=== PATIENT | male | born 1945 | race Caucasian/White ===

== ENCOUNTER 2019-09-13 06:05 | Outpatient (RCR) | payer MEDICARE, OTHER, SELFPAY | END 2019-09-21 00:01 | LOC: ONCMED 06:05 | PROVIDERS: Family Provider Nurse Practitioner Family; Referring Provider Thoracic Surgery (Cardiothoracic Vascular Surgery); Visit Provider Internal Medicine Medical Oncology | DX: D50.9 Iron deficiency anemia, unspecified (principal); R05 Cough; R06.02 Shortness of breath; I25.10 Atherosclerotic heart disease of native coronary artery without angina pectoris | CPT/HCPCS: 71275; 80053; 82728; 83540; 83550; 85025; 85610; 86850; 86900; 86901; 86920 ×2; J1642 ×2; J1940; J7050; P9040 ×2; Q9967 ==

== ENCOUNTER 2019-10-14 10:41 | Outpatient (CLI) | payer MEDICARE, OTHER, SELFPAY ==
[2019-10-14 11:34] LABS: Basophils % 0.6 %; Eosinophils # 0.1 10^3/uL (0.0-0.8); Eosinophils % 1.7 %; Hematocrit 40.6 % (42.0-52.0); Hemoglobin 12.4 g/dL (11.7-16.6); Lymphocytes # 0.8 10^3/uL (0.8-4.8); Lymphocytes % 12.1 %; Mean Corpuscular HGB Conc 30.5 g/dL (30.0-36.0); Mean Corpuscular Hemoglobin 25.3 pg (28.0-34.0); Mean Corpuscular Volume 82.7 fL (80-94); Mean Platelet Volume 10.7 fL (7.4-10.4); Monocytes # 0.6 10^3/uL (0.2-0.9); Monocytes % 8.5 %; Neutrophils % 76.8 %; Nucleated Red Blood Cells % 0 %; Platelet Count 271 10^3/cmm (130-400); Red Blood Count 4.91 10^6/uL (4.1-5.3); Red Cell Distribution Width 17.1 % (12.1-15.1); White Blood Count 6.5 10^3/uL (4.0-10.0)
[2019-10-14 11:53] LABS: INR 2.44 (0.8-1.2)
[2019-10-14 11:58] LABS: Alanine Aminotransferase 21 U/L (0-41); Albumin Level 4.1 g/dL (3.5-5.2); Alkaline Phosphatase 128 IU/L (40-130); Aspartate Amino Transferase 20 U/L (0-40); Blood Urea Nitrogen 19 mg/dL (8-23); Calcium 9.5 mg/dL (8.5-10.5); Carbon Dioxide 25 mmol/L (22-29); Chloride 102 mmol/L (98-107); Globulin 2.6 g/dL (1.3-4.6); Glucose 96 mg/dL (74-106); Iron 48 ug/dL (59-158); Percent Saturation 18.4 % (20-50); Sodium 137 mmol/L (136-145); Total Iron Binding Capacity 260 mg/dL; Total Protein 6.7 g/dL (6.6-8.7); Unsaturated Iron Binding 212 ug/dL (112-347)
--- NOTE | 2019-10-16 14:36 | ONC FU_ITS ---
Dr. Lee Patient Follow-Up Note Patient: Tru Quarles Unit #: [id number]: 1945 Dicatated By: Juan Lee M.D.Date of Visit:Oct 14, 2019 Onc Med Follow-up/Prog Note Chief Complaint: Metastatic squamous cell cancer. 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 He presented with several months of chest discomfort and dyspnea, without hemoptysis. He also had progressive dysphagia. Chest x-ray on 10/18/2013 showed bilateral pulmonary nodules. CT of the chest, abdomen, and pelvis on 11/12/2013 revealed numerous pulmonary nodules bilaterally, with a large 4.9 cm mass in the right thoracic inlet, located in the expected location of the thyroid gland, causing deviation of the trachea to the left. There was mediastinal and hilar adenopathy, a 1.3 cm liver lesion, and a mild thickening of the distal esophagus. An FNA of thyroid mass on 11/26/2013 was nondiagnostic. On 12/20/2013 his flexible bronchoscopy showed a left lower lobe extrinsic bronchial compression with thick secretions. Mediastinoscopy recovered left level III and anterior level I lymph nodes. Biopsy revealed metastatic squamous cell carcinoma, positive for CK5, desmoglein and p-63, and negative for TTF-1 and napsin A. P16 was negative. He was first seen by Dr. Parra on 12/29/2013. His PET/CT on 12/31/2013 was inadequate; liver lesions could not be evaluated further due to extravasation of the contrast in the left arm. MRI of the brain was negative for metastatic disease. His endoscopy showed no tumor in the head and neck or esophagus. The patient completed 3500 cGy of palliative radiation treatment to the neck. He was able to receive only 2 weekly doses of carboplatin with AUC of 2, complicated significant radiation induced esophagitis. Systemic chemotherapy with carboplatin AUC of 5 and Abraxane was initiated on 01/31/2014. It was complicated with significant hematological toxicities with ANC dionna at 300, hemoglobin 8.4 g/dL; and acute shingles in the right neck, shoulder region. Restaging PET/CT after 6 cycles of treatment on 06/18/2014 showed a very good partial response to the treatment, with residual FDG negative pulmonary nodules down to only 1 cm. He had no lesions in the liver. Maintenance therapy with Tarceva 150 mg daily began on 07/11/2014. Restaging CT of the chest on 09/29/2014 showed ongoing positive response to the treatment. After 9 cycles of Tarceva a restaging CT of the chest, abdomen, and pelvis on 03/29/15 showed significant progression of disease in the liver. Second line nivolumab began on 04/04/2015, complicated with thyroiditis and decreasing requirement of synthroid. Restaging CT after 7 cycles of nivolumab on 06/27/2015 showed significant progression of disease in the liver as well as lung and mediastinum. His treatment was switched back to carboplatin and Abraxane, as he had a good clinical response with that regimen. Cycle 1 was delivered on 06/29/2015. His treatment was complicated with asthenia and neutropenia, requiring dose reduction. Cycle 3 also required Neulasta prophylaxis. Restaging CT of the abdomen and pelvis on 09/19/2015, after 4 cycles of carboplatin and Abraxane, showed almost total resolution of the liver metastases and decrease in subcarinal adenopathy. 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 As he had a very good response to the treatment, carboplatin was stopped, and he continued treatment with Abraxane alone. Due to hematological toxicities he was able to tolerate only 2 out of [address] His [address] of the chest, abdomen, and pelvis on 12/26/2015 showed unchanged small bilateral pulmonary nodules, but further decrease in the liver mass. Abraxane was continued, and another staging CT of the chest, abdomen, and pelvis on 03/11/2016 showed stable disease, without progression. He continued on Abraxane day 1 & 8 schedule every 3 weeks. He began cycle 14 chemotherapy with single agent Abraxane on 05/02/2016. At that point the treatment was changed to a day 1/day 15 schedule with Neulasta prophylaxis. His day 15 Abraxane was held because of worsening neuropathy and continued gradual performance status decline. He tried increasing his gabapentin to a TID schedule to help the neuropathy symptoms, but it made him crazy , and he went back to twice a day schedule. Restaging CT scan of the chest, abdomen, and pelvis was performed on 05/16/16. Multiple small scattered pulmonary nodules were again noted. There was a nonspecific 19 mm lesion within the liver, directly adjacent to the intrahepatic IVC, not significantly changed from the prior exam. There was a nonspecific 7 mm left adrenal nodule noted. Overall, there was no apparent disease progression. On his follow-up visit in June 2016 he was showing decline in performance status, and with the CT scans showing stable disease, I did opt to put his chemotherapy on hold and just monitor him with observation/expectant management. Repeat CT scans of the chest, abdomen, and pelvis on09/02/2016 showed stable treated and scarred previous pulmonary metastatic nodules. There was no evidence of disease progression. There was stable right superior paratracheal or right lobe thyroid region soft tissue thickening and there was no evidence of a neoplastic process in the abdomen or pelvis. CT scans of the chest, abdomen, and pelvis on 11/29/16 showed no evidence of recurrent or disease progression in the chest. There was stable appearance of multiple bilateral pulmonary nodular foci. There was continued mid- lower third esophageal circumferential wall thickening. There was no evidence of disease progression in the abdomen/pelvis. The hepatic lobe subcapsular lesion was unchanged. There was evidence of right femoral popliteal bypass graft occlusion, but unchanged from previous studies. His restaging CT scans on 06/16/2017 showed no evidence for recurrent or metastatic disease. The liver showed a stable hypodense lesion adjacent to the IVC measuring 1.[address] scans on 09/01/2017 showed no evidence for recurrent metastatic disease throughout the chest, abdomen, and pelvis. Multilobar pulmonary nodules and interstitial thickening appeared stable compared to previous studies. A nodule in the right lobe of the liver appeared stable, possibly representing hemangioma. Diffuse esophageal thickening also appeared unchanged. CT scans of the chest on 12/08/2017 and on 02/24/2018 showed no evidence of recurrent or progressive disease. CT scans of the chest, abdomen, and pelvis on 06/01/2018 showed stable appearance of the chest with bilateral upper and lower lobe nodular scarring, right apical subpleural scarring, and right superior paratracheal soft tissue thickening. There was stable distal third esophageal wall thickening. There was no evidence of a neoplastic process of the abdomen or pelvis. A circumscribed 1.8 cm oval-shaped low-density nodule in the caudate lobe of the liver appeared stable. It was thought to perhaps have peripheral nodular enhancement suggestive of benign cavernous hemangioma. He continued observation/expectant management. His other medical illnesses include hypertension, coronary artery disease, peripheral arterial disease, and COPD. He underwent coronary artery bypass in November 2011 and he underwent femoropopliteal bypass in March 2012. He had a subsequent redo right femoropopliteal bypass, following which he has remained chronically anticoagulated with warfarin. He apparently also has had a mitral valve replacement. He had previously smoked a pack and half of cigarettes daily for 40 years. He quit smoking more than 8 years ago. INTERIM HISTORY: In early August 2018 his had called and reported a significant change in his condition with increased weakness/fatigue and new confusion. MRI of the brain on 09/09/2018 showed evidence of recent right basal ganglia infarct. There was no evidence of metastatic disease. Restaging PET/CT on 09/12/2018 showed tiny subpleural nodules measuring less than 4 mm. There was no evidence of active malignancy. He continued on observation/symptomatic management. Restaging CT scans on 04/16/2019 showed stable bilateral upper and lower lobe subpleural nodular densities and parenchymal scarring, right apical subpleural scarring, and right superior paratracheal soft tissue thickening. There was severe chronic emphysema. Overall, there was no evidence of disease progression in the chest and no evidence of a neoplastic process of the abdomen or pelvis. A left adrenal nodule appeared stable and there was no liver lesion identified. Repeat head MRI on 04/27/2019 showed no evidence of metastatic disease to the brain. There was evidence of remote left cerebellar and right basal ganglia infarcts and there are mild to moderate chronic microvascular ischemic changes noted. As of his follow-up visit on 07/14/2019 there is been no evidence of recurrence/progression of the lung cancer. At that point he was mildly anemic, and his serum iron studies were consistent with iron deficiency. He was started on an oral iron supplement. He was subsequently found to have a positive stool IFOB. With that finding he was referred to Dr. Dozier. On 08/30/2019 he underwent EGD and colonoscopy. There were no abnormal findings on the EGD. The colonoscopy showed a 2.5 cm sessile polyp in the cecum and a 7 mm sessile polyp at the hepatic flexure in the ascending colon. The ascending colon lesion was completely removed, but the cecal lesion was large enough that it had to be removed in piecemeal. Pathology on the hepatic flexure lesion showed tubular adenoma with low-grade dysplasia. The cecal lesion also showed tubular adenoma but with focal high-grade dysplasia arising in a background of low-grade dysplasia. There was no invasive malignancy identified. There was a focus of high-grade dysplasia extending to an edge of the resection. During subsequent followup there was a further drop in the hemoglobin. As of 09/13/2019 it was down to 7.9 g, and at that point he was given a transfusion of 2 units PRBC. He is seen for a follow-up visit. His energy is still not real good, and his activity is limited. ECOG is 2. He has good appetite. He has not had fever. He occasionally has sweating at night. His main complaint now is that he is short of breath with the least bit of exertion. He has not been having chest pain. He has seen Dr. Banerjee, and he is scheduled to have a stress test tomorrow. He currently has no GI or complaints. He has no significant joint or bone pain. He does not complain of headache. He still sometimes feels foggy headed or lightheaded. He also complains that his short-term memory is getting worse. Medications: Albuterol 1 Aerosol, solution Inhalation q 4 hours PRN, Ativan 1 (0.5 mg) Tablet Oral PRN, Atorvastatin Calcium 1 Tablet (of 40 mg) Oral at bedtime, aug betamet 1 (0.05 %) Cream daily PRN, Clindamycin HCl 1 APL (of 1 %) Gel (jelly) Oral PRN, Clopidogrel Bisulfate 1 (75 mg) Tablet Oral daily, Coumadin (5 mg) Tablet Oral Take as Directed, Coumadin (4 mg) Tablet Oral Take as Directed, Flonase Allergy Relief 1 [place](s) (of 50 mcg/act) Suspension Nasal daily PRN, Hydrocodone-Acetaminophen 1 - 2 Tablet (of 5-325 mg) Oral q 4 hours, Hydrocortisone 1 (2.5 %) Cream Topical PRN, Iron 1 Tablet (of 325 (65 fe) mg) Oral midday, Ketoconazole 1 APL (of 2 %) Cream Topical PRN, Klor-Con 10 1 (10 meq) Tablet, controlled release Oral daily, levoFLOXacin 1 Tablet (of 500 mg) Oral PRN, Levothroid 1 Tablet (of 100 mcg) Oral daily, Lidocaine-Prilocaine 1 APL (of 2.5-2.5 %) Cream Topical PRN, Magnesium 1 Tablet (of 250 mg) Oral daily, Melatonin 1 Capsule Oral at bedtime, Metoprolol Tartrate 0.5 Tablet (of 25 mg) Oral daily, Montelukast Sodium 1 Tablet (of 10 mg) Oral daily, Morphine Sulfate 1 - 2 Tablet (of 15 mg) Oral q 2 to 4 hours PRN, Morphine Sulfate Solution Oral PRN, Prochlorperazine Maleate 1 Tablet (of 10 mg) Oral q 4 hours PRN Allergies: ChloraPrep One Step Review of Systems: Constitutional - His energy is not very good. He has limited activity. His appetite is been okay. He has not had fever. He occasionally has sweating at night. ECOG score is 2, ENMT - He has a drippy nose. No mouth sores. No sore throat or difficulty swallowing, Hematologic/Lymphatic - He has just occasional bruising, Respiratory - He has shortness of breath with the least bit of exertion. He has a little bit of cough. No pleuritic pain or hemoptysis, Cardiovascular - No angina pain. No palpitations, Gastrointestinal - No nausea or vomiting. No heartburn or acid reflux. No diarrhea or constipation. No blood in the stool or black stools, Genitourinary (M) - No dysuria or hematuria. No urinary frequency. No urgency or incontinence, Musculoskeletal - No joint or bone pain, Integumentary - No skin complications, Neurologic - No headache. He sometimes feels foggy-headed. He complains of poor short term memory. He has neuropathy in his hands and feet, Psychiatric - No anxiety or depression. He is sleeping OK with melatonin. Vital Signs: Performed on Oct 14, 2019 12:22 Height - 68.00 in Weight - 160.6 lbs (LOW) BSA - 1.86 sq.m BMI - 24.42 Temperature - 97.1 F (LOW) Pulse - 91 /min Respiration - 16 /min BP - 117/62 mm(hg) O2 Sat - 98 % Pain - 0 Physical Examination: Constitutional - He appears somewhat weak generally, Eyes - Sclerae nonicteric. Conjunctivae clear, ENMT - No lesions noted in the oral cavity, Hematologic/Lymphatic - No cervical, clavicular, or axillary adenopathy, Respiratory - Lungs are clear with diminished air movement bilaterally, Cardiovascular - Heart rhythm is regular. There is a II/ systolic murmur. There is no gallop or rub noted, Abdomen - Soft. Liver and spleen are not enlarged. There is no abdominal mass or ascites noted and there is no inguinal adenopathy, Extremities - No edema, Neurologic - There are no focal neurologic deficits noted. Lab/Imaging: Test performed on Oct 14, 2019 11:00 Sodium 137 mmol/L Potassium 4.0 mmol/L Chloride 102 mmol/L CO2 25 mmol/L Anion Gap 14.0 BUN 19 mg/dL Creatinine 1.1 mg/dL Cr Clearance (Est) 60.8600 mL/min Glucose 96 mg/dL Calcium 9.5 mg/dL Protein, Total 6.7 g/dL Albumin 4.1 g/dL Globulin 2.6 g/dL Bilirubin, Total 1.0 mg/dL ALT (SGPT) 21 U/L AST (SGOT) 20 U/L Alkaline Phosphatase 128 IU/L PT 27.40 SECONDS WBC 6.5 10 3/uL INR 2.44 RBC 4.91 10 6/uL HGB 12.4 g/dL HCT 40.6 % MCV 82.7 fL MCH 25.3 pg MCHC 30.5 g/dL RDW 17.1 % Platelet Count 271 10 3/cmm MPV 10.7 fL Neutrophils 5.0 10 3/uL Lymphocytes 0.8 10 3/uL Monocytes 0.6 10 3/uL Eosinophils 0.1 10 3/uL Basophils 0.0 10 3/uL Neutrophil % 76.8 % Lymphocyte % 12.1 % Monocyte % 8.5 % Eosinophil % 1.7 % Basophils % 0.6 % Impression: 1. Patient has metastatic squamous cell carcinoma of unknown primary, but with clinical evidence of lung cancer. He had a large right-sided mass confluent with the thyroid gland, mediastinal adenopathy, bilateral lung nodules, and a liver lesion at initial presentation in September 2013. 2. He completed 35 noemi of radiation to the large mass at the level of the thoracic inlet. He was able to receive 2 weeks of carboplatin AUC of 2 with radiation. 3. Systemic chemotherapy with carboplatin AUC of 5 and Abraxane given from January 2014 to May 2014. Restaging imaging with PET/CT after 6 cycles of chemotherapy with a very good partial response. 4. Maintenance therapy Tarceva at 150 mg daily began on 07/11/14 based on SATURN trial. After 9 months of maintenance therapy he had progression of disease in liver. 5. Second line treatment with Nivolumab 3 mg/kg every 2 weeks began on 04/04/15. Unfortunately repeat CT of the chest abdomen/pelvis on 06/27/2015 after 3 months of treatment showed significant progression of disease in the liver lung and mediastinum. 6. He restarted systemic chemotherapy with carboplatin/Abraxane on 06/29/15. Restaging CT of the chest abdomen and pelvis on 09/19/2015 showed almost complete resolution of the liver metastases and decrease in subcarinal lymphadenopathy. Despite dose reductions, his treatment was complicated by progressive cytopenias, and at that point he continued treatment with Abraxane alone. 7. As of his followup visit in June 2016 he had completed 14 cycles of chemotherapy. Restaging CT scans had shown no obvious disease progression. He was having increasing fatigue and neuropathy symptoms, and at that point I had stopped his chemotherapy and began following him with observation/expectant management. His other medical illnesses include: 8. Hypertension. 9. Coronary artery disease. 10. Peripheral arterial disease. 11. COPD. 12. Hypothyroidism. He had significant improvement in his performance status after stopping chemotherapy. During subsequent follow-up he had remained stable clinically. In August 2018 he experienced a decline in his clinical status with increased weakness/fatigue and confusion. Brain MRI on 09/09/2018 showed no evidence of metastatic disease. There was, however, evidence of a recent right basal ganglia infarct despite the fact that he had been on anticoagulation with warfarin and Plavix. Restaging PET/CT on 09/12/2018 showed tiny subpleural pulmonary nodules measuring less than 4 mm. There was no evidence of active malignancy. At that point he continued on observation/symptomatic management. He has since then continued to complain of having a lightheaded/foggy feeling, and there has been further decline in his performance status. As of March [address] scans showed no evidence of disease progression in the chest and no evidence of a neoplastic process of the abdomen or pelvis. His repeat brain MRI in April 2019 showed evidence of remote left cerebellar and right basal ganglia infarcts, but no evidence of metastatic involvement. During followup his [employer] symptoms persisted. As of his visit on 07/14/2019 he had also become mildly anemic. His serum iron studies were consistent with iron deficiency, and he was subsequently confirmed to have a positive stool IFOB. He was referred to Dr. Dozier. His colonoscopy on 08/30/2019 showed sessile polyps in the cecum and in the ascending colon at the hepatic flexure. The hepatic flexure lesion was a tubular polyp with low-grade dysplasia, and it was completely removed. The cecal lesion was also a tubular adenoma but with focal high-grade dysplasia. It was large enough that it had to be removed piecemeal, and there was noted to be high-grade dysplasia at the edge of the specimen. Since then he has continued to have significant fatigue. He complains that he is short of breath with the least bit of activity. He has not been having chest pain. A specific cause has not been determined, but he currently is undergoing cardiac evaluation with Dr. Banerjee. His hemoglobin at this point is just borderline low, but is transferrin saturation and ferritin are still consistent with iron deficiency. Plan: He remains on observation/expectant management for the lung cancer. He will continue oral iron supplement for the iron deficiency. He will continue cardiology follow-up with Dr. Banerjee. He will continue follow-up for the cecal polyp with Dr. Dozier. I will tentatively plan a follow-up visit in 3 months, but I will continue to monitor his CBC and pro time monthly. If he is not correcting the iron deficiency with oral iron, he will be given parenteral iron replacement with Injectafer. Signed By: Juan Lee M.D. <<Signature on File>>
== END 2019-10-14 10:42 | disposition home or self-care (01) ==
PROVIDERS: PCP Internal Medicine Cardiovascular Disease; Visit Provider Internal Medicine Medical Oncology
DX: Z08 Encounter for follow-up examination after completed treatment for malignant neoplasm (principal); Z85.118 Personal history of other malignant neoplasm of bronchus and lung; I10 Essential (primary) hypertension; I25.10 Atherosclerotic heart disease of native coronary artery without angina pectoris; I73.9 Peripheral vascular disease, unspecified; J43.9 Emphysema, unspecified; R41.3 Other amnesia; R53.83 Other fatigue; D50.9 Iron deficiency anemia, unspecified; R06.02 Shortness of breath; Z79.01 Long term (current) use of anticoagulants; Z79.51 Long term (current) use of inhaled steroids; Z92.3 Personal history of irradiation; Z92.21 Personal history of antineoplastic chemotherapy; Z95.1 Presence of aortocoronary bypass graft; Z92.25 Personal history of immunosuppression therapy; Z87.891 Personal history of nicotine dependence; Z95.2 Presence of prosthetic heart valve; Z86.010 Personal history of colon polyps
CPT/HCPCS: 36591; 80053; 83540; 83550; 85025; 85610; 99214

== ENCOUNTER 2019-10-15 13:03 | Outpatient (CLI) | payer MEDICARE, OTHER, SELFPAY ==
--- NOTE | 2019-10-15 13:30 | USCV_ITS ---
Jeffreychaya Tru Age: 74 Gender: M : 1945 Exam Date: 10/15/2019 13:27 Ordering Phys: Adriel Banerjee MD ([email or web address]) Technologist: Kendall Sanchez Exam Location: [facility] [place] [facility] [place] Indication: CAD SOB BP: 120 / 60 HR: 70 Rhythm: Sinus Technical Quality: Fair MEASUREMENTS (Male / Female) Normal Values 2D ECHO LV Diastolic Diameter PLAX 4.0 cm 4.2 - 5.9 / 3.9 - 5.3 cm LV Systolic Diameter PLAX 2.8 cm IVS Diastolic Thickness 0.9 cm 0.6 - 1.0 / 0.6 - 0.9 cm IVS Systolic Thickness 1.6 cm LVPW Diastolic Thickness 1.2 cm 0.6 - 1.0 / 0.6 - 0.9 cm LVPW Systolic Thickness 1.3 cm LVOT Diameter 2.0 cm LV Ejection Fraction 2D Teich 56.3 % LV Ejection Fraction MOD 2C 71.2 % LV Ejection Fraction 2C AL 73.1 % LA Diameter 3.8 cm LA Width 2.6 cm LA Height 4.8 cm RA Width 3.3 cm RA Height 4.9 cm Aorta at Sinotubular Diameter 2.6 cm M-MODE LV Diastolic Diameter MM 5.1 cm 4.2 - 5.9 / 3.9 - 5.3 cm LV Systolic Diameter MM 3.5 cm LV Ejection Fraction MM Teich 59.4 % IVS Diastolic Thickness MM 1.0 cm 0.6 - 1.0 / 0.6 - 0.9 cm IVS Systolic Thickness MM 1.3 cm LVPW Diastolic Thickness MM 1.4 cm 0.6 - 1.0 / 0.6 - 0.9 cm LVPW Systolic Thickness MM 1.7 cm RV Diastolic Diameter MM 1.6 cm Aortic Annulus Diameter 3.3 cm LA Ao Ratio MM 1.2 MV E Point Septal Separation 0.9 cm DOPPLER AV Peak Velocity 167.0 cm/s LVOT Peak Velocity 74.0 cm/s AV Area Cont Eq vti 1.4 cm squared AV Area Cont Eq pk 1.4 cm squared MV Area PHT 2.9 cm squared Mitral E to A Ratio 0.9 MV E' Velocity 59.0 cm/s TR Peak Velocity 223.0 cm/s TR Peak Gradient 19.9 mmHg TV Peak E Velocity 69.0 cm/s Right Atrial Pressure 3.0 mmHg Pulmonary Artery Systolic Pressu 22.9 mmHg FINDINGS Left Ventricle Normal left ventricular size, systolic function and wall thickness, with no regional wall motion abnormalities. Grade I/IV diastolic dysfunction (abnormal relaxation filling pattern), normal to mildly elevated filling pressures. Left ventricular ejection fraction is estimated at 60 %. Right Ventricle Normal right ventricular size and systolic function. Normal right ventricular systolic pressure. Right Atrium The right atrium is normal in size. Left Atrium The left atrium is normal in size. Mitral Valve Structurally normal mitral valve. Trace mitral valve regurgitation. Aortic Valve Structurally normal trileaflet aortic valve. Moderate aortic valve calcification. Mild aortic valve stenosis, mean gradient 5.1 mmHg, SANKET 1.4 cm squared. Tricuspid Valve Structurally normal tricuspid valve. Trace tricuspid valve regurgitation. Pulmonic Valve Pulmonic valve not well visualized. Pericardium Normal pericardium without effusion. Aorta Normal ascending aorta dimension. CONCLUSIONS Normal left ventricular size, systolic function and wall thickness, with no regional wall motion abnormalities. Grade I/IV diastolic dysfunction (abnormal relaxation filling pattern), normal to mildly elevated filling pressures. Left ventricular ejection fraction is estimated at 60 %. Structurally normal mitral valve. Trace mitral valve regurgitation. Structurally normal trileaflet aortic valve. Moderate aortic valve calcification. Mild aortic valve stenosis, mean gradient 5.1 mmHg, SANKET 1.4 cm squared. There are no prior echocardiogram studies to compare. Dr. Adriel Banerjee MD (Electronically Signed) Final Date: 18 October 2019 17:56 S
== END 2019-10-15 13:04 | disposition home or self-care (01) ==
PROVIDERS: Visit Provider Internal Medicine Cardiovascular Disease
DX: I25.10 Atherosclerotic heart disease of native coronary artery without angina pectoris (principal); I08.3 Combined rheumatic disorders of mitral, aortic and tricuspid valves; R06.02 Shortness of breath; D64.9 Anemia, unspecified; Z95.1 Presence of aortocoronary bypass graft
CPT/HCPCS: 93306

== ENCOUNTER 2019-10-26 08:50 | Outpatient (CLI) | payer MEDICARE, OTHER, SELFPAY ==
--- NOTE | 2019-10-26 09:17 | ECG_ITS ---
NAME OF STUDY: LEXISCAN SESTAMIBI STRESS TEST INDICATION: [Chest Pain; Dyspnea, ] LEXISCAN STRESS TEST ORDERING PHYSICIAN: Lavonne CLINICAL INFORMATION: Chest pain INTERPRETATION: 1. The patient was brought to the laboratory where Lexiscan was infused over 20 seconds. The resting blood pressure was 181/82. Maximum blood pressure was 181/82. The resting heart rate was 58 beats per minute. The maximum heart rate is 89 beats per minute. 2. The baseline electrocardiogram reveals sinus rhythm with right ventricular conduction delay but otherwise a normal tracing. 2 premature atrial contractions. 3. With Lexiscan infusion, there were no ST segment changes to suggest ischemia. [] 4. The patient experienced no symptoms or arrhythmias during the examination. [] CONCLUSION: 1. Unremarkable Lexiscan infusion. [] 2. Nuclear imaging to follow. [] Electronically Signed On 10-26-2019 11:10:28 HOG MAN by Adriel Banerjee M.D. [email or web address]
--- NOTE | 2019-10-26 09:18 | NMCV_ITS ---
NM jey perf SPECT r/s* [id number] Tru Quarles Age: 74 Gender: M : 1945 Exam Date: 10/26/2019 09:18 Ordering Phys: Adriel Banerjee MD ([email or web address]) Technologist: KIRT Shaw Exam Location: [facility] Indications: SOB STRESS TEST Please see separate stress test report in [facility] for full findings IMAGE PROTOCOL Rest/Stress 1 Lexiscan Day Radiopharmaceutical Dose (mCi) Administration Site Administered by Rest: Tc-99m 11.0 IV KIRT Shaw Sestamibi Stress:Tc-99m 32.9 IV KIRT Shaw Sestamibi Rest: 26-Oct-2019 60 Discovery 630 Stress: 26-Oct-2019 45 Discovery 630 0.4mg Lexiscan. Images obtained in supine and prone position. SPECT RESULTS Technical Quality: Excellent Raw Data Analysis: Normal Image Corrections: No attenuation or motion correction applied Summed Stress Score: 0 Summed Rest Score: 1 Summed Difference Score: 0 PERFUSION FINDINGS Medium-size area of decreased tracer uptake noted in basal to distal inferior and inferoseptal wall on the rest images which improved over stress images suggestive of artifact. FUNCTIONAL RESULTS (calculated via Gated SPECT) Stress Image LV EF (%): 55 Stress EDV (mL):47 TID: 0.79 Stress ESV (mL):21 Rest Image LV EF (%): 55 FUNCTIONAL FINDINGS: There is normal left ventricular systolic function. IMPRESSIONS Myocardial perfusion imaging is normal and low probability for obstructive coronary artery disease. EKG segment will be documented separately Aleksandra Moses MD (Electronically Signed) Final Date: 26 October 2019 19:46 S
[2019-10-26 09:21] VITALS: BMI 24.6
[2019-10-26 10:56] VITALS: BP 162/82; PULSE 87
[2019-10-26] MEDS: regadenoson 0.4 Mg/5 ml Syringe IVP (10:56)
== END 2019-10-26 08:51 | disposition home or self-care (01) ==
LOC: CDL 08:52
PROVIDERS: Visit Provider Internal Medicine Cardiovascular Disease
DX: I25.10 Atherosclerotic heart disease of native coronary artery without angina pectoris (principal); R06.02 Shortness of breath; Z95.1 Presence of aortocoronary bypass graft
CPT/HCPCS: 78452; 93017; A9500; J2785

== ENCOUNTER 2019-11-15 11:55 | Outpatient (CLI) | payer MEDICARE, OTHER, SELFPAY ==
[2019-11-15 12:41] LABS: Basophils % 0.3 %; Eosinophils # 0.1 10^3/uL (0.0-0.8); Eosinophils % 1.3 %; Hematocrit 40.4 % (42.0-52.0); Hemoglobin 12.5 g/dL (11.7-16.6); Lymphocytes # 0.6 10^3/uL (0.8-4.8); Lymphocytes % 7.9 %; Mean Corpuscular HGB Conc 30.9 g/dL (30.0-36.0); Mean Corpuscular Hemoglobin 24.8 pg (28.0-34.0); Mean Platelet Volume 10.7 fL (7.4-10.4); Monocytes # 0.7 10^3/uL (0.2-0.9); Monocytes % 8.7 %; Neutrophils # 6.2 10^3/uL (1.8-7.7); Neutrophils % 81.5 %; Nucleated Red Blood Cells % 0 %; Platelet Count 253 10^3/cmm (130-400); Red Blood Count 5.05 10^6/uL (4.1-5.3); Red Cell Distribution Width 18.5 % (12.1-15.1); White Blood Count 7.6 10^3/uL (4.0-10.0)
[2019-11-15 12:55] LABS: INR 2.26 (0.8-1.2)
== END 2019-11-15 11:56 | disposition home or self-care (01) ==
LOC: ONCMED 11:55
PROVIDERS: PCP Family Medicine; Visit Provider Internal Medicine Medical Oncology
DX: C78.02 Secondary malignant neoplasm of left lung (principal); D64.9 Anemia, unspecified; Z51.81 Encounter for therapeutic drug level monitoring; Z79.01 Long term (current) use of anticoagulants
CPT/HCPCS: 36591; 85025; 85610

== ENCOUNTER 2019-12-14 11:09 | Outpatient (CLI) | payer MEDICARE, OTHER, SELFPAY ==
[2019-12-14 11:54] LABS: Basophils % 0.6 %; Eosinophils # 0.2 10^3/uL (0.0-0.8); Eosinophils % 2.2 %; Hematocrit 45.2 % (42.0-52.0); Hemoglobin 14.2 g/dL (11.7-16.6); Lymphocytes % 14.1 %; Mean Corpuscular HGB Conc 31.4 g/dL (30.0-36.0); Mean Corpuscular Hemoglobin 26.8 pg (28.0-34.0); Mean Corpuscular Volume 85.4 fL (80-94); Mean Platelet Volume 10.9 fL (7.4-10.4); Monocytes # 0.6 10^3/uL (0.2-0.9); Monocytes % 8.8 %; Nucleated Red Blood Cells % 0 %; Platelet Count 261 10^3/cmm (130-400); Red Blood Count 5.29 10^6/uL (4.1-5.3); Red Cell Distribution Width 19.1 % (12.1-15.1); White Blood Count 6.8 10^3/uL (4.0-10.0)
[2019-12-14 12:28] LABS: INR 1.97 (0.8-1.2)
[2019-12-14 12:39] LABS: Alanine Aminotransferase 21 U/L (0-41); Alkaline Phosphatase 123 IU/L (40-130); Anion Gap 15.3 (5-19); Aspartate Amino Transferase 21 U/L (0-40); Blood Urea Nitrogen 18 mg/dL (8-23); Calcium 9.5 mg/dL (8.5-10.5); Carbon Dioxide 25 mmol/L (22-29); Chloride 104 mmol/L (98-107); Ferritin 25 ng/mL (30-400); Globulin 2.8 g/dL (1.3-4.6); Glucose 88 mg/dL (65-115); Iron 66 ug/dL (59-158); Osmolality Calculated 286 mOsm/kg (285-295); Percent Saturation 26.2 % (20-50); Potassium 4.3 mmol/L (3.5-5.1); Sodium 140 mmol/L (136-145); Total Bilirubin 0.9 mg/dL (0.15-1.2); Total Iron Binding Capacity 251 mcg/dl; Total Protein 6.8 g/dL (6.6-8.7); Unsaturated Iron Binding 185 ug/dL (112-347)
== END 2019-12-14 11:10 | disposition home or self-care (01) ==
LOC: ONCMED 11:09
PROVIDERS: PCP Family Medicine; Visit Provider Internal Medicine Medical Oncology
DX: D64.9 Anemia, unspecified (principal); Z79.01 Long term (current) use of anticoagulants; C77.1 Secondary and unspecified malignant neoplasm of intrathoracic lymph nodes; C78.02 Secondary malignant neoplasm of left lung; C78.7 Secondary malignant neoplasm of liver and intrahepatic bile duct; C80.1 Malignant (primary) neoplasm, unspecified; Z95.1 Presence of aortocoronary bypass graft
CPT/HCPCS: 36591; 80053; 82728; 83540; 83550; 83735; 85025; 85610

== ENCOUNTER 2020-01-13 12:27 | Outpatient (CLI) | payer MEDICARE, OTHER, SELFPAY ==
[2020-01-13 13:26] LABS: Basophils % 0.6 %; Eosinophils # 0.2 10^3/uL (0.0-0.8); Eosinophils % 2.2 %; Hematocrit 42.8 % (42.0-52.0); Hemoglobin 13.6 g/dL (11.7-16.6); Lymphocytes # 0.8 10^3/uL (0.8-4.8); Lymphocytes % 11.6 %; Mean Corpuscular HGB Conc 31.8 g/dL (30.0-36.0); Mean Corpuscular Volume 84.9 fL (80-94); Mean Platelet Volume 10.8 fL (7.4-10.4); Monocytes # 0.7 10^3/uL (0.2-0.9); Monocytes % 9.5 %; Neutrophils # 5.3 10^3/uL (1.8-7.7); Neutrophils % 75.8 %; Nucleated Red Blood Cells % 0 %; Platelet Count 224 10^3/cmm (130-400); Red Blood Count 5.04 10^6/uL (4.1-5.3); Red Cell Distribution Width 17.4 % (12.1-15.1)
[2020-01-13 13:30] LABS: INR 2.15 (0.8-1.2)
[2020-01-13 13:41] LABS: Alanine Aminotransferase 24 U/L (0-41); Albumin Level 3.8 g/dL (3.5-5.2); Alkaline Phosphatase 115 IU/L (40-130); Anion Gap 16.3 (5-19); Aspartate Amino Transferase 20 U/L (0-40); Blood Urea Nitrogen 21 mg/dL (8-23); Calcium 9.3 mg/dL (8.5-10.5); Carbon Dioxide 25 mmol/L (22-29); Chloride 101 mmol/L (98-107); Ferritin 24 ng/mL (30-400); Glucose 104 mg/dL (65-115); Iron 56 ug/dL (59-158); Osmolality Calculated 283 mOsm/kg (285-295); Percent Saturation 24.1 % (20-50); Potassium 4.3 mmol/L (3.5-5.1); Sodium 138 mmol/L (136-145); Total Bilirubin 0.8 mg/dL (0.15-1.2); Total Iron Binding Capacity 232 mcg/dl; Total Protein 6.8 g/dL (6.6-8.7); Unsaturated Iron Binding 176 ug/dL (112-347)
--- NOTE | 2020-01-13 19:19 | ONC FU_ITS ---
Dr. Lee Patient Follow-Up Note Patient: Tru Quarles Unit #: [id number]: 1945 Dicatated By: Juan Lee M.D.Date of Visit:Jan 13, 2020 Onc Med Follow-up/Prog Note Chief Complaint: Metastatic squamous cell cancer. 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 He presented with several months of chest discomfort and dyspnea, without hemoptysis. He also had progressive dysphagia. Chest x-ray on 10/18/2013 showed bilateral pulmonary nodules. CT of the chest, abdomen, and pelvis on 11/12/2013 revealed numerous pulmonary nodules bilaterally, with a large 4.9 cm mass in the right thoracic inlet, located in the expected location of the thyroid gland, causing deviation of the trachea to the left. There was mediastinal and hilar adenopathy, a 1.3 cm liver lesion, and a mild thickening of the distal esophagus. An FNA of thyroid mass on 11/26/2013 was nondiagnostic. On 12/20/2013 his flexible bronchoscopy showed a left lower lobe extrinsic bronchial compression with thick secretions. Mediastinoscopy recovered left level III and anterior level I lymph nodes. Biopsy revealed metastatic squamous cell carcinoma, positive for CK5, desmoglein and p-63, and negative for TTF-1 and napsin A. P16 was negative. He was first seen by Dr. Parra on 12/29/2013. His PET/CT on 12/31/2013 was inadequate; liver lesions could not be evaluated further due to extravasation of the contrast in the left arm. MRI of the brain was negative for metastatic disease. His endoscopy showed no tumor in the head and neck or esophagus. The patient completed 3500 cGy of palliative radiation treatment to the neck. He was able to receive only 2 weekly doses of carboplatin with AUC of 2, complicated significant radiation induced esophagitis. Systemic chemotherapy with carboplatin AUC of 5 and Abraxane was initiated on 01/31/2014. It was complicated with significant hematological toxicities with ANC dionna at 300, hemoglobin 8.4 g/dL; and acute shingles in the right neck, shoulder region. Restaging PET/CT after 6 cycles of treatment on 06/18/2014 showed a very good partial response to the treatment, with residual FDG negative pulmonary nodules down to only 1 cm. He had no lesions in the liver. Maintenance therapy with Tarceva 150 mg daily began on 07/11/2014. Restaging CT of the chest on 09/29/2014 showed ongoing positive response to the treatment. After 9 cycles of Tarceva a restaging CT of the chest, abdomen, and pelvis on 03/29/15 showed significant progression of disease in the liver. Second line nivolumab began on 04/04/2015, complicated with thyroiditis and decreasing requirement of synthroid. Restaging CT after 7 cycles of nivolumab on 06/27/2015 showed significant progression of disease in the liver as well as lung and mediastinum. His treatment was switched back to carboplatin and Abraxane, as he had a good clinical response with that regimen. Cycle 1 was delivered on 06/29/2015. His treatment was complicated with asthenia and neutropenia, requiring dose reduction. Cycle 3 also required Neulasta prophylaxis. Restaging CT of the abdomen and pelvis on 09/19/2015, after 4 cycles of carboplatin and Abraxane, showed almost total resolution of the liver metastases and decrease in subcarinal adenopathy. 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 As he had a very good response to the treatment, carboplatin was stopped, and he continued treatment with Abraxane alone. Due to hematological toxicities he was able to tolerate only 2 out of [address] His [address] of the chest, abdomen, and pelvis on 12/26/2015 showed unchanged small bilateral pulmonary nodules, but further decrease in the liver mass. Abraxane was continued, and another staging CT of the chest, abdomen, and pelvis on 03/11/2016 showed stable disease, without progression. He continued on Abraxane day 1 & 8 schedule every 3 weeks. He began cycle 14 chemotherapy with single agent Abraxane on 05/02/2016. At that point the treatment was changed to a day 1/day 15 schedule with Neulasta prophylaxis. His day 15 Abraxane was held because of worsening neuropathy and continued gradual performance status decline. He tried increasing his gabapentin to a TID schedule to help the neuropathy symptoms, but it made him crazy , and he went back to twice a day schedule. Restaging CT scan of the chest, abdomen, and pelvis was performed on 05/16/16. Multiple small scattered pulmonary nodules were again noted. There was a nonspecific 19 mm lesion within the liver, directly adjacent to the intrahepatic IVC, not significantly changed from the prior exam. There was a nonspecific 7 mm left adrenal nodule noted. Overall, there was no apparent disease progression. On his follow-up visit in June 2016 he was showing decline in performance status, and with the CT scans showing stable disease, I did opt to put his chemotherapy on hold and just monitor him with observation/expectant management. Repeat CT scans of the chest, abdomen, and pelvis on09/02/2016 showed stable treated and scarred previous pulmonary metastatic nodules. There was no evidence of disease progression. There was stable right superior paratracheal or right lobe thyroid region soft tissue thickening and there was no evidence of a neoplastic process in the abdomen or pelvis. CT scans of the chest, abdomen, and pelvis on 11/29/16 showed no evidence of recurrent or disease progression in the chest. There was stable appearance of multiple bilateral pulmonary nodular foci. There was continued mid- lower third esophageal circumferential wall thickening. There was no evidence of disease progression in the abdomen/pelvis. The hepatic lobe subcapsular lesion was unchanged. There was evidence of right femoral popliteal bypass graft occlusion, but unchanged from previous studies. His restaging CT scans on 06/16/2017 showed no evidence for recurrent or metastatic disease. The liver showed a stable hypodense lesion adjacent to the IVC measuring 1.[address] scans on 09/01/2017 showed no evidence for recurrent metastatic disease throughout the chest, abdomen, and pelvis. Multilobar pulmonary nodules and interstitial thickening appeared stable compared to previous studies. A nodule in the right lobe of the liver appeared stable, possibly representing hemangioma. Diffuse esophageal thickening also appeared unchanged. CT scans of the chest on 12/08/2017 and on 02/24/2018 showed no evidence of recurrent or progressive disease. CT scans of the chest, abdomen, and pelvis on 06/01/2018 showed stable appearance of the chest with bilateral upper and lower lobe nodular scarring, right apical subpleural scarring, and right superior paratracheal soft tissue thickening. There was stable distal third esophageal wall thickening. There was no evidence of a neoplastic process of the abdomen or pelvis. A circumscribed 1.8 cm oval-shaped low-density nodule in the caudate lobe of the liver appeared stable. It was thought to perhaps have peripheral nodular enhancement suggestive of benign cavernous hemangioma. He continued observation/expectant management. His other medical illnesses include hypertension, coronary artery disease, peripheral arterial disease, and COPD. He underwent coronary artery bypass in November 2011 and he underwent femoropopliteal bypass in March 2012. He had a subsequent redo right femoropopliteal bypass, following which he has remained chronically anticoagulated with warfarin. He apparently also has had a mitral valve replacement. He had previously smoked a pack and half of cigarettes daily for 40 years. He quit smoking more than 8 years ago. INTERIM HISTORY: In early August 2018 his had called and reported a significant change in his condition with increased weakness/fatigue and new confusion. MRI of the brain on 09/09/2018 showed evidence of recent right basal ganglia infarct. There was no evidence of metastatic disease. Restaging PET/CT on 09/12/2018 showed tiny subpleural nodules measuring less than 4 mm. There was no evidence of active malignancy. He continued on observation/symptomatic management. Restaging CT scans on 04/16/2019 showed stable bilateral upper and lower lobe subpleural nodular densities and parenchymal scarring, right apical subpleural scarring, and right superior paratracheal soft tissue thickening. There was severe chronic emphysema. Overall, there was no evidence of disease progression in the chest and no evidence of a neoplastic process of the abdomen or pelvis. A left adrenal nodule appeared stable and there was no liver lesion identified. Repeat head MRI on 04/27/2019 showed no evidence of metastatic disease to the brain. There was evidence of remote left cerebellar and right basal ganglia infarcts and there are mild to moderate chronic microvascular ischemic changes noted. As of his follow-up visit on 07/14/2019 there had been no evidence of recurrence/progression of the lung cancer. However, at that point he had become mildly anemic, and his serum iron studies were consistent with iron deficiency. He was started on an oral iron supplement. He was subsequently found to have a positive stool IFOB. With that finding he was referred to Dr. Dozier. On 08/30/2019 he underwent EGD and colonoscopy. There were no abnormal findings on the EGD. The colonoscopy showed a 2.5 cm sessile polyp in the cecum and a 7 mm sessile polyp at the hepatic flexure in the ascending colon. The ascending colon lesion was completely removed, but the cecal lesion was large enough that it had to be removed in piecemeal. Pathology on the hepatic flexure lesion showed tubular adenoma with low-grade dysplasia. The cecal lesion also showed tubular adenoma but with focal high-grade dysplasia arising in a background of low-grade dysplasia. There was no invasive malignancy identified. There was a focus of high-grade dysplasia extending to an edge of the resection. During subsequent followup there was a further drop in the hemoglobin. As of 09/13/2019 it was down to 7.9 g, and at that point he was given a transfusion of 2 units PRBC. As of his follow-up visit on 10/14/2019 his hemoglobin was back up to 12.4 g, but his serum iron studies and ferritin were still consistent with iron deficiency. He was still having significant fatigue, and he continued to complain of shortness of breath. CT pulmonary angiogram at that time showed no evidence of pulmonary embolus. There were advanced chronic emphysematous changes, but there is no acute pulmonary infiltrate. Small subpleural opacities and parenchymal scarring appeared stable, as did soft tissue thickening in the right paratracheal area. A 7 mm adrenal nodule also appeared stable. During that time he also was seen by Dr. Banerjee and his subsequent cardiac evaluation with echocardiogram and stress test were unrevealing. He is seen for a follow-up visit. His main complaint is that any exertion gets him short of breath. He does not have much activity, but he is still able to do some light work. ECOG score is 1. He has good appetite. He has not had fever. He occasionally has night sweating. He does not complain of resting dyspnea or chest pain. He has just occasional cough. He has no GI or complaints. He has no significant joint or bone pain. He still reports having occasional episodes of feeling foggy headed. He continues to have numbness and tingling in his hands and feet. Medications: Albuterol 1 Aerosol, solution Inhalation q 4 hours PRN, Ativan 1 (0.5 mg) Tablet Oral PRN, Atorvastatin Calcium 1 Tablet (of 40 mg) Oral at bedtime, aug betamet 1 (0.05 %) Cream daily PRN, Clindamycin HCl 1 APL (of 1 %) Gel (jelly) Oral PRN, Clopidogrel Bisulfate 1 (75 mg) Tablet Oral daily, Coumadin (5 mg) Tablet Oral Take as Directed, Coumadin (4 mg) Tablet Oral Take as Directed, Flonase Allergy Relief 1 [place](s) (of 50 mcg/act) Suspension Nasal daily PRN, Hydrocodone-Acetaminophen 1 - 2 Tablet (of 5-325 mg) Oral q 4 hours, Hydrocortisone 1 (2.5 %) Cream Topical PRN, Iron 1 Tablet (of 325 (65 fe) mg) Oral midday, Ketoconazole 1 APL (of 2 %) Cream Topical PRN, Klor-Con 10 1 (10 meq) Tablet, controlled release Oral daily, levoFLOXacin 1 Tablet (of 500 mg) Oral PRN, Levothroid 1 Tablet (of 100 mcg) Oral daily, Lidocaine-Prilocaine 1 APL (of 2.5-2.5 %) Cream Topical PRN, Magnesium 1 Tablet (of 250 mg) Oral daily, Melatonin 1 Capsule Oral at bedtime, Metoprolol Tartrate 0.5 Tablet (of 25 mg) Oral daily, Montelukast Sodium 1 Tablet (of 10 mg) Oral daily, Morphine Sulfate 1 - 2 Tablet (of 15 mg) Oral q 2 to 4 hours PRN, Morphine Sulfate Solution Oral PRN, Prochlorperazine Maleate 1 Tablet (of 10 mg) Oral q 4 hours PRN Allergies: ChloraPrep One Step Review of Systems: Constitutional - His energy level is okay. He is mainly sedentary at home. His appetite is good and weight is stable. No fever, chills or hot flashes. He has occasional night sweats. ECOG score is 2, ENMT - No sinus congestion/drainage. No mouth sores. No sore throat or difficulty swallowing, Hematologic/Lymphatic - He bruises easily, Respiratory - He gets shortness of breath with any activity. He has an occasional cough. No pleuritic pain or hemoptysis, Cardiovascular - No angina pain. No palpitations, Gastrointestinal - No nausea or vomiting. No heartburn or acid reflux. No diarrhea or constipation. No blood in the stool or black stools, Genitourinary (M) - No dysuria or hematuria. No urinary frequency. No urgency or incontinence, Musculoskeletal - No joint or bone pain, Integumentary - No skin complications, Neurologic - No headache or dizziness. He has episodes of feeling foggy-headed. He has tingling in his hands, Psychiatric - No anxiety or depression. He is taking Melatonin for sleep. Vital Signs: Performed on Jan 13, 2020 13:39 Height - 68.00 in Weight - 162.2 lbs (HIGH) BSA - 1.87 sq.m BMI - 24.66 Temperature - 97.2 F (LOW) Pulse - 58 /min (LOW) Respiration - 22 /min BP - 128/66 mm(hg) O2 Sat - 99 % Pain - 0 Physical Examination: Constitutional - He looks pretty good generally, Eyes - Sclerae nonicteric. Conjunctivae clear, ENMT - No lesions noted in the oral cavity, Hematologic/Lymphatic - No cervical, clavicular, or axillary adenopathy, Respiratory - Lungs are clear with diminished air movement bilaterally, Cardiovascular - Heart rhythm is irregular. There is a II/ systolic murmur. There is no gallop or rub noted, Abdomen - Soft. Liver and spleen are not enlarged. There is no abdominal mass or ascites noted and there is no inguinal adenopathy, Extremities - No edema, Neurologic - There are no focal neurologic deficits noted. Lab/Imaging: Test performed on Jan 13, 2020 12:51 Ferritin 24 ng/mL Iron 56 mcg/dL Magnesium 2.0 mg/dL Sodium 138 mmol/L Iron Binding Capacity (TIBC) 232 mcg/dl Potassium 4.3 mmol/L % Iron Saturation 24.1 % Chloride 101 mmol/L CO2 25 mmol/L UIBC 176 mcg/dL Anion Gap 16.3 BUN 21 mg/dL Creatinine 1.1 mg/dL Cr Clearance (Est) 60.8600 mL/min Glucose 104 mg/dL Calcium 9.3 mg/dL Protein, Total 6.8 g/dL Albumin 3.8 g/dL Globulin 3.0 g/dL Bilirubin, Total 0.8 mg/dL ALT (SGPT) 24 U/L AST (SGOT) 20 U/L Alkaline Phosphatase 115 IU/L PT 24.70 SECONDS WBC 7.0 10 3/uL INR 2.15 RBC 5.04 10 6/uL HGB 13.6 g/dL HCT 42.8 % MCV 84.9 fL MCH 27.0 pg MCHC 31.8 g/dL RDW 17.4 % Platelet Count 224 10 3/cmm MPV 10.8 fL Neutrophils 5.3 10 3/uL Lymphocytes 0.8 10 3/uL Monocytes 0.7 10 3/uL Eosinophils 0.2 10 3/uL Basophils 0.0 10 3/uL Neutrophil % 75.8 % Lymphocyte % 11.6 % Monocyte % 9.5 % Eosinophil % 2.2 % Basophils % 0.6 % Impression: 1. Patient has metastatic squamous cell carcinoma of unknown primary, but with clinical evidence of lung cancer. He had a large right-sided mass confluent with the thyroid gland, mediastinal adenopathy, bilateral lung nodules, and a liver lesion at initial presentation in September 2013. 2. He completed 35 noemi of radiation to the large mass at the level of the thoracic inlet. He was able to receive 2 weeks of carboplatin AUC of 2 with radiation. 3. Systemic chemotherapy with carboplatin AUC of 5 and Abraxane given from January 2014 to May 2014. Restaging imaging with PET/CT after 6 cycles of chemotherapy with a very good partial response. 4. Maintenance therapy Tarceva at 150 mg daily began on 07/11/14 based on SATURN trial. After 9 months of maintenance therapy he had progression of disease in liver. 5. Second line treatment with Nivolumab 3 mg/kg every 2 weeks began on 04/04/15. Unfortunately repeat CT of the chest abdomen/pelvis on 06/27/2015 after 3 months of treatment showed significant progression of disease in the liver lung and mediastinum. 6. He restarted systemic chemotherapy with carboplatin/Abraxane on 06/29/15. Restaging CT of the chest abdomen and pelvis on 09/19/2015 showed almost complete resolution of the liver metastases and decrease in subcarinal lymphadenopathy. Despite dose reductions, his treatment was complicated by progressive cytopenias, and at that point he continued treatment with Abraxane alone. 7. As of his followup visit in June 2016 he had completed 14 cycles of chemotherapy. Restaging CT scans had shown no obvious disease progression. He was having increasing fatigue and neuropathy symptoms, and at that point I had stopped his chemotherapy and began following him with observation/expectant management. His other medical illnesses include: 8. Hypertension. 9. Coronary artery disease. 10. Peripheral arterial disease. 11. COPD. 12. Hypothyroidism. He had significant improvement in his performance status after stopping chemotherapy. During subsequent follow-up he had remained stable clinically. In August 2018 he experienced a decline in his clinical status with increased weakness/fatigue and confusion. Brain MRI on 09/09/2018 showed no evidence of metastatic disease. There was, however, evidence of a recent right basal ganglia infarct despite the fact that he had been on anticoagulation with warfarin and Plavix. Restaging PET/CT on 09/12/2018 showed tiny subpleural pulmonary nodules measuring less than 4 mm. There was no evidence of active malignancy. At that point he continued on observation/symptomatic management. He then continued to complain of having a lightheaded/foggy feeling, and there was further decline in his performance status. As of March [address] scans showed no evidence of disease progression in the chest and no evidence of a neoplastic process of the abdomen or pelvis. His repeat brain MRI in April 2019 showed evidence of remote left cerebellar and right basal ganglia infarcts, but no evidence of metastatic involvement. During followup his [employer] symptoms persisted. As of his visit on 07/14/2019 he had also become mildly anemic. His serum iron studies were consistent with iron deficiency, and he was subsequently confirmed to have a positive stool IFOB. He was referred to Dr. Dozier. His colonoscopy on 08/30/2019 showed sessile polyps in the cecum and in the ascending colon at the hepatic flexure. The hepatic flexure lesion was a tubular polyp with low-grade dysplasia, and it was completely removed. The cecal lesion was also a tubular adenoma but with focal high-grade dysplasia. It was large enough that it had to be removed piecemeal, and there was noted to be high-grade dysplasia at the edge of the specimen. As of 09/13/2019 his anemia worsened to the point that he required a transfusion of 2 units of PRBC. At that time he complained of increased shortness of breath. CT pulmonary angiogram showed no evidence of pulmonary emboli or other acute findings. There was no obvious recurrence/progression of the lung cancer. He also underwent cardiac evaluation with Dr. Banerjee, and his echocardiogram and stress test were unrevealing. His hemoglobin has since then remained adequate. He is continued to complain of fatigue and shortness of breath. Plan: He will be scheduled for repeat CT pulmonary angiogram. Also arrange for pulmonary consultation with Dr. Fritz. In the absence of any evidence of recurrence/progression of the lung cancer, he remains on observation/expectant management. He will continue to follow-up with Dr. Dozier for the colonic polyps. He will continue his oral iron supplementation. Signed By: Juan Lee M.D. <<Signature on File>>
== END 2020-01-13 12:28 | disposition home or self-care (01) ==
PROVIDERS: Visit Provider Internal Medicine Medical Oncology
DX: Z08 Encounter for follow-up examination after completed treatment for malignant neoplasm (principal); Z85.118 Personal history of other malignant neoplasm of bronchus and lung; D50.9 Iron deficiency anemia, unspecified; K63.5 Polyp of colon; Z92.21 Personal history of antineoplastic chemotherapy; I10 Essential (primary) hypertension; I25.10 Atherosclerotic heart disease of native coronary artery without angina pectoris; I73.9 Peripheral vascular disease, unspecified; J44.9 Chronic obstructive pulmonary disease, unspecified; E03.9 Hypothyroidism, unspecified
CPT/HCPCS: 36591; 80053; 82728; 83540; 83550; 83735; 85025; 85610; 99214

== ENCOUNTER 2020-01-17 13:33 | Outpatient (CLI) | payer MEDICARE, OTHER, SELFPAY ==
--- NOTE | 2020-01-17 13:49 | CT_ITS ---
WS: [id number] CTA OF THE CHEST WITH PULMONARY EMBOLISM PROTOCOL TECHNIQUE: High-resolution contrast enhanced CTA of the chest with coronal and sagittal reformatted i mages with pulmonary embolism protocol. MIP images are also reviewed. CLINICAL INFORMATION: SHORTNESS OF BREATH, LUNG CANCER COMPARISON: CTA chest September 13, 2019 DLP: 801.[address] scans at [facility] use at least one of these dose optimization techniques: automat ed exposure control; mA and/or kV adjustment per patient size (includes targeted exams where dose is matched to clinical indication); or iterative reconstruction. FINDINGS:Proximal main pulmonary arteries are normal. Segmental and subsegmental pulmonary arteries a re normal. No evidence of pulmonary embolus. Advanced chronic emphysematous changes. No acute pulmonary infiltrates. No consolidation or pleural f luid. Stable subpleural opacities and parenchymal scarring. This is unchanged in appearance since the prior examination. Stable right superior paratracheal soft tissue. Chronic calcified granulomatous d isease. V Vascular calcification including coronary. Prior CABG. Sternotomy. Left subclavian Port-A-Cath. Stabl e left adrenal nodule measuring 7 mm. Small esophageal hiatal hernia. Stable anterior wedging in the mid thoracic spine. CT/CT angio chest PE protcl [id number] IMPRESSION: 1. No evidence of pulmonary embolus. 2. Stable subpleural opacities and parenchymal scarring 3. Vascular calcification including coronary. 4. Stable 7 mm adrenal nodule.
[2020-01-17] MEDS: iohexol 350 mg/mL 100 mL Btl IV (14:22)
== END 2020-01-17 13:34 | disposition home or self-care (01) ==
PROVIDERS: Visit Provider Internal Medicine Medical Oncology
DX: C34.90 Malignant neoplasm of unspecified part of unspecified bronchus or lung (principal); R06.02 Shortness of breath
CPT/HCPCS: 71275; Q9967

== ENCOUNTER 2020-02-10 10:50 | Outpatient (CLI) | payer MEDICARE, OTHER, SELFPAY ==
[2020-02-10 11:55] LABS: INR 1.44 (0.8-1.2)
== END 2020-02-10 10:51 | disposition home or self-care (01) ==
LOC: ONCMED 10:54
PROVIDERS: Visit Provider Internal Medicine Medical Oncology
DX: C80.1 Malignant (primary) neoplasm, unspecified (principal); C78.7 Secondary malignant neoplasm of liver and intrahepatic bile duct; C78.02 Secondary malignant neoplasm of left lung; C77.1 Secondary and unspecified malignant neoplasm of intrathoracic lymph nodes
CPT/HCPCS: 36415; 36591; 85610

== ENCOUNTER 2020-02-15 07:59 | Day surgery (SDC) | payer MEDICARE, OTHER, SELFPAY ==
[2020-02-11 13:27] VITALS: BMI 24.5
--- NOTE | 2020-02-15 08:09 | P.HP_ITS ---
Same Day Surgery H&P Indication for Procedure/HPI DATE OF PROCEDURE: February 15, 2020 CHIEF COMPLAINT/INDICATIONFOR SURGICAL PROCEDURE: colon polyps PREOP DIAGNOSIS: Cecal polyp PLANNED PROCEDRUE: Operation Date: 02/15/20 09:25 Proposed Procedures p Colonoscopy 86642 D64.9(Not Applicable) - Santhosh Dozier MD Medications/Allergies* Home Medications Medication Instructions Recorded Confirmed Type albuterol sulfate 0.63 mg/3 mL 0.63 mg INHALATION QID PRN 09/27/19 02/11/20 History solution for nebulization atorvastatin 40 mg tablet 40 mg PO ONCE 09/27/19 02/11/20 History clindamycin phosphate 1 % topical 1 applic TOPICAL ONCE PRN 09/27/19 02/11/20 History gel, once daily clopidogrel 75 mg tablet 75 mg PO ONCE 09/27/19 02/11/20 History ferrous sulfate 325 mg (65 mg 325 mg PO ONCE tab 09/27/19 02/11/20 History iron) tablet fluticasone propionate 50 1 spray INTRANASAL BID PRN 09/27/19 02/11/20 History mcg/actuation nasal spray,suspension hydrocodone 5 mg-acetaminophen 325 1 tab PO BID PRN 09/27/19 02/11/20 History mg tablet levothyroxine 100 mcg capsule 100 mcg PO ONCE 09/27/19 02/11/20 History lorazepam 0.5 mg tablet 0.5 mg PO TID PRN 09/27/19 02/11/20 History magnesium 250 mg tablet 250 mg PO ONCE 09/27/19 02/11/20 History melatonin 1 mg tablet 1 mg PO ONCE 09/27/19 02/11/20 History morphine 15 mg immediate release 15 mg PO BID PRN 09/27/19 02/11/20 History tablet nitroglycerin 0.4 mg sublingual 0.4 mg SUBLINGUAL Q5M PRN 09/27/19 02/11/20 History tablet potassium chloride 10 mEq 10 meq PO ONCE tab 09/27/19 02/11/20 History tablet,extended release prochlorperazine maleate 10 mg 10 mg PO BID PRN 09/27/19 02/11/20 History tablet albuterol sulfate 90 mcg/actuation 90 mcg INHALATION Q6H PRN 01/26/20 02/11/20 History breath activated powder inhaler,sensor diphenhydramine HCl [Benadryl] 25 mg PO BEDTIME 02/11/20 02/11/20 History Allergies/Adverse Reactions Allergy/AdvReac Type Severity Reaction Status Date / Time No Known Allergies Allergy Verified 01/26/20 11:46 Pertinent History/Comorbid Conditions* Medical History (Updated 09/30/19 @ 17:22 by Adriel Banerjee MD) Anemia Carotid stenosis CHD (coronary heart disease) COPD (chronic obstructive pulmonary disease) Dyslipidemia Hypertension Lung cancer Port-A-Cath in place 02/07/14 PVD (peripheral vascular disease) Femoral-popliteal bypass grafting found to be occluded in July 2013. Bilateral iliac stents. SFA on the left is occluded. I believe his bypass surgery was on the left as well. SOBOE (shortness of breath on exertion) Tobacco abuse, in remission Surgical History (Updated 09/30/19 @ 17:22 by Adriel Banerjee MD) H/O circumcision H/O shoulder surgery right shoulder shrapnel removed History of biopsy thyroid 11/26/13 History of esophagogastroduodenoscopy (EGD) Normal History of femoropopliteal bypass right 2011 History of lung biopsy 12/20/[address] Kameron Rojo 2011 left internal mammary to the LAD and a sequential graft to the first obtuse marginal branch then to the posterior descending artery. Status post colonoscopy with polypectomy Cecum: 2.5 cm polyp which is removed piecemeal with cold biopsy forceps Pathology: Tubular adenoma with high-grade dysplasia Family History (Updated 09/30/19 @ 15:12 by Salima Tovar RN) Myocardial infarction Father Stroke Mother Social History Smoking and tobacco status: former smoker Quit status (tobacco): has quit using tobacco Year quit tobacco: 2007 - 2PPD x 40 Years Alcohol intake: current Alcohol intake frequency: holidays/special occasions only Lives independently: Yes Household members: spouse Marital status: service: Yes status details: 7 YEARS Current occupational status: retired History of recent travel: No Current gender identity: Male Roula/Jehovah'S Witness: [employer] Pertinent Exam Findings alert, oriented x 3 and regular rate & rhythm Recommendations Surgery/Procedure today Coding Level of Care Code Acute 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
[2020-02-15 08:20] VITALS: BP 156/116; RESP 18; TEMP 36; O2SAT 99
[2020-02-15 08:26] VITALS: PULSE 57
[2020-02-15] MEDS: sodium chloride 0.9% 1,000 ML 30 ML IV (08:28)
--- NOTE | 2020-02-15 08:59 | P.ANESASSM_ITS ---
Pre-Anesthetic Assessment Pre-Anesthetic Assessment: Height/Weight: Height 1.73 m Weight 73.028 kg Temp Pulse Resp BP Pulse Ox 96.8 F L 57 L 18 156/116 99 02/15/20 08:20 02/15/20 08:26 02/15/20 08:20 02/15/20 08:20 02/15/20 08:20 Preop Diagnosis: Cecal polyp Proposed Procedure: Operation Date: 02/15/20 09:25 Proposed Procedures p Colonoscopy 53550 D64.9(Not Applicable) - Santhosh Dozier MD Last intake: Intake Last Liquid Date 02/08/20 Last Liquid Time 20:00 Last Solid Date 02/15/20 Last Solid Time 20:00 Social: Social History: Tobacco (quit) and No alcohol Exam: Pre-Anes Outpt Exam: alert, oriented x 3, clear to auscultation bila terally and regular rate & rhythm Airway: Submandibular: WNL Cervical ROM: WNL MP: 2 Dentition: Other (teeth ok) History/ROS: No significant history except as noted Pulmonary: Pulmonary: COPD and CONTE CV/HEM: CV/HEM: Anemia, CAD, CHF, HTN and [place] : : None reported Hepatic: Hepatic: None reported GI: GI: None reported Metabolic: Metabolic: Hyperlipidemia and Thyroid Musc/skel: Musc/skel: OA/DJD Neuropsych: Neuropsych: None reported Anesthetic Plan: ASA status: 3 Anesthesia: Anesthesia Evaluation and MAC Risk of > 500 ml blood loss (7ml/kg in children): No Meds/Allergies Current Medications: Current Medications Generic Name Dose Route Start Last Admin Trade Name Freq PRN Reason Stop Dose Admin Sodium Chloride 1,000 mls @ 30 ml s/hr 02/15/20 08:15 02/15/20 08:28 Sodium Chloride 0.9% IV 02/16/20 08:14 30 mls/hr .Q24H SUE Administration PFSH Anesthesia PFSH: Medical History Anemia Carotid stenosis CHD (coronary heart disease) COPD (chronic obstructive pulmonary disease) Dyslipidemia Hypertension Lung cancer Port-A-Cath in place 02/07/14 PVD (peripheral vascular disease) Femoral-popliteal bypass grafting found to be occluded in July 2013. Bilateral iliac stents. SFA on the left is occluded. I believe his bypass surgery was on the left as well. SOBOE (shortness of breath on exertion) Tobacco abuse, in remission Surgical History H/O circumcision H/O shoulder surgery right shoulder shrapnel removed History of biopsy thyroid 11/26/13 History of esophagogastroduodenoscopy (EGD) Normal History of femoropopliteal bypass right 2012 History of lung biopsy 12/20/[address] Kameron Rojo 2011 left internal mammary to the LAD and a sequential graft to the first obtuse marginal branch then to the posterior descending artery. Status post colonoscopy with polypectomy Cecum: 2.5 cm polyp which is removed piecemeal with cold biopsy forceps Pathology: Tubular adenoma with high-grade dysplasia Family History Father Myocardial infarction Mother Stroke Social History Smoking and tobacco status: former smoker Quit status (tobacco): has quit using tobacco Year quit tobacco: 2007 - 2PPD x 40 Years Alcohol intake: current Alcohol intake frequency: holidays/special occasions on ly Lives independently: Yes Household members: spouse Marital status: service: Yes status details: 7 YEARS Current occupational status: retired History of recent travel: No Current gender identity: Male Roula/Voodoo: Sabianism Data Anesthesia Cardiac Studies: No Data to Display
[2020-02-15 09:46] VITALS: BP 94/61; PULSE 61; RESP 18; TEMP 36.1; O2SAT 90
[2020-02-15 10:16] VITALS: BP 110/64; PULSE 58; RESP 18; O2SAT 91
== END 2020-02-15 10:17 | disposition home or self-care (01) ==
PROVIDERS: Visit Provider Surgery
PROC: 0DJD8ZZ Inspection of Lower Intestinal Tract, Via Natural or Artificial Opening Endoscopic (ICD-10-PCS; CPT 45378; principal; 2020-02-15 09:20)
DX: K57.30 Diverticulosis of large intestine without perforation or abscess without bleeding (principal); K64.8 Other hemorrhoids; Z86.010 Personal history of colon polyps; J44.9 Chronic obstructive pulmonary disease, unspecified; I25.10 Atherosclerotic heart disease of native coronary artery without angina pectoris; I25.2 Old myocardial infarction; I11.0 Hypertensive heart disease with heart failure; I50.9 Heart failure, unspecified; E78.5 Hyperlipidemia, unspecified
CPT/HCPCS: 12345; 45378; J2704; J7030

== ENCOUNTER 2020-03-13 10:29 | Outpatient (CLI) | payer MEDICARE, OTHER, SELFPAY ==
[2020-03-13 11:16] LABS: INR 1.67 (0.8-1.2)
== END 2020-03-13 10:30 | disposition home or self-care (01) ==
LOC: ONCMED 10:35
PROVIDERS: Visit Provider Internal Medicine Medical Oncology
DX: C77.1 Secondary and unspecified malignant neoplasm of intrathoracic lymph nodes (principal); C78.02 Secondary malignant neoplasm of left lung; C78.7 Secondary malignant neoplasm of liver and intrahepatic bile duct; C80.1 Malignant (primary) neoplasm, unspecified; Z92.21 Personal history of antineoplastic chemotherapy; Z92.3 Personal history of irradiation; Z45.2 Encounter for adjustment and management of vascular access device; Z95.1 Presence of aortocoronary bypass graft
CPT/HCPCS: 36591; 85610

== ENCOUNTER 2020-03-20 11:00 | Outpatient (CLI) | payer MEDICARE, OTHER, SELFPAY | END 2020-03-20 11:01 | disposition home or self-care (01) | LOC: SLEEP 03-23 09:27 | PROVIDERS: Visit Provider Internal Medicine Critical Care Medicine | DX: J44.9 Chronic obstructive pulmonary disease, unspecified (principal) | CPT/HCPCS: 94762 ==

== ENCOUNTER 2020-03-22 13:31 | Outpatient (CLI) | payer MEDICARE, OTHER, SELFPAY ==
--- NOTE | 2020-03-22 09:44 | PFTS_ITS ---
Date of Study:03/22/20 Date of Dictation: MECHANICS: Forced vital capacity (FVC) is reduced reduced. Forced expiratory volume in one second (FEV1) is . FEV1/FVC is reduced. FLOW VOLUME LOOP: Reduced flow at all lung volumes with significant scooping. LUNG VOLUMES: Total lung capacity (TLC) is normal. Residual volume (RV) is increased. DIFFUSING CAPACITY FOR CARBON MONOXIDE: Moderately reduced. INTERPRETATION: The pulmonary function tests are consistent with severe obstruction. There is significant postbronchodilator response. Lung volumes are consistent with air trapping. Gas exchange (DLCO) is moderately reduced. MTDD
[2020-03-22 14:57] VITALS: O2SAT 94; O2SAT 96
== END 2020-03-22 13:32 | disposition home or self-care (01) ==
PROVIDERS: Visit Provider Internal Medicine Critical Care Medicine
DX: J44.9 Chronic obstructive pulmonary disease, unspecified (principal)
CPT/HCPCS: 94060; 94726; 94729; J7611

== ENCOUNTER 2020-03-28 09:43 | Outpatient (CLI) | payer MEDICARE, OTHER, SELFPAY ==
[2020-03-28 10:33] LABS: INR 1.07 (0.8-1.2)
== END 2020-03-28 09:44 | disposition home or self-care (01) ==
LOC: ONCMED 09:47
PROVIDERS: Visit Provider Internal Medicine Medical Oncology
DX: C78.7 Secondary malignant neoplasm of liver and intrahepatic bile duct (principal); C78.02 Secondary malignant neoplasm of left lung; C77.1 Secondary and unspecified malignant neoplasm of intrathoracic lymph nodes; J44.9 Chronic obstructive pulmonary disease, unspecified; I25.10 Atherosclerotic heart disease of native coronary artery without angina pectoris; I10 Essential (primary) hypertension; I73.9 Peripheral vascular disease, unspecified; Z92.21 Personal history of antineoplastic chemotherapy; Z92.3 Personal history of irradiation
CPT/HCPCS: 36591; 85610

== ENCOUNTER 2020-04-12 09:31 | Outpatient (CLI) | payer MEDICARE, OTHER, SELFPAY ==
[2020-04-12 10:11] LABS: Basophils % 0.7 %; Eosinophils # 0.1 10^3/uL (0.0-0.8); Eosinophils % 1.7 %; Hematocrit 42.2 % (42.0-52.0); Hemoglobin 13.6 g/dL (11.7-16.6); Lymphocytes # 0.8 10^3/uL (0.8-4.8); Mean Corpuscular HGB Conc 32.2 g/dL (30.0-36.0); Mean Corpuscular Hemoglobin 29.1 pg (28.0-34.0); Mean Corpuscular Volume 90.2 fL (80-94); Mean Platelet Volume 10.5 fL (7.4-10.4); Monocytes # 0.5 10^3/uL (0.2-0.9); Monocytes % 8.9 %; Neutrophils % 75.5 %; Nucleated Red Blood Cells % 0 %; Platelet Count 209 10^3/cmm (130-400); Red Blood Count 4.68 10^6/uL (4.1-5.3); Red Cell Distribution Width 14.6 % (12.1-15.1); White Blood Count 5.8 10^3/uL (4.0-10.0)
[2020-04-12 10:19] LABS: INR 0.97 (0.8-1.2)
[2020-04-12 10:34] LABS: Alanine Aminotransferase 22 U/L (0-41); Albumin Level 3.7 g/dL (3.5-5.2); Alkaline Phosphatase 120 IU/L (40-130); Anion Gap 14.5 (5-19); Aspartate Amino Transferase 23 U/L (0-40); Blood Urea Nitrogen 19 mg/dL (8-23); Calcium 8.6 mg/dL (8.5-10.5); Carbon Dioxide 25 mmol/L (22-29); Chloride 105 mmol/L (98-107); Ferritin 44 ng/mL (30-400); Globulin 3.3 g/dL (1.3-4.6); Glucose 90 mg/dL (65-115); Iron 69 ug/dL (59-158); Osmolality Calculated 288 mOsm/kg (285-295); Percent Saturation 33.9 % (20-50); Potassium 3.5 mmol/L (3.5-5.1); Sodium 141 mmol/L (136-145); Total Bilirubin 0.7 mg/dL (0.15-1.2); Total Iron Binding Capacity 203 mcg/dl; Unsaturated Iron Binding 134 ug/dL (112-347)
--- NOTE | 2020-04-13 07:20 | ONC FU_ITS ---
Dr. Lee Patient Follow-Up Note Patient: Tru Quarles Unit #: [id number]: 1945 Dicatated By: Juan Lee M.D.Date of Visit:Apr 12, 2020 Onc Med Follow-up/Prog Note Chief Complaint: Metastatic squamous cell cancer. 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 He presented with several months of chest discomfort and dyspnea, without hemoptysis. He also had progressive dysphagia. Chest x-ray on 10/18/2013 showed bilateral pulmonary nodules. CT of the chest, abdomen, and pelvis on 11/12/2013 revealed numerous pulmonary nodules bilaterally, with a large 4.9 cm mass in the right thoracic inlet, located in the expected location of the thyroid gland, causing deviation of the trachea to the left. There was mediastinal and hilar adenopathy, a 1.3 cm liver lesion, and a mild thickening of the distal esophagus. An FNA of thyroid mass on 11/26/2013 was nondiagnostic. On 12/20/2013 his flexible bronchoscopy showed a left lower lobe extrinsic bronchial compression with thick secretions. Mediastinoscopy recovered left level III and anterior level I lymph nodes. Biopsy revealed metastatic squamous cell carcinoma, positive for CK5, desmoglein and p-63, and negative for TTF-1 and napsin A. P16 was negative. He was first seen by Dr. Parra on 12/29/2013. His PET/CT on 12/31/2013 was inadequate; liver lesions could not be evaluated further due to extravasation of the contrast in the left arm. MRI of the brain was negative for metastatic disease. His endoscopy showed no tumor in the head and neck or esophagus. The patient completed 3500 cGy of palliative radiation treatment to the neck. He was able to receive only 2 weekly doses of carboplatin with AUC of 2, complicated significant radiation induced esophagitis. Systemic chemotherapy with carboplatin AUC of 5 and Abraxane was initiated on 01/31/2014. It was complicated with significant hematological toxicities with ANC dionna at 300, hemoglobin 8.4 g/dL; and acute shingles in the right neck, shoulder region. Restaging PET/CT after 6 cycles of treatment on 06/18/2014 showed a very good partial response to the treatment, with residual FDG negative pulmonary nodules down to only 1 cm. He had no lesions in the liver. Maintenance therapy with Tarceva 150 mg daily began on 07/11/2014. Restaging CT of the chest on 09/29/2014 showed ongoing positive response to the treatment. After 9 cycles of Tarceva a restaging CT of the chest, abdomen, and pelvis on 03/29/15 showed significant progression of disease in the liver. Second line nivolumab began on 04/04/2015, complicated with thyroiditis and decreasing requirement of synthroid. Restaging CT after 7 cycles of nivolumab on 06/27/2015 showed significant progression of disease in the liver as well as lung and mediastinum. His treatment was switched back to carboplatin and Abraxane, as he had a good clinical response with that regimen. Cycle 1 was delivered on 06/29/2015. His treatment was complicated with asthenia and neutropenia, requiring dose reduction. Cycle 3 also required Neulasta prophylaxis. Restaging CT of the abdomen and pelvis on 09/19/2015, after 4 cycles of carboplatin and Abraxane, showed almost total resolution of the liver metastases and decrease in subcarinal adenopathy. 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 As he had a very good response to the treatment, carboplatin was stopped, and he continued treatment with Abraxane alone. Due to hematological toxicities he was able to tolerate only 2 out of [address] His [address] of the chest, abdomen, and pelvis on 12/26/2015 showed unchanged small bilateral pulmonary nodules, but further decrease in the liver mass. Abraxane was continued, and another staging CT of the chest, abdomen, and pelvis on 03/11/2016 showed stable disease, without progression. He continued on Abraxane day 1 & 8 schedule every 3 weeks. He began cycle 14 chemotherapy with single agent Abraxane on 05/02/2016. At that point the treatment was changed to a day 1/day 15 schedule with Neulasta prophylaxis. His day 15 Abraxane was held because of worsening neuropathy and continued gradual performance status decline. He tried increasing his gabapentin to a TID schedule to help the neuropathy symptoms, but it made him crazy , and he went back to twice a day schedule. Restaging CT scan of the chest, abdomen, and pelvis was performed on 05/16/16. Multiple small scattered pulmonary nodules were again noted. There was a nonspecific 19 mm lesion within the liver, directly adjacent to the intrahepatic IVC, not significantly changed from the prior exam. There was a nonspecific 7 mm left adrenal nodule noted. Overall, there was no apparent disease progression. On his follow-up visit in June 2016 he was showing decline in performance status, and with the CT scans showing stable disease, I did opt to put his chemotherapy on hold and just monitor him with observation/expectant management. Repeat CT scans of the chest, abdomen, and pelvis on09/02/2016 showed stable treated and scarred previous pulmonary metastatic nodules. There was no evidence of disease progression. There was stable right superior paratracheal or right lobe thyroid region soft tissue thickening and there was no evidence of a neoplastic process in the abdomen or pelvis. CT scans of the chest, abdomen, and pelvis on 11/29/16 showed no evidence of recurrent or disease progression in the chest. There was stable appearance of multiple bilateral pulmonary nodular foci. There was continued mid- lower third esophageal circumferential wall thickening. There was no evidence of disease progression in the abdomen/pelvis. The hepatic lobe subcapsular lesion was unchanged. There was evidence of right femoral popliteal bypass graft occlusion, but unchanged from previous studies. His restaging CT scans on 06/16/2017 showed no evidence for recurrent or metastatic disease. The liver showed a stable hypodense lesion adjacent to the IVC measuring 1.[address] scans on 09/01/2017 showed no evidence for recurrent metastatic disease throughout the chest, abdomen, and pelvis. Multilobar pulmonary nodules and interstitial thickening appeared stable compared to previous studies. A nodule in the right lobe of the liver appeared stable, possibly representing hemangioma. Diffuse esophageal thickening also appeared unchanged. CT scans of the chest on 12/08/2017 and on 02/24/2018 showed no evidence of recurrent or progressive disease. CT scans of the chest, abdomen, and pelvis on 06/01/2018 showed stable appearance of the chest with bilateral upper and lower lobe nodular scarring, right apical subpleural scarring, and right superior paratracheal soft tissue thickening. There was stable distal third esophageal wall thickening. There was no evidence of a neoplastic process of the abdomen or pelvis. A circumscribed 1.8 cm oval-shaped low-density nodule in the caudate lobe of the liver appeared stable. It was thought to perhaps have peripheral nodular enhancement suggestive of benign cavernous hemangioma. He continued observation/expectant management. His other medical illnesses include hypertension, coronary artery disease, peripheral arterial disease, and COPD. He underwent coronary artery bypass in November 2011 and he underwent femoropopliteal bypass in March 2012. He had a subsequent redo right femoropopliteal bypass, following which he has remained chronically anticoagulated with warfarin. He apparently also has had a mitral valve replacement. He had previously smoked a pack and half of cigarettes daily for 40 years. He quit smoking more than 8 years ago. INTERIM HISTORY: In early August 2018 his had called and reported a significant change in his condition with increased weakness/fatigue and new confusion. MRI of the brain on 09/09/2018 showed evidence of recent right basal ganglia infarct. There was no evidence of metastatic disease. Restaging PET/CT on 09/12/2018 showed tiny subpleural nodules measuring less than 4 mm. There was no evidence of active malignancy. Restaging CT scans on 04/16/2019 showed stable bilateral upper and lower lobe subpleural nodular densities and parenchymal scarring, right apical subpleural scarring, and right superior paratracheal soft tissue thickening. There was severe chronic emphysema. Overall, there was no evidence of disease progression in the chest and no evidence of a neoplastic process of the abdomen or pelvis. A left adrenal nodule appeared stable and there was no liver lesion identified. Repeat head MRI on 04/27/2019 showed no evidence of metastatic disease to the brain. There was evidence of remote left cerebellar and right basal ganglia infarcts and there are mild to moderate chronic microvascular ischemic changes noted. As of his follow-up visit on 07/14/2019 there had been no evidence of recurrence/progression of the lung cancer. However, at that point he had become mildly anemic, and his serum iron studies were consistent with iron deficiency. He was started on an oral iron supplement. He was subsequently found to have a positive stool IFOB. With that finding he was referred to Dr. Dozier. On 08/30/2019 he underwent EGD and colonoscopy. There were no abnormal findings on the EGD. The colonoscopy showed a 2.5 cm sessile polyp in the cecum and a 7 mm sessile polyp at the hepatic flexure in the ascending colon. The ascending colon lesion was completely removed, but the cecal lesion was large enough that it had to be removed in piecemeal. Pathology on the hepatic flexure lesion showed tubular adenoma with low-grade dysplasia. The cecal lesion also showed tubular adenoma but with focal high-grade dysplasia arising in a background of low-grade dysplasia. There was no invasive malignancy identified. There was a focus of high-grade dysplasia extending to an edge of the resection. During subsequent followup there was a further drop in the hemoglobin. As of 09/13/2019 it was down to 7.9 g, and at that point he was given a transfusion of 2 units PRBC. As of his follow-up visit on 10/14/2019 his hemoglobin was back up to 12.4 g, but his serum iron studies and ferritin were still consistent with iron deficiency. He was still having significant fatigue, and he continued to complain of shortness of breath. CT pulmonary angiogram at that time showed no evidence of pulmonary embolus. There were advanced chronic emphysematous changes, but there is no acute pulmonary infiltrate. Small subpleural opacities and parenchymal scarring appeared stable, as did soft tissue thickening in the right paratracheal area. A 7 mm adrenal nodule also appeared stable. During that time he also was seen by Dr. Banerjee and his subsequent cardiac evaluation with echocardiogram and stress test were unrevealing. He continued on observation/expectant management for the squamous cell cancer. He is seen for a follow-up visit. He has not been feeling all that good. His energy is so-so, not great. He has limited activity. ECOG score is 2. His appetite is good. He has not had fever. He sometimes has sweating at night. He is short of breath with activity. He only rarely has cough. He does not complain of chest pain. He has no GI or complaints. He has no significant joint or bone pain. He does not complain of headache. He sometimes has dizziness. He has had ongoing complaint of numbness/tingling in his hands and feet since his chemotherapy. Medications: Ativan 1 (0.5 mg) Tablet Oral PRN, Atorvastatin Calcium 1 Tablet (of 40 mg) Oral at bedtime, apr betamet 1 (0.05 %) Cream daily PRN, Clindamycin HCl 1 APL (of 1 %) Gel (jelly) Oral PRN, Clopidogrel Bisulfate 1 (75 mg) Tablet Oral daily, Coumadin (5 mg) Tablet Oral Take as Directed, Flonase Allergy Relief 1 [facility]) (of 50 mcg/act) Suspension Nasal daily PRN, Hydrocodone-Acetaminophen 1 - 2 Tablet (of 5-325 mg) Oral q 4 hours, Hydrocortisone 1 (2.5 %) Cream Topical PRN, Iron 1 Tablet (of 325 (65 fe) mg) Oral midday, Ketoconazole 1 APL (of 2 %) Cream Topical PRN, Klor-Con 10 1 (10 meq) Tablet, controlled release Oral daily, levoFLOXacin 1 Tablet (of 500 mg) Oral PRN, Levothroid 1 Tablet (of 100 mcg) Oral daily, Lidocaine-Prilocaine 1 APL (of 2.5-2.5 %) Cream Topical PRN, Magnesium 1 Tablet (of 250 mg) Oral daily, Melatonin 1 Capsule Oral at bedtime, Metoprolol Tartrate 0.5 Tablet (of 25 mg) Oral daily, Montelukast Sodium 1 Tablet (of 10 mg) Oral daily, Morphine Sulfate 1 - 2 Tablet (of 15 mg) Oral q 2 to 4 hours PRN, Morphine Sulfate Solution Oral PRN, Prochlorperazine Maleate 1 Tablet (of 10 mg) Oral q 4 hours PRN Allergies: ChloraPrep One Step Review of Systems: Constitutional - His energy has not been great. He is not doing much at home related to getting fatigued with activity. His appetite is good and weight is up a few pounds. No fevers. He has been having occasional night sweats. ECOG score is 2, ENMT - He has a persistent sinus drainage. No mouth sores. No sore throat or difficulty swallowing, Hematologic/Lymphatic - He bruises easily, Respiratory - He gets short of breath with exertion. No cough. No pleuritic pain or hemoptysis, Cardiovascular - No angina pain. No palpitations, Gastrointestinal - No nausea or vomiting. No heartburn or acid reflux. No diarrhea or constipation. No blood in the stool or black stools, Genitourinary (M) - No dysuria or hematuria. No urinary frequency. No urgency or incontinence, Musculoskeletal - No joint or bone pain, Integumentary - No skin complications, Neurologic - No headache. He has occasional dizziness. He has numbness and tingling in his hands and feet. No other focal neurologic symptoms, Psychiatric - No anxiety or depression. No insomnia. Vital Signs: Performed on Apr 12, 2020 10:48 Height - 68.00 in Weight - 164.6 lbs (HIGH) BSA - 1.88 sq.m BMI - 25.03 Temperature - 97.2 F (LOW) Pulse - 79 /min Respiration - 24 /min BP - 153/73 mm(hg) (HIGH) O2 Sat - 97 % Pain - 0 Physical Examination: Constitutional - He looks pretty good generally, though he does appear short of breath with effort, Eyes - Sclerae nonicteric. Conjunctivae clear, ENMT - No lesions noted in the oral cavity, Hematologic/Lymphatic - No cervical, clavicular, or axillary adenopathy, Respiratory - Lungs are clear with diminished air movement bilaterally, Cardiovascular - Heart rhythm appears regular. There is a II/ systolic murmur. There is no gallop or rub noted, Abdomen - Soft. Liver and spleen are not enlarged. There is no abdominal mass or ascites noted and there is no inguinal adenopathy, Extremities - No edema, Neurologic - There are no focal neurologic deficits noted. Lab/Imaging: Test performed on Apr 12, 2020 09:50 Ferritin 44 ng/mL Iron 69 mcg/dL Sodium 141 mmol/L Iron Binding Capacity (TIBC) 203 mcg/dl Potassium 3.5 mmol/L % Iron Saturation 33.9 % Chloride 105 mmol/L CO2 25 mmol/L UIBC 134 mcg/dL Anion Gap 14.5 BUN 19 mg/dL Creatinine 1.1 mg/dL Cr Clearance (Est) 60.8600 mL/min Glucose 90 mg/dL Calcium 8.6 mg/dL Protein, Total 7.0 g/dL Albumin 3.7 g/dL Globulin 3.3 g/dL Bilirubin, Total 0.7 mg/dL ALT (SGPT) 22 U/L AST (SGOT) 23 U/L Alkaline Phosphatase 120 IU/L PT 13.20 SECONDS WBC 5.8 10 3/uL INR 0.97 RBC 4.68 10 6/uL HGB 13.6 g/dL HCT 42.2 % MCV 90.2 fL MCH 29.1 pg MCHC 32.2 g/dL RDW 14.6 % Platelet Count 209 10 3/cmm MPV 10.5 fL Neutrophils 4.40 10 3/uL Lymphocytes 0.8 10 3/uL Monocytes 0.5 10 3/uL Eosinophils 0.1 10 3/uL Basophils 0.0 10 3/uL Neutrophil % 75.5 % Lymphocyte % 13.0 % Monocyte % 8.9 % Eosinophil % 1.7 % Basophils % 0.7 % NRBC % 0 % Impression: 1. Patient has metastatic squamous cell carcinoma of unknown primary, but with clinical evidence of lung cancer. He had a large right-sided mass confluent with the thyroid gland, mediastinal adenopathy, bilateral lung nodules, and a liver lesion at initial presentation in September 2013. 2. He completed 35 noemi of radiation to the large mass at the level of the thoracic inlet. He was able to receive 2 weeks of carboplatin AUC of 2 with radiation. 3. Systemic chemotherapy with carboplatin AUC of 5 and Abraxane given from January 2014 to May 2014. Restaging imaging with PET/CT after 6 cycles of chemotherapy with a very good partial response. 4. Maintenance therapy Tarceva at 150 mg daily began on 07/11/14 based on SATURN trial. After 9 months of maintenance therapy he had progression of disease in liver. 5. Second line treatment with Nivolumab 3 mg/kg every 2 weeks began on 04/04/15. Unfortunately repeat CT of the chest abdomen/pelvis on 06/27/2015 after 3 months of treatment showed significant progression of disease in the liver lung and mediastinum. 6. He restarted systemic chemotherapy with carboplatin/Abraxane on 06/29/15. Restaging CT of the chest abdomen and pelvis on 09/19/2015 showed almost complete resolution of the liver metastases and decrease in subcarinal lymphadenopathy. Despite dose reductions, his treatment was complicated by progressive cytopenias, and at that point he continued treatment with Abraxane alone. 7. As of his followup visit in June 2016 he had completed 14 cycles of chemotherapy. Restaging CT scans had shown no obvious disease progression. He was having increasing fatigue and neuropathy symptoms, and at that point I had stopped his chemotherapy and began following him with observation/expectant management. His other medical illnesses include: 8. Hypertension. 9. Coronary artery disease. 10. Peripheral arterial disease. 11. COPD. 12. Hypothyroidism. He had significant improvement in his performance status after stopping chemotherapy. During subsequent follow-up he had remained stable clinically. In August 2018 he experienced a decline in his clinical status with increased weakness/fatigue and confusion. Brain MRI on 09/09/2018 showed no evidence of metastatic disease. There was, however, evidence of a recent right basal ganglia infarct despite the fact that he had been on anticoagulation with warfarin and Plavix. Restaging PET/CT on 09/12/2018 showed tiny subpleural pulmonary nodules measuring less than 4 mm. There was no evidence of active malignancy. At that point he continued on observation/symptomatic management. He then continued to complain of having a lightheaded/foggy feeling, and there was further decline in his performance status. As of March [address] scans showed no evidence of disease progression in the chest and no evidence of a neoplastic process of the abdomen or pelvis. His repeat brain MRI in April 2019 showed evidence of remote left cerebellar and right basal ganglia infarcts, but no evidence of metastatic involvement. During followup his [employer] symptoms persisted. As of his visit on 07/14/2019 he had also become mildly anemic. His serum iron studies were consistent with iron deficiency, and he was subsequently confirmed to have a positive stool IFOB. He was referred to Dr. Dozier. His colonoscopy on 08/30/2019 showed sessile polyps in the cecum and in the ascending colon at the hepatic flexure. The hepatic flexure lesion was a tubular polyp with low-grade dysplasia, and it was completely removed. The cecal lesion was also a tubular adenoma but with focal high-grade dysplasia. It was large enough that it had to be removed piecemeal, and there was noted to be high-grade dysplasia at the edge of the specimen. As of 09/13/2019 his anemia worsened to the point that he required a transfusion of 2 units of PRBC. At that time he complained of increased shortness of breath. CT pulmonary angiogram showed no evidence of pulmonary emboli or other acute findings. There was no obvious recurrence/progression of the lung cancer. He also underwent cardiac evaluation with Dr. Banerjee, and his echocardiogram and stress test were unrevealing. His hemoglobin had subsequently remained adequate. During follow-up he is continued to have some fatigue and shortness of breath. His blood counts remain adequate. His pro time for some reason has become subtherapeutic. Overall, though, he is still doing pretty well clinically with no evidence for further recurrence/progression of the squamous cell cancer. Plan: He is given instructions for increasing his warfarin dosage over the weekend, and his pro time will be rechecked on Friday. He is advised now to go ahead and stop his iron supplement. He will be scheduled for a follow-up visit in 3 months. In the meantime, I also will schedule a restaging chest CT, as it has been 6 months since his last study. Signed By: Juan Lee M.D. <<Signature on File>>
== END 2020-04-12 09:32 | disposition home or self-care (01) ==
LOC: ONCMED 09:36
PROVIDERS: PCP Family Medicine; Visit Provider Internal Medicine Medical Oncology
DX: Z08 Encounter for follow-up examination after completed treatment for malignant neoplasm (principal); Z85.118 Personal history of other malignant neoplasm of bronchus and lung; Z79.01 Long term (current) use of anticoagulants; D50.9 Iron deficiency anemia, unspecified; I10 Essential (primary) hypertension; I25.10 Atherosclerotic heart disease of native coronary artery without angina pectoris; I73.9 Peripheral vascular disease, unspecified; J44.9 Chronic obstructive pulmonary disease, unspecified; E03.9 Hypothyroidism, unspecified; Z92.21 Personal history of antineoplastic chemotherapy; Z86.73 Personal history of transient ischemic attack (TIA), and cerebral infarction without residual deficits; Z86.010 Personal history of colon polyps
CPT/HCPCS: 36591; 80053; 82728; 83540; 83550; 85025; 85610; 99214

== ENCOUNTER 2020-04-17 12:56 | Outpatient (CLI) | payer MEDICARE, OTHER, SELFPAY ==
[2020-04-17 14:19] LABS: Alanine Aminotransferase 34 U/L (0-41); Albumin Level 4.1 g/dL (3.5-5.2); Alkaline Phosphatase 113 IU/L (40-130); Aspartate Amino Transferase 27 U/L (0-40); Blood Urea Nitrogen 26 mg/dL (8-23); Calcium 9.4 mg/dL (8.5-10.5); Carbon Dioxide 26 mmol/L (22-29); Chloride 103 mmol/L (98-107); Chol HDL Ratio 4.97 mg/dL (1.0-5.00); Cholesterol 184 mg/dL (0-200); Globulin 2.8 g/dL (1.3-4.6); Glucose 86 mg/dL (65-115); HDL Cholesterol 37 mg/dL (60-100); LDL Cholesterol Calculated 87 mg/dL (50-129); LDL HDL Ratio 2.35 RATIO (0.00-3.22); Osmolality Calculated 284 mOsm/kg (285-295); Sodium 139 mmol/L (136-145); Thyroid Stimulating Hormone 4.51 uIU/mL (0.27-4.20); Total Bilirubin 0.5 mg/dL (0.15-1.2); Total Protein 6.9 g/dL (6.6-8.7); Triglycerides 300 mg/dL (0-150)
== END 2020-04-17 12:57 | disposition home or self-care (01) ==
PROVIDERS: PCP Family Medicine; Visit Provider Nurse Practitioner
DX: Z51.81 Encounter for therapeutic drug level monitoring (principal); Z79.01 Long term (current) use of anticoagulants; E03.9 Hypothyroidism, unspecified; E78.5 Hyperlipidemia, unspecified
CPT/HCPCS: 36591; 80053; 80061; 84443; 85610

== ENCOUNTER 2020-04-19 13:01 | Outpatient (CLI) | payer MEDICARE, OTHER, SELFPAY ==
--- NOTE | 2020-04-19 13:12 | CT_ITS ---
WS: [id number] CT CHEST WITH INTRAVENOUS CONTRAST HISTORY: LUNG CANCER TECHNIQUE: Contiguous 5 mm axial imaging performed on the thorax. Coronal and sagittal reformats are submitted. All CT scans at [facility] use at least one of these dose optimization techniq ues: automated exposure control; mA and/or kV adjustment per patient size (includes targeted exams wh ere dose is matched to clinical indication); or iterative reconstruction. CONTRAST: Visipaque 320; 95 mL IV. DLP: 774.15 mGycm COMPARISON: 01/17/2020 and 09/13/2019 Lungs and central airway: Hyperexpanded lungs with changes of emphysema. Soft tissue thickening along the medial RIGHT upper thorax is stable. There are adjacent pleural and subpleural nodules which are stable in size. No new mass or nodules. Pleura: Normal. No pleural effusion. Heart and pericardium: Normal size heart. Prior CABG. No pericardial effusion. Mediastinum and areli: No adenopathy. Vessels: LEFT subclavian Port-A-Cath remains present. There is extensive atherosclerosis of the thora cic aorta. Extensive coronary artery calcifications. Normal size pulmonary artery. Chest wall and lower neck: Prior median sternotomy. Upper abdomen: There is circumferential moderate thickening of the mid to distal esophagus. Similar f indings were noted on prior studies. Nodule associated with the LEFT lateral adrenal limb measures 7 mm. There is mild diffuse cortical thinning involving the upper poles of each kidney. Osseous structures: Mild anterior compression fractures throughout the thoracic spine. No new fractur e or osteoblastic or osteolytic bone disease. CT/CT chest w con* [id number] IMPRESSION: 1. Chronic emphysema with stable pleural and subpleural nodules. No new or inc reasing nodule or mass. 2. No adenopathy. 3. Prior CABG. 4. Extensive atherosclerosis aorta. 5. Circumferential moderate thickening of the esophagus. May be related to eso phagitis from reflux disease. 6. Stable LEFT adrenal nodule.
[2020-04-19] MEDS: iodixanol 320 mg/mL 100mL Btl IV (13:30)
== END 2020-04-19 13:02 | disposition home or self-care (01) ==
LOC: RADWPI 13:05
PROVIDERS: Family Provider Family Medicine; PCP Family Medicine; Visit Provider Internal Medicine Medical Oncology
DX: C34.90 Malignant neoplasm of unspecified part of unspecified bronchus or lung (principal); J43.8 Other emphysema; Z95.1 Presence of aortocoronary bypass graft; I70.0 Atherosclerosis of aorta; D49.7 Neoplasm of unspecified behavior of endocrine glands and other parts of nervous system
CPT/HCPCS: 71260; Q9967

== ENCOUNTER 2020-05-15 12:47 | Outpatient (CLI) | payer MEDICARE, OTHER, SELFPAY ==
[2020-05-15 14:30] LABS: INR 1.23 (0.8-1.2)
== END 2020-05-15 12:48 | disposition home or self-care (01) ==
LOC: ONCMED 12:50
PROVIDERS: PCP Family Medicine; Visit Provider Internal Medicine Medical Oncology
DX: Z79.01 Long term (current) use of anticoagulants (principal)
CPT/HCPCS: 36591; 85610

== ENCOUNTER 2020-05-22 06:00 | Outpatient (RCR) | payer MEDICARE, OTHER, SELFPAY | END 2021-05-22 23:59 | disposition home or self-care (01) | LOC: TPT 06:00 | PROVIDERS: PCP Family Medicine; Referring Provider Internal Medicine Critical Care Medicine; Visit Provider Internal Medicine Critical Care Medicine | DX: R53.1 Weakness (principal) | CPT/HCPCS: 85610; 97110; 97162 ==

== ENCOUNTER 2020-05-31 13:07 | Outpatient (CLI) | payer MEDICARE, OTHER, SELFPAY ==
[2020-05-31 14:03] LABS: INR 1.22 (0.8-1.2)
== END 2020-05-31 13:08 | disposition home or self-care (01) ==
PROVIDERS: PCP Family Medicine; Visit Provider Internal Medicine Medical Oncology
DX: Z51.81 Encounter for therapeutic drug level monitoring (principal); Z79.01 Long term (current) use of anticoagulants
CPT/HCPCS: 36591; 85610

== ENCOUNTER 2020-06-13 05:56 | Outpatient (CLI) | payer MEDICARE, OTHER, SELFPAY | END 2020-06-13 05:57 | disposition home or self-care (01) | LOC: ONCMED 05:58 | PROVIDERS: PCP Family Medicine; Visit Provider Internal Medicine Medical Oncology | DX: C77.1 Secondary and unspecified malignant neoplasm of intrathoracic lymph nodes (principal); C78.02 Secondary malignant neoplasm of left lung; C78.7 Secondary malignant neoplasm of liver and intrahepatic bile duct | CPT/HCPCS: 36591; 85610 ==

== ENCOUNTER → 2020-06-27 16:04 | Outpatient (BNVA) | payer MEDICARE, OTHER, SELFPAY | PROVIDERS: PCP Family Medicine; Visit Provider Internal Medicine | DX: Z11.59 Encounter for screening for other viral diseases (principal) | CPT/HCPCS: 87635 ==

== ENCOUNTER 2020-07-13 06:16 | Outpatient (CLI) | payer MEDICARE, OTHER, SELFPAY ==
[2020-07-13 11:39] LABS: INR 6.96 (0.8-1.2)
== END 2020-07-13 06:17 | disposition home or self-care (01) ==
LOC: ONCMED 06:19
PROVIDERS: PCP Family Medicine; Visit Provider Internal Medicine Medical Oncology
DX: C78.7 Secondary malignant neoplasm of liver and intrahepatic bile duct (principal); C77.1 Secondary and unspecified malignant neoplasm of intrathoracic lymph nodes; C78.02 Secondary malignant neoplasm of left lung; Z45.2 Encounter for adjustment and management of vascular access device; Z92.3 Personal history of irradiation; Z92.21 Personal history of antineoplastic chemotherapy
CPT/HCPCS: 36591; 85610

== ENCOUNTER 2020-07-17 06:27 | Outpatient (CLI) | payer MEDICARE, OTHER, SELFPAY ==
[2020-07-17 10:36] LABS: INR 1.56 (0.8-1.2)
== END 2020-07-17 06:28 | disposition home or self-care (01) ==
LOC: ONCMED 06:30
PROVIDERS: PCP Family Medicine; Visit Provider Internal Medicine Medical Oncology
DX: Z51.81 Encounter for therapeutic drug level monitoring (principal); Z79.01 Long term (current) use of anticoagulants
CPT/HCPCS: 36591; 85610

== ENCOUNTER 2020-07-24 06:29 | Outpatient (CLI) | payer MEDICARE, OTHER, SELFPAY ==
[2020-07-24 10:32] LABS: INR 4.57 (0.8-1.2)
== END 2020-07-24 06:30 | disposition home or self-care (01) ==
LOC: ONCMED 06:31
PROVIDERS: Internal Medicine Medical Oncology; PCP Family Medicine; Visit Provider Nurse Practitioner
DX: C80.1 Malignant (primary) neoplasm, unspecified (principal); C77.1 Secondary and unspecified malignant neoplasm of intrathoracic lymph nodes; C78.02 Secondary malignant neoplasm of left lung; C78.7 Secondary malignant neoplasm of liver and intrahepatic bile duct; I25.10 Atherosclerotic heart disease of native coronary artery without angina pectoris; Z95.5 Presence of coronary angioplasty implant and graft; Z92.21 Personal history of antineoplastic chemotherapy; Z92.3 Personal history of irradiation; Z45.2 Encounter for adjustment and management of vascular access device
CPT/HCPCS: 36591; 85610

== ENCOUNTER 2020-08-01 06:13 | Outpatient (CLI) | payer MEDICARE, OTHER, SELFPAY ==
[2020-08-01 13:31] LABS: Basophils # 0.1 10^3/uL (0.0-0.1); Basophils % 0.8 %; Eosinophils # 0.1 10^3/uL (0.0-0.8); Hemoglobin 13.8 g/dL (11.7-16.6); Lymphocytes # 0.9 10^3/uL (0.8-4.8); Lymphocytes % 14.3 %; Mean Corpuscular HGB Conc 32.9 g/dL (30.0-36.0); Mean Corpuscular Hemoglobin 29.4 pg (28.0-34.0); Mean Corpuscular Volume 89.6 fL (80-94); Mean Platelet Volume 10.4 fL (7.4-10.4); Monocytes # 0.6 10^3/uL (0.2-0.9); Monocytes % 9.1 %; Neutrophils # 4.66 10^3/uL (1.8-7.7); Neutrophils % 73.5 %; Nucleated Red Blood Cells % 0 %; Platelet Count 247 10^3/cmm (130-400); Red Blood Count 4.69 10^6/uL (4.1-5.3); Red Cell Distribution Width 14.1 % (12.1-15.1); White Blood Count 6.4 10^3/uL (4.0-10.0)
[2020-08-01 13:41] LABS: INR 2.56 (0.8-1.2)
[2020-08-01 13:59] LABS: Alanine Aminotransferase 26 U/L (0-41); Albumin Level 3.7 g/dL (3.5-5.2); Alkaline Phosphatase 118 IU/L (40-130); Aspartate Amino Transferase 21 U/L (0-40); Blood Urea Nitrogen 15 mg/dL (8-23); Carbon Dioxide 25 mmol/L (22-29); Chloride 105 mmol/L (98-107); Globulin 3.2 g/dL (1.3-4.6); Glucose 96 mg/dL (65-115); Iron 77 ug/dL (59-158); Osmolality Calculated 291 mOsm/kg (285-295); Sodium 140 mmol/L (136-145); Total Bilirubin 0.8 mg/dL (0.15-1.2); Total Iron Binding Capacity 220 mcg/dl; Total Protein 6.9 g/dL (6.6-8.7); Unsaturated Iron Binding 143 ug/dL (112-347)
--- NOTE | 2020-08-01 17:12 | ONC FU_ITS ---
Dr. Lee Patient Follow-Up Note Patient: Tru Quarles Unit #: [id number]: 1945 Dicatated By: Juan Lee M.D.Date of Visit:Aug 01, 2020 Onc Med Follow-up/Prog Note Chief Complaint: Metastatic squamous cell cancer. 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 He presented with several months of chest discomfort and dyspnea, without hemoptysis. He also had progressive dysphagia. Chest x-ray on 10/18/2013 showed bilateral pulmonary nodules. CT of the chest, abdomen, and pelvis on 11/12/2013 revealed numerous pulmonary nodules bilaterally, with a large 4.9 cm mass in the right thoracic inlet, located in the expected location of the thyroid gland, causing deviation of the trachea to the left. There was mediastinal and hilar adenopathy, a 1.3 cm liver lesion, and a mild thickening of the distal esophagus. An FNA of thyroid mass on 11/26/2013 was nondiagnostic. On 12/20/2013 his flexible bronchoscopy showed a left lower lobe extrinsic bronchial compression with thick secretions. Mediastinoscopy recovered left level III and anterior level I lymph nodes. Biopsy revealed metastatic squamous cell carcinoma, positive for CK5, desmoglein and p-63, and negative for TTF-1 and napsin A. P16 was negative. He was first seen by Dr. Parra on 12/29/2013. His PET/CT on 12/31/2013 was inadequate; liver lesions could not be evaluated further due to extravasation of the contrast in the left arm. MRI of the brain was negative for metastatic disease. His endoscopy showed no tumor in the head and neck or esophagus. The patient completed 3500 cGy of palliative radiation treatment to the neck. He was able to receive only 2 weekly doses of carboplatin with AUC of 2, complicated significant radiation induced esophagitis. Systemic chemotherapy with carboplatin AUC of 5 and Abraxane was initiated on 01/31/2014. It was complicated with significant hematological toxicities with ANC dionna at 300, hemoglobin 8.4 g/dL; and acute shingles in the right neck, shoulder region. Restaging PET/CT after 6 cycles of treatment on 06/18/2014 showed a very good partial response to the treatment, with residual FDG negative pulmonary nodules down to only 1 cm. He had no lesions in the liver. Maintenance therapy with Tarceva 150 mg daily began on 07/11/2014. Restaging CT of the chest on 09/29/2014 showed ongoing positive response to the treatment. After 9 cycles of Tarceva a restaging CT of the chest, abdomen, and pelvis on 03/29/15 showed significant progression of disease in the liver. Second line nivolumab began on 04/04/2015, complicated with thyroiditis and decreasing requirement of synthroid. Restaging CT after 7 cycles of nivolumab on 06/27/2015 showed significant progression of disease in the liver as well as lung and mediastinum. His treatment was switched back to carboplatin and Abraxane, as he had a good clinical response with that regimen. Cycle 1 was delivered on 06/29/2015. His treatment was complicated with asthenia and neutropenia, requiring dose reduction. Cycle 3 also required Neulasta prophylaxis. Restaging CT of the abdomen and pelvis on 09/19/2015, after 4 cycles of carboplatin and Abraxane, showed almost total resolution of the liver metastases and decrease in subcarinal adenopathy. 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 As he had a very good response to the treatment, carboplatin was stopped, and he continued treatment with Abraxane alone. Due to hematological toxicities he was able to tolerate only 2 out of [address] cycle[address] His [address] of the chest, abdomen, and pelvis on 12/26/2015 showed unchanged small bilateral pulmonary nodules, but further decrease in the liver mass. Abraxane was continued, and another staging CT of the chest, abdomen, and pelvis on 03/11/2016 showed stable disease, without progression. He continued on Abraxane day 1 & 8 schedule every 3 weeks. He began cycle 14 chemotherapy with single agent Abraxane on 05/02/2016. At that point the treatment was changed to a day 1/day 15 schedule with Neulasta prophylaxis. His day 15 Abraxane was held because of worsening neuropathy and continued gradual performance status decline. He tried increasing his gabapentin to a TID schedule to help the neuropathy symptoms, but it made him crazy , and he went back to twice a day schedule. Restaging CT scan of the chest, abdomen, and pelvis was performed on 05/16/16. Multiple small scattered pulmonary nodules were again noted. There was a nonspecific 19 mm lesion within the liver, directly adjacent to the intrahepatic IVC, not significantly changed from the prior exam. There was a nonspecific 7 mm left adrenal nodule noted. Overall, there was no apparent disease progression. On his follow-up visit in June 2016 he was showing decline in performance status, and with the CT scans showing stable disease, I did opt to put his chemotherapy on hold and just monitor him with observation/expectant management. Repeat CT scans of the chest, abdomen, and pelvis on09/02/2016 showed stable treated and scarred previous pulmonary metastatic nodules. There was no evidence of disease progression. There was stable right superior paratracheal or right lobe thyroid region soft tissue thickening and there was no evidence of a neoplastic process in the abdomen or pelvis. CT scans of the chest, abdomen, and pelvis on 11/29/16 showed no evidence of recurrent or disease progression in the chest. There was stable appearance of multiple bilateral pulmonary nodular foci. There was continued mid- lower third esophageal circumferential wall thickening. There was no evidence of disease progression in the abdomen/pelvis. The hepatic lobe subcapsular lesion was unchanged. There was evidence of right femoral popliteal bypass graft occlusion, but unchanged from previous studies. His restaging CT scans on 06/16/2017 showed no evidence for recurrent or metastatic disease. The liver showed a stable hypodense lesion adjacent to the IVC measuring 1.[address] scans on 09/01/2017 showed no evidence for recurrent metastatic disease throughout the chest, abdomen, and pelvis. Multilobar pulmonary nodules and interstitial thickening appeared stable compared to previous studies. A nodule in the right lobe of the liver appeared stable, possibly representing hemangioma. Diffuse esophageal thickening also appeared unchanged. CT scans of the chest on 12/08/2017 and on 02/24/2018 showed no evidence of recurrent or progressive disease. CT scans of the chest, abdomen, and pelvis on 06/01/2018 showed stable appearance of the chest with bilateral upper and lower lobe nodular scarring, right apical subpleural scarring, and right superior paratracheal soft tissue thickening. There was stable distal third esophageal wall thickening. There was no evidence of a neoplastic process of the abdomen or pelvis. A circumscribed 1.8 cm oval-shaped low-density nodule in the caudate lobe of the liver appeared stable. It was thought to perhaps have peripheral nodular enhancement suggestive of benign cavernous hemangioma. He continued observation/expectant management. His other medical illnesses include hypertension, coronary artery disease, peripheral arterial disease, and COPD. He underwent coronary artery bypass in November 2011 and he underwent femoropopliteal bypass in March 2012. He had a subsequent redo right femoropopliteal bypass, following which he has remained chronically anticoagulated with warfarin. He apparently also has had a mitral valve replacement. He had previously smoked a pack and half of cigarettes daily for 40 years. He quit smoking more than 8 years ago. INTERIM HISTORY: In early August 2018 his had called and reported a significant change in his condition with increased weakness/fatigue and new confusion. MRI of the brain on 09/09/2018 showed evidence of recent right basal ganglia infarct. There was no evidence of metastatic disease. Restaging PET/CT on 09/12/2018 showed tiny subpleural nodules measuring less than 4 mm. There was no evidence of active malignancy. Restaging CT scans on 04/16/2019 showed stable bilateral upper and lower lobe subpleural nodular densities and parenchymal scarring, right apical subpleural scarring, and right superior paratracheal soft tissue thickening. There was severe chronic emphysema. Overall, there was no evidence of disease progression in the chest and no evidence of a neoplastic process of the abdomen or pelvis. A left adrenal nodule appeared stable and there was no liver lesion identified. Repeat head MRI on 04/27/2019 showed no evidence of metastatic disease to the brain. There was evidence of remote left cerebellar and right basal ganglia infarcts and there are mild to moderate chronic microvascular ischemic changes noted. As of his follow-up visit on 07/14/2019 there had been no evidence of recurrence/progression of the lung cancer. However, at that point he had become mildly anemic, and his serum iron studies were consistent with iron deficiency. He was started on an oral iron supplement. He was subsequently found to have a positive stool IFOB. With that finding he was referred to Dr. Dozier. On 08/30/2019 he underwent EGD and colonoscopy. There were no abnormal findings on the EGD. The colonoscopy showed a 2.5 cm sessile polyp in the cecum and a 7 mm sessile polyp at the hepatic flexure in the ascending colon. The ascending colon lesion was completely removed, but the cecal lesion was large enough that it had to be removed in piecemeal. Pathology on the hepatic flexure lesion showed tubular adenoma with low-grade dysplasia. The cecal lesion also showed tubular adenoma but with focal high-grade dysplasia arising in a background of low-grade dysplasia. There was no invasive malignancy identified. There was a focus of high-grade dysplasia extending to an edge of the resection. As of 09/13/2019 there was further decline in his hemoglobin to 7.9 g, and at that point he was given a transfusion of 2 units PRBC. As of his follow-up visit on 10/14/2019 his hemoglobin was back up to 12.4 g, but his serum iron studies and ferritin were still consistent with iron deficiency. He was still having significant fatigue, and he continued to complain of shortness of breath. CT pulmonary angiogram at that time showed no evidence of pulmonary embolus. There were advanced chronic emphysematous changes, but there is no acute pulmonary infiltrate. Small subpleural opacities and parenchymal scarring appeared stable, as did soft tissue thickening in the right paratracheal area. A 7 mm adrenal nodule also appeared stable. During that time he also was seen by Dr. Banerjee and his subsequent cardiac evaluation with echocardiogram and stress test were unrevealing. During subsequent follow-up, he began treatment for COPD, and he was referred to Dr. Fritz for pulmonary consultation. He is seen now for a scheduled visit. During the past month or so he had issues managing his warfarin, as his pro time had initially become subtherapeutic and then with an increase in his warfarin dosage he became supratherapeutic. Reasons for this are unclear, as he was taking his medication consistently and he was not on antibiotic or other significant medication changes. He has been feeling pretty good. He does have limited activity tolerance due to shortness of breath, and he says he has to watch what he does. He has good appetite he has not had fever. He occasionally has sweating at night. He is short of breath if he overdoes it. He has just occasional cough. He does not complain of chest pain. He has no GI or complaints. He has no significant joint or bone pain. He still has numbness/tingling in his hands and feet. Medications: Albuterol 1 Aerosol, solution Inhalation q 4 hours PRN, Atorvastatin Calcium 1 Tablet (of 40 mg) Oral at bedtime, aug betamet 1 (0.05 %) Cream daily PRN, Clindamycin HCl 1 APL (of 1 %) Gel (jelly) Oral PRN, Clopidogrel Bisulfate 1 (75 mg) Tablet Oral daily, Coumadin 1.5 Tablet (of 5 mg) Oral daily, Flonase Allergy Relief 1 [place](s) (of 50 mcg/act) Suspension Nasal daily PRN, Hydrocortisone 1 (2.5 %) Cream Topical PRN, Iron 1 Tablet (of 325 (65 fe) mg) Oral midday, Ketoconazole 1 APL (of 2 %) Cream Topical PRN, Klor-Con 10 1 (10 meq) Tablet, controlled release Oral daily, levoFLOXacin 1 Tablet (of 500 mg) Oral PRN, Levothroid 1 Tablet (of 100 mcg) Oral daily, Lidocaine-Prilocaine 1 APL (of 2.5-2.5 %) Cream Topical PRN, Magnesium 1 Tablet (of 250 mg) Oral daily, Melatonin 1 Capsule Oral at bedtime, Metoprolol Tartrate 0.5 Tablet (of 25 mg) Oral daily, Montelukast Sodium 1 Tablet (of 10 mg) Oral daily Allergies: ChloraPrep One Step Review of Systems: Constitutional - His energy is pretty good, but he does have limited activity due to shortness of breath. Appetite is good and weight is stable. No fever. He occasionally has sweating at night. ECOG score is 1, ENMT - No sinus congestion/drainage. No mouth sores. No sore throat or difficulty swallowing, Hematologic/Lymphatic - No abnormal bruising or bleeding, Respiratory - He has shortness of breath with activity. He has just occasional cough. No pleuritic pain or hemoptysis, Cardiovascular - No angina pain. No palpitations, Gastrointestinal - No nausea or vomiting. No heartburn or acid reflux. No diarrhea or constipation. No blood in the stool or black stools, Genitourinary (M) - No dysuria or hematuria. No urinary frequency. No urgency or incontinence, Musculoskeletal - No joint or bone pain, Integumentary - No skin rash, Neurologic - No headache or dizziness. He has numbness/tingling in his hands and feet. No other focal neurologic symptoms, Psychiatric - He has some anxiety. No depression. He sleeps okay once he gets to sleep. Vital Signs: Performed on Aug 01, 2020 14:18 Height - 68.00 in Weight - 169.8 lbs (HIGH) BSA - 1.91 sq.m BMI - 25.82 Temperature - 98.3 F (LOW) Pulse - 70 /min Respiration - 24 /min BP - 149/84 mm(hg) (HIGH) O2 Sat - 94 % (LOW) Pain - 0 Physical Examination: Constitutional - He looks pretty good generally, Eyes - Sclerae nonicteric. Conjunctivae clear, ENMT - No lesions noted in the oral cavity, Hematologic/Lymphatic - No cervical, clavicular, or axillary adenopathy, Respiratory - Lungs sound clear with diminished air movement bilaterally, Cardiovascular - Heart rhythm appears regular. There is a II/ systolic murmur. There is no gallop or rub noted, Abdomen - Soft. Liver and spleen are not enlarged. There is no abdominal mass or ascites noted and there is no inguinal adenopathy, Extremities - No edema, Neurologic - There are no focal neurologic deficits noted. Lab/Imaging: Test performed on Aug 01, 2020 13:06 Iron 77 mcg/dL Sodium 140 mmol/L Iron Binding Capacity (TIBC) 220 mcg/dl Potassium 4.0 mmol/L % Iron Saturation 35.0 % Chloride 105 mmol/L CO2 25 mmol/L UIBC 143 mcg/dL Anion Gap 14.0 BUN 15 mg/dL Creatinine 1.0 mg/dL Cr Clearance (Est) 66.9400 mL/min Glucose 96 mg/dL Osmolality - Calculated 291 mOsm/kg Calcium 9.0 mg/dL Protein, Total 6.9 g/dL Albumin 3.7 g/dL Globulin 3.2 g/dL Bilirubin, Total 0.8 mg/dL ALT (SGPT) 26 U/L AST (SGOT) 21 U/L Alkaline Phosphatase 118 IU/L PT 28.50 SECONDS WBC 6.4 10 3/uL INR 2.56 RBC 4.69 10 6/uL HGB 13.8 g/dL HCT 42.0 % MCV 89.6 fL MCH 29.4 pg MCHC 32.9 g/dL RDW 14.1 % Platelet Count 247 10 3/cmm MPV 10.4 fL Neutrophils 4.66 10 3/uL Lymphocytes 0.9 10 3/uL Monocytes 0.6 10 3/uL Eosinophils 0.1 10 3/uL Basophils 0.1 10 3/uL Neutrophil % 73.5 % Lymphocyte % 14.3 % Monocyte % 9.1 % Eosinophil % 2.0 % Basophils % 0.8 % NRBC % 0 % Impression: 1. Patient has metastatic squamous cell carcinoma of unknown primary, but with clinical evidence of lung cancer. He had a large right-sided mass confluent with the thyroid gland, mediastinal adenopathy, bilateral lung nodules, and a liver lesion at initial presentation in September 2013. 2. He completed 35 noemi of radiation to the large mass at the level of the thoracic inlet. He was able to receive 2 weeks of carboplatin AUC of 2 with radiation. 3. Systemic chemotherapy with carboplatin AUC of 5 and Abraxane given from January 2014 to May 2014. Restaging imaging with PET/CT after 6 cycles of chemotherapy with a very good partial response. 4. Maintenance therapy Tarceva at 150 mg daily began on 07/11/14 based on SATURN trial. After 9 months of maintenance therapy he had progression of disease in liver. 5. Second line treatment with Nivolumab 3 mg/kg every 2 weeks began on 04/04/15. Unfortunately repeat CT of the chest abdomen/pelvis on 06/27/2015 after 3 months of treatment showed significant progression of disease in the liver lung and mediastinum. 6. He restarted systemic chemotherapy with carboplatin/Abraxane on 06/29/15. Restaging CT of the chest abdomen and pelvis on 09/19/2015 showed almost complete resolution of the liver metastases and decrease in subcarinal lymphadenopathy. Despite dose reductions, his treatment was complicated by progressive cytopenias, and at that point he continued treatment with Abraxane alone. 7. As of his followup visit in June 2016 he had completed 14 cycles of chemotherapy. Restaging CT scans had shown no obvious disease progression. He was having increasing fatigue and neuropathy symptoms, and at that point I had stopped his chemotherapy and began following him with observation/expectant management. His other medical illnesses include: 8. Hypertension. 9. Coronary artery disease. 10. Peripheral arterial disease. 11. COPD. 12. Hypothyroidism. He had significant improvement in his performance status after stopping chemotherapy. During subsequent follow-up he had remained stable clinically. In August 2018 he experienced a decline in his clinical status with increased weakness/fatigue and confusion. Brain MRI on 09/09/2018 showed no evidence of metastatic disease. There was, however, evidence of a recent right basal ganglia infarct despite the fact that he had been on anticoagulation with warfarin and Plavix. Restaging PET/CT on 09/12/2018 showed tiny subpleural pulmonary nodules measuring less than 4 mm. There was no evidence of active malignancy. At that point he continued on observation/symptomatic management. He then continued to complain of having a lightheaded/foggy feeling, and there was further decline in his performance status. As of March [address] scans showed no evidence of disease progression in the chest and no evidence of a neoplastic process of the abdomen or pelvis. His repeat brain MRI in April 2019 showed evidence of remote left cerebellar and right basal ganglia infarcts, but no evidence of metastatic involvement. During followup his HIM CLERK symptoms persisted. As of his visit on 07/14/2019 he had also become mildly anemic. His serum iron studies were consistent with iron deficiency, and he was subsequently confirmed to have a positive stool IFOB. He was referred to Dr. Dozier. His colonoscopy on 08/30/2019 showed sessile polyps in the cecum and in the ascending colon at the hepatic flexure. The hepatic flexure lesion was a tubular polyp with low-grade dysplasia, and it was completely removed. The cecal lesion was also a tubular adenoma but with focal high-grade dysplasia. It was large enough that it had to be removed piecemeal, and there was noted to be high-grade dysplasia at the edge of the specimen. As of 09/13/2019 his anemia worsened to the point that he required a transfusion of 2 units of PRBC. At that time he complained of increased shortness of breath. CT pulmonary angiogram showed no evidence of pulmonary emboli or other acute findings. There was no obvious recurrence/progression of the lung cancer. He also underwent cardiac evaluation with Dr. Banerjee, and his echocardiogram and stress test were unrevealing. His hemoglobin had subsequently remained adequate. During follow-up he had increasing fatigue and shortness of breath. He eventually did start treatment for emphysema, and he was referred to Dr. Fritz for pulmonary consultation. For unclear reasons, during the past month or so his protimes had gotten out of range, where before they had been very consistent. At this point he continues to have limited activity tolerance, but there is been no evidence of recurrence/progression of the squamous cell carcinoma. Plan: He remains on observation/expectant management for the squamous cell carcinoma. At least for now we will continue warfarin at 5 mg on Mondays and and 7.5 mg all other days. His other medications remain the same. His pro times will be monitored monthly. I will see him again in 3 months. Signed By: Juan Lee M.D. <<Signature on File>>
== END 2020-08-01 06:14 | disposition home or self-care (01) ==
LOC: ONCMED 06:15
PROVIDERS: PCP Family Medicine; Visit Provider Internal Medicine Medical Oncology
DX: Z08 Encounter for follow-up examination after completed treatment for malignant neoplasm (principal); C80.1 Malignant (primary) neoplasm, unspecified; C77.1 Secondary and unspecified malignant neoplasm of intrathoracic lymph nodes; C78.02 Secondary malignant neoplasm of left lung; C78.7 Secondary malignant neoplasm of liver and intrahepatic bile duct; I10 Essential (primary) hypertension; I25.10 Atherosclerotic heart disease of native coronary artery without angina pectoris; I73.9 Peripheral vascular disease, unspecified; J44.9 Chronic obstructive pulmonary disease, unspecified; E03.9 Hypothyroidism, unspecified; Z79.01 Long term (current) use of anticoagulants; Z92.21 Personal history of antineoplastic chemotherapy; Z92.3 Personal history of irradiation
CPT/HCPCS: 36591; 80053; 83540; 83550; 85025; 85610; 99214

== ENCOUNTER 2020-08-31 13:06 | Outpatient (CLI) | payer MEDICARE, OTHER, SELFPAY ==
[2020-08-31 13:59] LABS: INR 4.68 (0.8-1.2)
== END 2020-08-31 13:07 | disposition home or self-care (01) ==
LOC: ONCMED 13:08
PROVIDERS: PCP Family Medicine; Visit Provider Internal Medicine Medical Oncology
DX: C77.1 Secondary and unspecified malignant neoplasm of intrathoracic lymph nodes (principal); C78.02 Secondary malignant neoplasm of left lung; C78.7 Secondary malignant neoplasm of liver and intrahepatic bile duct; C80.1 Malignant (primary) neoplasm, unspecified; Z95.1 Presence of aortocoronary bypass graft; Z92.21 Personal history of antineoplastic chemotherapy; Z92.3 Personal history of irradiation
CPT/HCPCS: 36591; 85610

== ENCOUNTER 2020-10-02 12:31 | Outpatient (CLI) | payer MEDICARE, OTHER, SELFPAY ==
[2020-10-02 13:40] LABS: INR 2.92 (0.8-1.2)
== END 2020-10-02 12:32 | disposition home or self-care (01) ==
PROVIDERS: PCP Family Medicine; Visit Provider Internal Medicine Medical Oncology
DX: Z92.3 Personal history of irradiation (principal); Z45.2 Encounter for adjustment and management of vascular access device
CPT/HCPCS: 36591; 85610

== ENCOUNTER → 2020-10-05 13:36 | Outpatient (BNVA) | payer MEDICARE, OTHER, SELFPAY | PROVIDERS: PCP Family Medicine; Visit Provider Family Medicine | DX: E03.9 Hypothyroidism, unspecified (principal); E78.5 Hyperlipidemia, unspecified; I10 Essential (primary) hypertension | CPT/HCPCS: 80053; 80061; 84443; 85025 ==

== ENCOUNTER 2020-11-29 08:15 | Outpatient (CLI) | payer MEDICARE, OTHER, SELFPAY ==
[2020-11-29 09:12] LABS: Basophils # 0.1 10^3/uL (0.0-0.1); Eosinophils # 0.1 10^3/uL (0.0-0.8); Eosinophils % 1.8 %; Hematocrit 42.2 % (42.0-52.0); Hemoglobin 13.8 g/dL (11.7-16.6); Lymphocytes # 1.1 10^3/uL (0.8-4.8); Lymphocytes % 18.5 %; Mean Corpuscular HGB Conc 32.7 g/dL (30.0-36.0); Mean Corpuscular Hemoglobin 28.2 pg (28.0-34.0); Mean Corpuscular Volume 86.1 fL (80-94); Mean Platelet Volume 10.6 fL (7.4-10.4); Monocytes # 0.6 10^3/uL (0.2-0.9); Monocytes % 9.8 %; Neutrophils # 4.19 10^3/uL (1.8-7.7); Neutrophils % 68.7 %; Nucleated Red Blood Cells % 0 %; Platelet Count 249 10^3/cmm (130-400); Red Cell Distribution Width 13.8 % (12.1-15.1); White Blood Count 6.1 10^3/uL (4.0-10.0)
[2020-11-29 09:26] LABS: INR 1.68 (0.8-1.2)
[2020-11-29 09:33] LABS: Alanine Aminotransferase 30 U/L (0-41); Albumin Level 3.7 g/dL (3.5-5.2); Alkaline Phosphatase 146 IU/L (40-130); Anion Gap 16.8 (5-19); Aspartate Amino Transferase 22 U/L (0-40); Blood Urea Nitrogen 19 mg/dL (8-23); Calcium 9.1 mg/dL (8.5-10.5); Carbon Dioxide 22 mmol/L (22-29); Chloride 106 mmol/L (98-107); Globulin 3.2 g/dL (1.3-4.6); Glucose 95 mg/dL (65-115); Osmolality Calculated 294 mOsm/kg (285-295); Potassium 3.8 mmol/L (3.5-5.1); Sodium 141 mmol/L (136-145); Total Bilirubin 1.1 mg/dL (0.15-1.2); Total Protein 6.9 g/dL (6.6-8.7)
--- NOTE | 2020-12-03 12:46 | ONC FU_ITS ---
Dr. Lee Patient Follow-Up Note Patient: Tru Quarles Unit #: [id number]: 1945 Dicatated By: Juan Lee M.D.Date of Visit:Nov 29, 2020 Onc Med Follow-up/Prog Note Chief Complaint: Metastatic squamous cell cancer. 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 He presented with several months of chest discomfort and dyspnea, without hemoptysis. Chest x-ray on 10/18/2013 showed bilateral pulmonary nodules. CT of the chest, abdomen, and pelvis on 11/12/2013 revealed numerous pulmonary nodules bilaterally, with a large 4.9 cm mass in the right thoracic inlet, located in the expected location of the thyroid gland, causing deviation of the trachea to the left. There was mediastinal and hilar adenopathy, a 1.3 cm liver lesion, and a mild thickening of the distal esophagus. An FNA of thyroid mass on 11/26/2013 was nondiagnostic. On 12/20/2013 his flexible bronchoscopy showed a left lower lobe extrinsic bronchial compression with thick secretions. Mediastinoscopy recovered left level III and anterior level I lymph nodes. Biopsy revealed metastatic squamous cell carcinoma, positive for CK5, desmoglein and p-63, and negative for TTF-1 and napsin A. P16 was negative. He was first seen by Dr. Parra on 12/29/2013. His PET/CT on 12/31/2013 was inadequate; liver lesions could not be evaluated further due to extravasation of the contrast in the left arm. MRI of the brain was negative for metastatic disease. His endoscopy showed no tumor in the head and neck or esophagus. The patient completed 3500 cGy of palliative radiation treatment to the neck. He was able to receive only 2 weekly doses of carboplatin with AUC of 2, complicated significant radiation induced esophagitis. Systemic chemotherapy with carboplatin AUC of 5 and Abraxane was initiated on 01/31/2014. It was complicated with significant hematological toxicities with ANC dionna at 300, hemoglobin 8.4 g/dL; and acute shingles in the right neck, shoulder region. Restaging PET/CT after 6 cycles of treatment on 06/18/2014 showed a very good partial response to the treatment, with residual FDG negative pulmonary nodules down to only 1 cm. He had no lesions in the liver. Maintenance therapy with Tarceva 150 mg daily began on 07/11/2014. Restaging CT of the chest on 09/29/2014 showed ongoing positive response to the treatment. After 9 cycles of Tarceva a restaging CT of the chest, abdomen, and pelvis on 03/29/15 showed significant progression of disease in the liver. Second line nivolumab began on 04/04/2015, complicated with thyroiditis and decreasing requirement of synthroid. Restaging CT after 7 cycles of nivolumab on 06/27/2015 showed significant progression of disease in the liver as well as lung and mediastinum. His treatment was switched back to carboplatin and Abraxane, as he had a good clinical response with that regimen. Cycle 1 was delivered on 06/29/2015. His treatment was complicated with asthenia and neutropenia, requiring dose reduction. Cycle 3 also required Neulasta prophylaxis. Restaging CT of the abdomen and pelvis on 09/19/2015, after 4 cycles of carboplatin and Abraxane, showed almost total resolution of the liver metastases and decrease in subcarinal adenopathy. 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 As he had a very good response to the treatment, carboplatin was stopped, and he continued treatment with Abraxane alone. Due to hematological toxicities he was able to tolerate only 2 out of [address] His [address] of the chest, abdomen, and pelvis on 12/26/2015 showed unchanged small bilateral pulmonary nodules, but further decrease in the liver mass. Abraxane was continued, and another staging CT of the chest, abdomen, and pelvis on 03/11/2016 showed stable disease, without progression. He continued on Abraxane day 1 & 8 schedule every 3 weeks. He began cycle 14 chemotherapy with single agent Abraxane on 05/02/2016. At that point the treatment was changed to a day 1/day 15 schedule with Neulasta prophylaxis. His day 15 Abraxane was held because of worsening neuropathy and continued gradual performance status decline. He tried increasing his gabapentin to a TID schedule to help the neuropathy symptoms, but it made him crazy , and he went back to twice a day schedule. Restaging CT scan of the chest, abdomen, and pelvis was performed on 05/16/16. Multiple small scattered pulmonary nodules were again noted. There was a nonspecific 19 mm lesion within the liver, directly adjacent to the intrahepatic IVC, not significantly changed from the prior exam. There was a nonspecific 7 mm left adrenal nodule noted. Overall, there was no apparent disease progression. On his follow-up visit in June 2016 he was showing decline in performance status, and with the CT scans showing stable disease, I did opt to put his chemotherapy on hold and just monitor him with observation/expectant management. Repeat CT scans of the chest, abdomen, and pelvis on09/02/2016 showed stable treated and scarred previous pulmonary metastatic nodules. There was no evidence of disease progression. There was stable right superior paratracheal or right lobe thyroid region soft tissue thickening and there was no evidence of a neoplastic process in the abdomen or pelvis. CT scans of the chest, abdomen, and pelvis on 11/29/16 showed no evidence of recurrent or disease progression in the chest. There was stable appearance of multiple bilateral pulmonary nodular foci. There was continued mid- lower third esophageal circumferential wall thickening. There was no evidence of disease progression in the abdomen/pelvis. The hepatic lobe subcapsular lesion was unchanged. There was evidence of right femoral popliteal bypass graft occlusion, but unchanged from previous studies. His restaging CT scans on 06/16/2017 showed no evidence for recurrent or metastatic disease. CT scans of the chest on 12/08/2017 and on 02/24/2018 also showed no evidence of recurrent or progressive disease. CT scans of the chest, abdomen, and pelvis on 06/01/2018 showed stable appearance of the chest with bilateral upper and lower lobe nodular scarring, right apical subpleural scarring, and right superior paratracheal soft tissue thickening. There was stable distal third esophageal wall thickening. There was no evidence of a neoplastic process of the abdomen or pelvis. A circumscribed 1.8 cm oval-shaped low-density nodule in the caudate lobe of the liver appeared stable. It was thought to perhaps have peripheral nodular enhancement suggestive of benign cavernous hemangioma. He continued observation/expectant management. In early August 2018 his had called and reported a significant change in his condition with increased weakness/fatigue and new confusion. MRI of the brain on 09/09/2018 showed evidence of recent right basal ganglia infarct. There was no evidence of metastatic disease. Restaging PET/CT on 09/12/2018 showed tiny subpleural nodules measuring less than 4 mm. There was no evidence of active malignancy. Restaging CT scans on 04/16/2019 showed stable bilateral upper and lower lobe subpleural nodular densities and parenchymal scarring, right apical subpleural scarring, and right superior paratracheal soft tissue thickening. There was severe chronic emphysema. Overall, there was no evidence of disease progression in the chest and no evidence of a neoplastic process of the abdomen or pelvis. A left adrenal nodule appeared stable and there was no liver lesion identified. Repeat head MRI on 04/27/2019 showed no evidence of metastatic disease to the brain. There was evidence of remote left cerebellar and right basal ganglia infarcts and there are mild to moderate chronic microvascular ischemic changes noted. As of his follow-up visit on 07/14/2019 there had been no evidence of recurrence/progression of the lung cancer. However, at that point he had become mildly anemic, and his serum iron studies were consistent with iron deficiency. He was started on an oral iron supplement. He was subsequently found to have a positive stool IFOB. With that finding he was referred to Dr. Dozier. On 08/30/2019 he underwent EGD and colonoscopy. There were no abnormal findings on the EGD. The colonoscopy showed a 2.5 cm sessile polyp in the cecum and a 7 mm sessile polyp at the hepatic flexure in the ascending colon. The ascending colon lesion was completely removed, but the cecal lesion was large enough that it had to be removed in piecemeal. Pathology on the hepatic flexure lesion showed tubular adenoma with low-grade dysplasia. The cecal lesion also showed tubular adenoma but with focal high-grade dysplasia arising in a background of low-grade dysplasia. There was no invasive malignancy identified. There was a focus of high-grade dysplasia extending to an edge of the resection. As of 09/13/2019 there was further decline in his hemoglobin to 7.9 g, and at that point he was given a transfusion of 2 units PRBC. As of his follow-up visit on 10/14/2019 his hemoglobin was back up to 12.4 g, but his serum iron studies and ferritin were still consistent with iron deficiency. He was still having significant fatigue, and he continued to complain of shortness of breath. CT pulmonary angiogram at that time showed no evidence of pulmonary embolus. There were advanced chronic emphysematous changes, but there was no acute pulmonary infiltrate. Small subpleural opacities and parenchymal scarring appeared stable, as did soft tissue thickening in the right paratracheal area. A 7 mm adrenal nodule also appeared stable. During that time he also was seen by Dr. Banerjee and his subsequent cardiac evaluation with echocardiogram and stress test were unrevealing. During subsequent follow-up, he began treatment for COPD, and he was referred to Dr. Fritz for pulmonary consultation. His other medical illnesses include hypertension, coronary artery disease, peripheral arterial disease, and COPD. He underwent coronary artery bypass in November 2011 and he underwent femoropopliteal bypass in March 2012. He had a subsequent redo right femoropopliteal bypass, following which he has remained chronically anticoagulated with warfarin. He apparently also has had a mitral valve replacement. He had previously smoked a pack and half of cigarettes daily for 40 years. He quit smoking more than 10 years ago. INTERIM HISTORY: He is seen for a scheduled visit. He has been feeling okay, though he still has limited activity tolerance due to his shortness of breath. His ECOG score is 1. He has good appetite. Weight is up a few pounds. He has not had fever. He sometimes has sweating at night. He has shortness of breath, as noted. He does not complain of cough and he has not been having chest pain. He has occasional acid reflux, mainly when he lies down after eating. He has no other GI or complaints. He currently is not having any significant joint or bone pain. He does not complain of headache or dizziness. He has numbness/tingling in his hands and feet. He has no other focal neurologic symptoms. Medications: Albuterol 1 Aerosol, solution Inhalation q 4 hours PRN, Atorvastatin Calcium 1 Tablet (of 40 mg) Oral at bedtime, aug betamet 1 (0.05 %) Cream daily PRN, Clindamycin HCl 1 APL (of 1 %) Gel (jelly) Oral PRN, Clopidogrel Bisulfate 1 (75 mg) Tablet Oral daily, Coumadin 1 Tablet (of 5 mg) Oral daily, Flonase Allergy Relief 1 Orosi(s) (of 50 mcg/act) Suspension Nasal daily PRN, Hydrocortisone 1 (2.5 %) Cream Topical PRN, Iron 1 Tablet (of 325 (65 fe) mg) Oral midday, Ketoconazole 1 APL (of 2 %) Cream Topical PRN, Klor-Con 10 1 (10 meq) Tablet, controlled release Oral daily, levoFLOXacin 1 Tablet (of 500 mg) Oral PRN, Levothroid 1 Tablet (of 100 mcg) Oral daily, Lidocaine-Prilocaine 1 APL (of 2.5-2.5 %) Cream Topical PRN, Magnesium 1 Tablet (of 250 mg) Oral daily, Melatonin 1 Capsule Oral at bedtime, Metoprolol Tartrate 0.5 Tablet (of 25 mg) Oral daily, Montelukast Sodium 1 Tablet (of 10 mg) Oral daily Allergies: ChloraPrep One Step Vital Signs: Performed on Nov 29, 2020 10:10 Height - 68.00 in Weight - 174 lbs (HIGH) BSA - 1.93 sq.m BMI - 26.46 Temperature - 98.9 F (HIGH) Pulse - 94 /min Respiration - 18 /min BP - 120/69 mm(hg) O2 Sat - 96 % Pain - 0 Fatigue - 0 Physical Examination: Constitutional - He looks pretty good generally, Eyes - Sclerae nonicteric. Conjunctivae clear, ENMT - No lesions noted in the oral cavity, Hematologic/Lymphatic - No cervical, clavicular, or axillary adenopathy, Respiratory - Lungs sound clear with diminished air movement bilaterally, Cardiovascular - Heart rhythm appears regular. There is a II/ systolic murmur. There is no gallop or rub noted, Abdomen - Soft. Liver and spleen are not enlarged. There is no abdominal mass or ascites noted and there is no inguinal adenopathy, Extremities - No edema, Neurologic - There are no focal neurologic deficits noted. Lab/Imaging: Test performed on Nov 29, 2020 08:30 Sodium 141 mmol/L Potassium 3.8 mmol/L Chloride 106 mmol/L CO2 22 mmol/L Anion Gap 16.8 BUN 19 mg/dL Creatinine 1.1 mg/dL Cr Clearance (Est) 59.9400 mL/min Glucose 95 mg/dL Osmolality - Calculated 294 mOsm/kg Calcium 9.1 mg/dL Protein, Total 6.9 g/dL Albumin 3.7 g/dL Globulin 3.2 g/dL Bilirubin, Total 1.1 mg/dL ALT (SGPT) 30 U/L AST (SGOT) 22 U/L Alkaline Phosphatase 146 IU/L PT 20.30 SECONDS WBC 6.1 10 3/uL INR 1.68 RBC 4.90 10 6/uL HGB 13.8 g/dL HCT 42.2 % MCV 86.1 fL MCH 28.2 pg MCHC 32.7 g/dL RDW 13.8 % Platelet Count 249 10 3/cmm MPV 10.6 fL Neutrophils 4.19 10 3/uL Lymphocytes 1.1 10 3/uL Monocytes 0.6 10 3/uL Eosinophils 0.1 10 3/uL Basophils 0.1 10 3/uL Neutrophil % 68.7 % Lymphocyte % 18.5 % Monocyte % 9.8 % Eosinophil % 1.8 % Basophils % 1.0 % NRBC % 0 % Problem List: 1. Patient has metastatic squamous cell carcinoma of unknown primary, but with clinical evidence of lung cancer. He had a large right-sided mass confluent with the thyroid gland, mediastinal adenopathy, bilateral lung nodules, and a liver lesion at initial presentation in September 2013. 2. Hypertension. 3. Coronary artery disease. 4. Peripheral arterial disease. 5. Cerebral vascular disease. 6. COPD. 7. Hypothyroidism. 8. Iron deficiency anemia. Problems Addressed with this Encounter and Plan: 1. Patient has metastatic squamous cell carcinoma of unknown primary, but with clinical evidence of lung cancer. He had a large right-sided mass confluent with the thyroid gland, mediastinal adenopathy, bilateral lung nodules, and a liver lesion at initial presentation in September 2013. He completed 35 noemi of radiation to the large mass at the level of the thoracic inlet. He was able to receive 2 weeks of carboplatin AUC of 2 with radiation. Systemic chemotherapy with carboplatin AUC of 5 and Abraxane given from January 2014 to May 2014. Restaging imaging with PET/CT after 6 cycles of chemotherapy with a very good partial response. Maintenance therapy Tarceva at 150 mg daily began on 07/11/14 based on SATURN trial. After 9 months of maintenance therapy he had progression of disease in liver. Second line treatment with Nivolumab 3 mg/kg every 2 weeks began on 04/04/2015. Unfortunately repeat CT of the chest abdomen/pelvis on 06/27/2015 after 3 months of treatment showed significant progression of disease in the liver lung and mediastinum. He restarted systemic chemotherapy with carboplatin/Abraxane on 06/29/2015. Restaging CT of the chest abdomen and pelvis on 09/19/2015 showed almost complete resolution of the liver metastases and decrease in subcarinal lymphadenopathy. Despite dose reductions, his treatment was complicated by progressive cytopenias, and at that point he continued treatment with Abraxane alone. As of his followup visit in June 2016 he had completed 14 cycles of chemotherapy. Restaging CT scans had shown no obvious disease progression. He was having increasing fatigue and neuropathy symptoms, and at that point I had stopped his chemotherapy and he began on expectant management. During followup he has problems associated with his underlying COPD and with cerebral vascular disease. He also required treatment for iron deficiency anemia. Thus far there has been no evidence of recurrence of the squamous cell cancer. He remains on observation/expectant management. I will see him again in 3 months. 2. He is on chronic anticoagulation with warfarin. His protime is now a little subtherapeutic. His warfarin dosage will be adjusted accordingly. Protimes will be monitored monthly. Signed By: Juan Lee M.D. <<Signature on File>>
== END 2020-11-29 08:16 | disposition home or self-care (01) ==
PROVIDERS: PCP Family Medicine; Visit Provider Internal Medicine Medical Oncology
DX: Z08 Encounter for follow-up examination after completed treatment for malignant neoplasm (principal); Z85.9 Personal history of malignant neoplasm, unspecified; J44.9 Chronic obstructive pulmonary disease, unspecified; D50.9 Iron deficiency anemia, unspecified; I67.9 Cerebrovascular disease, unspecified; Z92.21 Personal history of antineoplastic chemotherapy; Z92.3 Personal history of irradiation; Z79.01 Long term (current) use of anticoagulants
CPT/HCPCS: 36591; 80053; 85025; 85610; 99214

== ENCOUNTER 2020-12-29 09:43 | Outpatient (CLI) | payer MEDICARE, OTHER, SELFPAY ==
[2020-12-29 10:38] LABS: INR 4.67 (0.8-1.2)
== END 2020-12-29 09:44 | disposition home or self-care (01) ==
PROVIDERS: PCP Family Medicine; Visit Provider Internal Medicine Medical Oncology
DX: Z51.81 Encounter for therapeutic drug level monitoring (principal); Z79.01 Long term (current) use of anticoagulants
CPT/HCPCS: 36591; 85610

== ENCOUNTER 2021-01-12 06:06 | Outpatient (CLI) | payer MEDICARE, OTHER, SELFPAY ==
[2021-01-12 10:33] LABS: INR 3.96 (0.8-1.2)
== END 2021-01-12 06:07 | disposition home or self-care (01) ==
LOC: ONCMED 06:07
PROVIDERS: PCP Family Medicine; Visit Provider Internal Medicine Medical Oncology
DX: C80.1 Malignant (primary) neoplasm, unspecified (principal); C78.7 Secondary malignant neoplasm of liver and intrahepatic bile duct; C78.02 Secondary malignant neoplasm of left lung; C77.1 Secondary and unspecified malignant neoplasm of intrathoracic lymph nodes
CPT/HCPCS: 36591; 85610

== ENCOUNTER → 2021-01-22 12:05 | Outpatient (BNVA) | payer MEDICARE, OTHER, SELFPAY | PROVIDERS: PCP Family Medicine; Visit Provider Family Medicine | DX: E03.9 Hypothyroidism, unspecified (principal); E78.5 Hyperlipidemia, unspecified | CPT/HCPCS: 80053; 80061; 84443; 85025 ==

== ENCOUNTER 2021-01-26 06:05 | Outpatient (CLI) | payer MEDICARE, OTHER, SELFPAY ==
[2021-01-26 10:13] LABS: INR 2.75 (0.8-1.2)
== END 2021-01-26 06:06 | disposition home or self-care (01) ==
LOC: ONCMED 06:09
PROVIDERS: PCP Family Medicine; Visit Provider Internal Medicine Medical Oncology
DX: Z45.2 Encounter for adjustment and management of vascular access device (principal); C80.1 Malignant (primary) neoplasm, unspecified; C78.7 Secondary malignant neoplasm of liver and intrahepatic bile duct; C77.1 Secondary and unspecified malignant neoplasm of intrathoracic lymph nodes; C78.02 Secondary malignant neoplasm of left lung; Z92.21 Personal history of antineoplastic chemotherapy; Z92.3 Personal history of irradiation
CPT/HCPCS: 36591; 85610

== ENCOUNTER 2021-02-28 08:07 | Outpatient (CLI) | payer MEDICARE, OTHER, SELFPAY ==
[2021-02-28 08:54] LABS: Basophils # 0.1 10^3/uL (0.0-0.1); Basophils % 0.9 %; Eosinophils # 0.1 10^3/uL (0.0-0.8); Hematocrit 41.3 % (42.0-52.0); Hemoglobin 13.2 g/dL (11.7-16.6); Lymphocytes # 0.8 10^3/uL (0.8-4.8); Mean Corpuscular Hemoglobin 27.1 pg (28.0-34.0); Mean Corpuscular Volume 84.8 fL (80-94); Mean Platelet Volume 10.3 fL (7.4-10.4); Monocytes # 0.8 10^3/uL (0.2-0.9); Monocytes % 12.1 %; Neutrophils # 4.57 10^3/uL (1.8-7.7); Neutrophils % 71.7 %; Nucleated Red Blood Cells % 0 %; Platelet Count 258 10^3/cmm (130-400); Red Blood Count 4.87 10^6/uL (4.1-5.3); Red Cell Distribution Width 14.8 % (12.1-15.1); White Blood Count 6.4 10^3/uL (4.0-10.0)
[2021-02-28 09:01] LABS: INR 4.33 (0.8-1.2)
[2021-02-28 09:11] LABS: Alanine Aminotransferase 19 U/L (0-41); Albumin Level 3.8 g/dL (3.5-5.2); Alkaline Phosphatase 136 IU/L (40-130); Anion Gap 13.6 (5-19); Aspartate Amino Transferase 19 U/L (0-40); Blood Urea Nitrogen 14 mg/dL (8-23); Calcium 8.2 mg/dL (8.5-10.5); Carbon Dioxide 22 mmol/L (22-29); Chloride 105 mmol/L (98-107); Glucose 94 mg/dL (65-115); Osmolality Calculated 284 mOsm/kg (285-295); Potassium 3.6 mmol/L (3.5-5.1); Sodium 137 mmol/L (136-145); Total Bilirubin 0.9 mg/dL (0.15-1.2); Total Protein 6.8 g/dL (6.6-8.7)
--- NOTE | 2021-03-01 07:44 | ONC FU_ITS ---
Dr. Lee Patient Follow-Up Note Patient: Tru Quarles Unit #: [id number]: 1945 Dicatated By: Juan Lee M.D.Date of Visit:Feb 28, 2021 Onc Med Follow-up/Prog Note Chief Complaint: Metastatic squamous cell cancer. 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 He presented with several months of chest discomfort and dyspnea, without hemoptysis. Chest x-ray on 10/18/2013 showed bilateral pulmonary nodules. CT of the chest, abdomen, and pelvis on 11/12/2013 revealed numerous pulmonary nodules bilaterally, with a large 4.9 cm mass in the right thoracic inlet, located in the expected location of the thyroid gland, causing deviation of the trachea to the left. There was mediastinal and hilar adenopathy, a 1.3 cm liver lesion, and a mild thickening of the distal esophagus. An FNA of thyroid mass on 11/26/2013 was nondiagnostic. On 12/20/2013 his flexible bronchoscopy showed a left lower lobe extrinsic bronchial compression with thick secretions. Mediastinoscopy recovered left level III and anterior level I lymph nodes. Biopsy revealed metastatic squamous cell carcinoma, positive for CK5, desmoglein and p-63, and negative for TTF-1 and napsin A. P16 was negative. He was first seen by Dr. Parra on 12/29/2013. His PET/CT on 12/31/2013 was inadequate; liver lesions could not be evaluated further due to extravasation of the contrast in the left arm. MRI of the brain was negative for metastatic disease. His endoscopy showed no tumor in the head and neck or esophagus. The patient completed 3500 cGy of palliative radiation treatment to the neck. He was able to receive only 2 weekly doses of carboplatin with AUC of 2, complicated significant radiation induced esophagitis. Systemic chemotherapy with carboplatin AUC of 5 and Abraxane was initiated on 01/31/2014. It was complicated with significant hematological toxicities with ANC dionna at 300, hemoglobin 8.4 g/dL; and acute shingles in the right neck, shoulder region. Restaging PET/CT after 6 cycles of treatment on 06/18/2014 showed a very good partial response to the treatment, with residual FDG negative pulmonary nodules down to only 1 cm. He had no lesions in the liver. Maintenance therapy with Tarceva 150 mg daily began on 07/11/2014. Restaging CT of the chest on 09/29/2014 showed ongoing positive response to the treatment. After 9 cycles of Tarceva a restaging CT of the chest, abdomen, and pelvis on 03/29/15 showed significant progression of disease in the liver. Second line nivolumab began on 04/04/2015, complicated with thyroiditis and decreasing requirement of synthroid. Restaging CT after 7 cycles of nivolumab on 06/27/2015 showed significant progression of disease in the liver as well as lung and mediastinum. His treatment was switched back to carboplatin and Abraxane, as he had a good clinical response with that regimen. Cycle 1 was delivered on 06/29/2015. His treatment was complicated with asthenia and neutropenia, requiring dose reduction. Cycle 3 also required Neulasta prophylaxis. Restaging CT of the abdomen and pelvis on 09/19/2015, after 4 cycles of carboplatin and Abraxane, showed almost total resolution of the liver metastases and decrease in subcarinal adenopathy. 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 As he had a very good response to the treatment, carboplatin was stopped, and he continued treatment with Abraxane alone. Due to hematological toxicities he was able to tolerate only 2 out of [address] His [address] of the chest, abdomen, and pelvis on 12/26/2015 showed unchanged small bilateral pulmonary nodules, but further decrease in the liver mass. Abraxane was continued, and another staging CT of the chest, abdomen, and pelvis on 03/11/2016 showed stable disease, without progression. He continued on Abraxane day 1 & 8 schedule every 3 weeks. He began cycle 14 chemotherapy with single agent Abraxane on 05/02/2016. At that point the treatment was changed to a day 1/day 15 schedule with Neulasta prophylaxis. His day 15 Abraxane was held because of worsening neuropathy and continued gradual performance status decline. He tried increasing his gabapentin to a TID schedule to help the neuropathy symptoms, but it made him crazy , and he went back to twice a day schedule. Restaging CT scan of the chest, abdomen, and pelvis was performed on 05/16/16. Multiple small scattered pulmonary nodules were again noted. There was a nonspecific 19 mm lesion within the liver, directly adjacent to the intrahepatic IVC, not significantly changed from the prior exam. There was a nonspecific 7 mm left adrenal nodule noted. Overall, there was no apparent disease progression. On his follow-up visit in June 2016 he was showing decline in performance status, and with the CT scans showing stable disease, I did opt to put his chemotherapy on hold and just monitor him with observation/expectant management. Repeat CT scans of the chest, abdomen, and pelvis on09/02/2016 showed stable treated and scarred previous pulmonary metastatic nodules. There was no evidence of disease progression. There was stable right superior paratracheal or right lobe thyroid region soft tissue thickening and there was no evidence of a neoplastic process in the abdomen or pelvis. CT scans of the chest, abdomen, and pelvis on 11/29/16 showed no evidence of recurrent or disease progression in the chest. There was stable appearance of multiple bilateral pulmonary nodular foci. There was continued mid- lower third esophageal circumferential wall thickening. There was no evidence of disease progression in the abdomen/pelvis. The hepatic lobe subcapsular lesion was unchanged. There was evidence of right femoral popliteal bypass graft occlusion, but unchanged from previous studies. His restaging CT scans on 06/16/2017 showed no evidence for recurrent or metastatic disease. CT scans of the chest on 12/08/2017 and on 02/24/2018 also showed no evidence of recurrent or progressive disease. CT scans of the chest, abdomen, and pelvis on 06/01/2018 showed stable appearance of the chest with bilateral upper and lower lobe nodular scarring, right apical subpleural scarring, and right superior paratracheal soft tissue thickening. There was stable distal third esophageal wall thickening. There was no evidence of a neoplastic process of the abdomen or pelvis. A circumscribed 1.8 cm oval-shaped low-density nodule in the caudate lobe of the liver appeared stable. It was thought to perhaps have peripheral nodular enhancement suggestive of benign cavernous hemangioma. He continued observation/expectant management. In early August 2018 his had called and reported a significant change in his condition with increased weakness/fatigue and new confusion. MRI of the brain on 09/09/2018 showed evidence of recent right basal ganglia infarct. There was no evidence of metastatic disease. Restaging PET/CT on 09/12/2018 showed tiny subpleural nodules measuring less than 4 mm. There was no evidence of active malignancy. Restaging CT scans on 04/16/2019 showed stable bilateral upper and lower lobe subpleural nodular densities and parenchymal scarring, right apical subpleural scarring, and right superior paratracheal soft tissue thickening. There was severe chronic emphysema. Overall, there was no evidence of disease progression in the chest and no evidence of a neoplastic process of the abdomen or pelvis. A left adrenal nodule appeared stable and there was no liver lesion identified. Repeat head MRI on 04/27/2019 showed no evidence of metastatic disease to the brain. There was evidence of remote left cerebellar and right basal ganglia infarcts and there are mild to moderate chronic microvascular ischemic changes noted. As of his follow-up visit on 07/14/2019 there had been no evidence of recurrence/progression of the lung cancer. However, at that point he had become mildly anemic, and his serum iron studies were consistent with iron deficiency. He was started on an oral iron supplement. He was subsequently found to have a positive stool IFOB. With that finding he was referred to Dr. Dozier. On 08/30/2019 he underwent EGD and colonoscopy. There were no abnormal findings on the EGD. The colonoscopy showed a 2.5 cm sessile polyp in the cecum and a 7 mm sessile polyp at the hepatic flexure in the ascending colon. The ascending colon lesion was completely removed, but the cecal lesion was large enough that it had to be removed in piecemeal. Pathology on the hepatic flexure lesion showed tubular adenoma with low-grade dysplasia. The cecal lesion also showed tubular adenoma but with focal high-grade dysplasia arising in a background of low-grade dysplasia. There was no invasive malignancy identified. There was a focus of high-grade dysplasia extending to an edge of the resection. As of 09/13/2019 there was further decline in his hemoglobin to 7.9 g, and at that point he was given a transfusion of 2 units PRBC. As of his follow-up visit on 10/14/2019 his hemoglobin was back up to 12.4 g, but his serum iron studies and ferritin were still consistent with iron deficiency. He was still having significant fatigue, and he continued to complain of shortness of breath. CT pulmonary angiogram at that time showed no evidence of pulmonary embolus. There were advanced chronic emphysematous changes, but there was no acute pulmonary infiltrate. Small subpleural opacities and parenchymal scarring appeared stable, as did soft tissue thickening in the right paratracheal area. A 7 mm adrenal nodule also appeared stable. During that time he also was seen by Dr. Banerjee and his subsequent cardiac evaluation with echocardiogram and stress test were unrevealing. During subsequent follow-up, he began treatment for COPD, and he was referred to Dr. Fritz for pulmonary consultation. His other medical illnesses include hypertension, coronary artery disease, peripheral arterial disease, and COPD. He underwent coronary artery bypass in November 2011 and he underwent femoropopliteal bypass in March 2012. He had a subsequent redo right femoropopliteal bypass, following which he has remained chronically anticoagulated with warfarin. He apparently also has had a mitral valve replacement. He had previously smoked a pack and half of cigarettes daily for 40 years. He quit smoking more than 10 years ago. INTERIM HISTORY: His repeat chest CT on 04/19/2020 showed chronic emphysema with stable pleural and subpleural nodules. There was no evidence for new or increasing pulmonary nodule or mass. There is no mediastinal or hilar adenopathy noted. A left adrenal nodule appeared stable. There was moderate thickening of the esophagus, possibly related to esophagitis from reflux disease. With those findings he continued on expectant management. He is seen for a scheduled visit. He has been feeling pretty good generally, though he has been more tired and he has had a further reduction in his activity. His ECOG score is 2. He has good appetite. He has not had fever. He sometimes has sweating at night. His throat is a little bit sore at times, but that may just be due to dryness. He is short of breath with any activity. He does not complain of cough, and he has not been having chest pain. He has a little bit of acid reflux at night. He has no other GI or complaints. He has no significant joint or bone pain. He does not complain of headache or dizziness. He has residual neuropathy in his hands and feet. Medications: Albuterol 1 Aerosol, solution Inhalation q 4 hours PRN, Atorvastatin Calcium 1 Tablet (of 80 mg) Oral at bedtime, aug betamet 1 (0.05 %) Cream daily PRN, Clindamycin HCl 1 APL (of 1 %) Gel (jelly) Oral PRN, Clopidogrel Bisulfate 1 (75 mg) Tablet Oral daily, Coumadin 1 Tablet (of 5 mg) Oral daily, Flonase Allergy Relief 1 [place](s) (of 50 mcg/act) Suspension Nasal daily PRN, Hydrocortisone 1 (2.5 %) Cream Topical PRN, Ketoconazole 1 APL (of 2 %) Cream Topical PRN, Klor-Con 10 1 (10 meq) Tablet, controlled release Oral daily, levoFLOXacin 1 Tablet (of 500 mg) Oral PRN, Levothroid 1 Tablet (of 125 mcg) Oral daily, Lidocaine-Prilocaine 1 APL (of 2.5-2.5 %) Cream Topical PRN, Magnesium 1 Tablet (of 250 mg) Oral daily, Melatonin 1 Capsule Oral at bedtime, Metoprolol Tartrate 0.5 Tablet (of 25 mg) Oral daily, Montelukast Sodium 1 Tablet (of 10 mg) Oral daily Allergies: ChloraPrep One Step Vital Signs: Performed on Feb 28, 2021 09:46 Height - 68.00 in Weight - 170 lbs (LOW) BSA - 1.91 sq.m BMI - 25.85 Temperature - 97.3 F (LOW) Pulse - 91 /min Respiration - 18 /min BP - 135/73 mm(hg) O2 Sat - 97 % Pain - 0 Physical Examination: Constitutional - He looks pretty good generally, Eyes - Sclerae nonicteric. Conjunctivae clear, ENMT - No lesions noted in the oral cavity, Hematologic/Lymphatic - No cervical, clavicular, or axillary adenopathy, Respiratory - Lungs sound clear with diminished air movement bilaterally, Cardiovascular - Heart rhythm is regular. There is a II/ systolic murmur. There is no gallop or rub noted, Abdomen - Soft. Liver and spleen are not enlarged. There is no abdominal mass or ascites noted and there is no inguinal adenopathy, Extremities - No edema, Neurologic - There are no focal neurologic deficits noted. Lab/Imaging: Test performed on Feb 28, 2021 08:25 Sodium 137 mmol/L Potassium 3.6 mmol/L Chloride 105 mmol/L CO2 22 mmol/L Anion Gap 13.6 BUN 14 mg/dL Creatinine 1.0 mg/dL Cr Clearance (Est) 65.9300 mL/min Glucose 94 mg/dL Osmolality - Calculated 284 mOsm/kg Calcium 8.2 mg/dL Protein, Total 6.8 g/dL Albumin 3.8 g/dL Globulin 3.0 g/dL Bilirubin, Total 0.9 mg/dL ALT (SGPT) 19 U/L AST (SGOT) 19 U/L Alkaline Phosphatase 136 IU/L PT 42.10 SECONDS WBC 6.4 10 3/uL INR 4.33 RBC 4.87 10 6/uL HGB 13.2 g/dL HCT 41.3 % MCV 84.8 fL MCH 27.1 pg MCHC 32.0 g/dL RDW 14.8 % Platelet Count 258 10 3/cmm MPV 10.3 fL Neutrophils 4.57 10 3/uL Lymphocytes 0.8 10 3/uL Monocytes 0.8 10 3/uL Eosinophils 0.1 10 3/uL Basophils 0.1 10 3/uL Neutrophil % 71.7 % Lymphocyte % 13.0 % Monocyte % 12.1 % Eosinophil % 2.0 % Basophils % 0.9 % NRBC % 0 % Problem List: 1. Patient has metastatic squamous cell carcinoma of unknown primary, but with clinical evidence of lung cancer. He had a large right-sided mass confluent with the thyroid gland, mediastinal adenopathy, bilateral lung nodules, and a liver lesion at initial presentation in September 2013. 2. Hypertension. 3. Coronary artery disease. 4. Peripheral arterial disease. 5. Cerebral vascular disease. 6. COPD. 7. Hypothyroidism. 8. Iron deficiency anemia. Problems Addressed with this Encounter and Plan: 1. Patient with metastatic squamous cell carcinoma of unknown primary, but with clinical evidence of lung cancer. He had a large right-sided mass confluent with the thyroid gland, mediastinal adenopathy, bilateral lung nodules, and a liver lesion at initial presentation in September 2013. He completed 35 Gy of radiation to the large mass at the level of the thoracic inlet. He was able to receive 2 weeks of carboplatin AUC of 2 with radiation. Systemic chemotherapy with carboplatin AUC of 5 and Abraxane given from January 2014 to May 2014. Restaging imaging with PET/CT after 6 cycles of chemotherapy with a very good partial response. Maintenance therapy Tarceva at 150 mg daily began on 07/11/2014 based on SATURN trial. After 9 months of maintenance therapy he had progression of disease in liver. Second line treatment with nivolumab 3 mg/kg every 2 weeks began on 04/04/2015. Unfortunately repeat CT of the chest abdomen/pelvis on 06/27/2015 after 3 months of treatment showed significant progression of disease in the liver lung and mediastinum. He then restarted systemic chemotherapy with carboplatin/Abraxane on 06/29/2015. Restaging CT of the chest abdomen and pelvis on 09/19/2015 showed almost complete resolution of the liver metastases and decrease in subcarinal lymphadenopathy. Despite dose reductions, his treatment was complicated by progressive cytopenias, and at that point he continued treatment with Abraxane alone. As of his followup visit in June 2016 he had completed 14 cycles of chemotherapy. Restaging CT scans had shown no obvious disease progression. He was having increasing fatigue and neuropathy symptoms, and at that point I had stopped his chemotherapy. He was then followed expectantly. During followup he had problems associated with his underlying COPD and with cerebral vascular disease. He also required treatment for iron deficiency anemia. He has had some gradual decline in his activity tolerance/performance status. However, thus far there has been no evidence of recurrence/progression of the squamous cell cancer. He remains on observation/expectant management. He will be scheduled for restaging CT scans of the chest, abdomen, pelvis in 1 month, which will be a 1-year interval study. I will tentatively plan a follow-up visit in 3 months. 2. He has been on chronic anticoagulation with warfarin. His protime is monitored monthly and his warfarin dosage will be adjusted accordingly. Signed By: Juan Lee M.D. <<Signature on File>>
== END 2021-02-28 08:08 | disposition home or self-care (01) ==
LOC: ONCMED 08:13
PROVIDERS: PCP Family Medicine; Visit Provider Internal Medicine Medical Oncology
DX: C73 Malignant neoplasm of thyroid gland (principal); C78.01 Secondary malignant neoplasm of right lung; C78.02 Secondary malignant neoplasm of left lung; C78.7 Secondary malignant neoplasm of liver and intrahepatic bile duct; I10 Essential (primary) hypertension; I25.10 Atherosclerotic heart disease of native coronary artery without angina pectoris; I73.9 Peripheral vascular disease, unspecified; J44.9 Chronic obstructive pulmonary disease, unspecified; E03.9 Hypothyroidism, unspecified; D50.9 Iron deficiency anemia, unspecified; Z79.899 Other long term (current) drug therapy; Z92.21 Personal history of antineoplastic chemotherapy
CPT/HCPCS: 36591; 80053; 85025; 85610; 99214

== ENCOUNTER 2021-03-27 12:38 | Outpatient (CLI) | payer MEDICARE, OTHER, SELFPAY ==
--- NOTE | 2021-03-27 12:00 | CT_ITS ---
WS: [id number] CT CHEST, ABDOMEN, AND PELVIS TECHNIQUE: Contrast-enhanced CT of the chest, abdomen, and pelvis with coronal and sagittal reformatt ed images. CLINICAL INFORMATION: METASTATIC SQUAMOUS CELL CANCER COMPARISON: CT chest April 19, [address] chest abdomen pelvis . PET/CT DLP: 2293.[address] scans at [facility] use at least one of these dose optimization techniques: automat ed exposure control; mA and/or kV adjustment per patient size (includes targeted exams where dose is matched to clinical indication); or iterative reconstruction. CT CHEST: Moderate chronic emphysematous changes. No acute pulmonary infiltrates. No consolidation or pleural f luid. A few subcentimeter noncalcified pulmonary nodules are unchanged. Largest fibrotic nodule adjac ent to the diaphragm measuring 6 mm unchanged. Right subpleural nodular opacity measuring 7 mm unchan ged. Aortic calcification. Coronary calcification. No mediastinal or hilar lymphadenopathy. Tiny esophagea l hiatal hernia. No axillary lymphadenopathy. CT ABDOMEN AND PELVIS:Mild diffuse fatty infiltration liver. Stable low-attenuation lesion in the cau date adjacent to the IVC likely cavernous hemangioma is unchanged. This measures 12 mm. Normal portal vein and splenic vein. Fatty atrophy of the pancreas. Splenic granulomas. Stable tiny left adrenal n odule likely adenoma measuring 9 mm. Stable left renal cyst measuring 1.9 CM. No hydronephrosis in either kidney. Aortic calcification. Sm all distal abdominal aortic aneurysm measuring 2.7 x 2.6 cm unchanged AP by transverse. No abdominal or periaortic lymphadenopathy. No retroperitoneal lymphadenopathy. Enlarged calcified prostate measur ing 4.8 cm. Sigmoid diverticulosis. No evidence of acute diverticulitis. Normal appendix in the right lower quadrant. No free fluid in the abdomen or pelvis. Hypertrophic prakash nges thoracic spine. Chronic anterior wedging T11. Prior sternotomy.. CT/CT chest abd pel w con* IMPRESSION: 1. No evidence of metastatic disease in the chest abdomen or pelvis. 2. Several subcentimeter pulmonary nodules are unchanged since 2018 3. No mediastinal or hilar lymphadenopathy. No adenopathy in the abdomen or pe lvis. 4. Mild diffuse fatty infiltration liver. 5. Stable low-attenuation lesion in the caudate measuring 12 mm likely caverno us hemangioma. 6. Small distal abdominal aortic aneurysm measuring 2.7 x 2.6 CM. 7. Enlarged prostate measuring 4.8 cm. Recommend correlation PSA. 8. Stable left adrenal nodule likely adenoma. 9. No other significant changes compared to previous.
[2021-03-27] MEDS: iohexol 300 mg/mL 100 mL Btl IV (13:45)
[2021-03-27] MEDS: iohexol 300 mg/mL 50 mL Btl PO (13:56)
== END 2021-03-27 12:39 | disposition home or self-care (01) ==
LOC: RADWPI 12:39
PROVIDERS: PCP Family Medicine; Visit Provider Internal Medicine Medical Oncology
DX: C80.1 Malignant (primary) neoplasm, unspecified (principal); N40.0 Benign prostatic hyperplasia without lower urinary tract symptoms; I71.4 Abdominal aortic aneurysm, without rupture; K76.0 Fatty (change of) liver, not elsewhere classified; R91.8 Other nonspecific abnormal finding of lung field
CPT/HCPCS: 71260; 74177; Q9967

== ENCOUNTER 2021-03-30 06:01 | Outpatient (CLI) | payer MEDICARE, OTHER, SELFPAY ==
[2021-03-30 11:24] LABS: INR 5.24 (0.8-1.2)
== END 2021-03-30 06:02 | disposition home or self-care (01) ==
LOC: ONCMED 06:05
PROVIDERS: PCP Family Medicine; Visit Provider Internal Medicine Medical Oncology
DX: Z85.9 Personal history of malignant neoplasm, unspecified; I25.10 Atherosclerotic heart disease of native coronary artery without angina pectoris; D50.9 Iron deficiency anemia, unspecified; Z79.01 Long term (current) use of anticoagulants; I10 Essential (primary) hypertension
CPT/HCPCS: 36415; 36591; 85610

== ENCOUNTER 2021-04-13 05:58 | Outpatient (CLI) | payer MEDICARE, OTHER, SELFPAY ==
[2021-04-13 09:33] LABS: INR 3.28 (0.8-1.2)
== END 2021-04-13 05:59 | disposition home or self-care (01) ==
LOC: ONCMED 06:01
PROVIDERS: PCP Family Medicine; Visit Provider Internal Medicine Medical Oncology
DX: Z85.118 Personal history of other malignant neoplasm of bronchus and lung (principal); D50.9 Iron deficiency anemia, unspecified; I10 Essential (primary) hypertension; J44.9 Chronic obstructive pulmonary disease, unspecified; Z79.899 Other long term (current) drug therapy; I25.10 Atherosclerotic heart disease of native coronary artery without angina pectoris; I70.209 Unspecified atherosclerosis of native arteries of extremities, unspecified extremity
CPT/HCPCS: 36415; 36591; 85610

== ENCOUNTER → 2021-04-30 08:40 | Outpatient (BNVA) | payer MEDICARE, OTHER, SELFPAY | PROVIDERS: PCP Family Medicine; Visit Provider Family Medicine | DX: E03.9 Hypothyroidism, unspecified (principal); E78.5 Hyperlipidemia, unspecified; I10 Essential (primary) hypertension | CPT/HCPCS: 80053; 80061; 84443; 85025 ==

== ENCOUNTER → 2021-05-02 14:08 | Outpatient (BNVA) | payer MEDICARE, OTHER, SELFPAY | PROVIDERS: PCP Family Medicine; Visit Provider Family Medicine | DX: I10 Essential (primary) hypertension (principal); E03.9 Hypothyroidism, unspecified; E78.5 Hyperlipidemia, unspecified; J44.9 Chronic obstructive pulmonary disease, unspecified; Z79.01 Long term (current) use of anticoagulants | CPT/HCPCS: 85610 ==

== ENCOUNTER 2021-05-04 10:13 | Outpatient (CLI) | payer MEDICARE, OTHER, SELFPAY ==
[2021-05-04 11:01] LABS: INR 2.95 (0.8-1.2)
== END 2021-05-04 10:14 | disposition home or self-care (01) ==
LOC: ONCMED 10:16
PROVIDERS: PCP Family Medicine; Visit Provider Internal Medicine Medical Oncology
DX: Z79.01 Long term (current) use of anticoagulants (principal)
CPT/HCPCS: 36591; 85610

== ENCOUNTER → 2021-05-08 08:53 | Outpatient (BNVA) | payer MEDICARE, OTHER, SELFPAY | PROVIDERS: PCP Family Medicine; Visit Provider Family Medicine | DX: I82.409 Acute embolism and thrombosis of unspecified deep veins of unspecified lower extremity (principal); Z79.01 Long term (current) use of anticoagulants | CPT/HCPCS: 85610 ==

== ENCOUNTER 2021-05-10 10:09 | Outpatient (RCR) | payer MEDICARE, OTHER, SELFPAY | END 2021-05-22 23:59 | disposition home or self-care (01) | LOC: PULRHB 10:09 | PROVIDERS: PCP Family Medicine; Visit Provider Internal Medicine Critical Care Medicine | DX: J44.9 Chronic obstructive pulmonary disease, unspecified (principal) | CPT/HCPCS: 94618 ==

== ENCOUNTER → 2021-05-15 09:11 | Outpatient (BNVA) | payer MEDICARE, OTHER, SELFPAY | PROVIDERS: PCP Family Medicine; Visit Provider Family Medicine | DX: Z79.01 Long term (current) use of anticoagulants (principal) | CPT/HCPCS: 85610 ==

== ENCOUNTER 2021-05-23 06:00 | Outpatient (RCR) | payer MEDICARE, OTHER, SELFPAY | END 2021-06-21 23:59 | disposition home or self-care (01) | LOC: TPT 06:00 | PROVIDERS: PCP Family Medicine; Referring Provider Internal Medicine Critical Care Medicine; Visit Provider Internal Medicine Critical Care Medicine | DX: R53.1 Weakness (principal) | CPT/HCPCS: 97110 ==

== ENCOUNTER 2021-06-01 11:44 | Outpatient (CLI) | payer MEDICARE, OTHER, SELFPAY ==
[2021-06-01 14:09] LABS: INR 2.62 (0.8-1.2)
== END 2021-06-01 11:45 | disposition home or self-care (01) ==
LOC: ONCMED 11:48
PROVIDERS: PCP Family Medicine; Visit Provider Internal Medicine Medical Oncology
DX: C73 Malignant neoplasm of thyroid gland (principal); C78.01 Secondary malignant neoplasm of right lung; C78.02 Secondary malignant neoplasm of left lung; C78.7 Secondary malignant neoplasm of liver and intrahepatic bile duct; I25.10 Atherosclerotic heart disease of native coronary artery without angina pectoris; I73.9 Peripheral vascular disease, unspecified; Z79.899 Other long term (current) drug therapy
CPT/HCPCS: 36591; 85610

== ENCOUNTER 2021-06-04 06:13 | Outpatient (CLI) | payer MEDICARE, OTHER, SELFPAY ==
--- NOTE | 2021-06-04 18:15 | ONC FU_ITS ---
Dr. Lee Patient Follow-Up Note Patient: Tru Quarles Unit #: [id number]: 1945 Dicatated By: Juan Lee M.D.Date of Visit:Jun 04, 2021 Onc Med Follow-up/Prog Note Chief Complaint: Metastatic squamous cell cancer. 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 He presented with several months of chest discomfort and dyspnea, without hemoptysis. Chest x-ray on 10/18/2013 showed bilateral pulmonary nodules. CT of the chest, abdomen, and pelvis on 11/12/2013 revealed numerous pulmonary nodules bilaterally, with a large 4.9 cm mass in the right thoracic inlet, located in the expected location of the thyroid gland, causing deviation of the trachea to the left. There was mediastinal and hilar adenopathy, a 1.3 cm liver lesion, and a mild thickening of the distal esophagus. An FNA of thyroid mass on 11/26/2013 was nondiagnostic. On 12/20/2013 his flexible bronchoscopy showed a left lower lobe extrinsic bronchial compression with thick secretions. Mediastinoscopy recovered left level III and anterior level I lymph nodes. Biopsy revealed metastatic squamous cell carcinoma, positive for CK5, desmoglein and p-63, and negative for TTF-1 and napsin A. P16 was negative. He was first seen by Dr. Parra on 12/29/2013. His PET/CT on 12/31/2013 was inadequate; liver lesions could not be evaluated further due to extravasation of the contrast in the left arm. MRI of the brain was negative for metastatic disease. His endoscopy showed no tumor in the head and neck or esophagus. The patient completed 3500 cGy of palliative radiation treatment to the neck. He was able to receive only 2 weekly doses of carboplatin with AUC of 2, complicated significant radiation induced esophagitis. Systemic chemotherapy with carboplatin AUC of 5 and Abraxane was initiated on 01/31/2014. It was complicated with significant hematological toxicities with ANC dionna at 300, hemoglobin 8.4 g/dL; and acute shingles in the right neck, shoulder region. Restaging PET/CT after 6 cycles of treatment on 06/18/2014 showed a very good partial response to the treatment, with residual FDG negative pulmonary nodules down to only 1 cm. He had no lesions in the liver. Maintenance therapy with Tarceva 150 mg daily began on 07/11/2014. Restaging CT of the chest on 09/29/2014 showed ongoing positive response to the treatment. After 9 cycles of Tarceva a restaging CT of the chest, abdomen, and pelvis on 03/29/15 showed significant progression of disease in the liver. Second line nivolumab began on 04/04/2015, complicated with thyroiditis and decreasing requirement of synthroid. Restaging CT after 7 cycles of nivolumab on 06/27/2015 showed significant progression of disease in the liver as well as lung and mediastinum. His treatment was switched back to carboplatin and Abraxane, as he had a good clinical response with that regimen. Cycle 1 was delivered on 06/29/2015. His treatment was complicated with asthenia and neutropenia, requiring dose reduction. Cycle 3 also required Neulasta prophylaxis. Restaging CT of the abdomen and pelvis on 09/19/2015, after 4 cycles of carboplatin and Abraxane, showed almost total resolution of the liver metastases and decrease in subcarinal adenopathy. 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 As he had a very good response to the treatment, carboplatin was stopped, and he continued treatment with Abraxane alone. Due to hematological toxicities he was able to tolerate only 2 out of [address] cycle[address] His [address] of the chest, abdomen, and pelvis on 12/26/2015 showed unchanged small bilateral pulmonary nodules, but further decrease in the liver mass. Abraxane was continued, and another staging CT of the chest, abdomen, and pelvis on 03/11/2016 showed stable disease, without progression. He continued on Abraxane day 1 & 8 schedule every 3 weeks. He began cycle 14 chemotherapy with single agent Abraxane on 05/02/2016. At that point the treatment was changed to a day 1/day 15 schedule with Neulasta prophylaxis. His day 15 Abraxane was held because of worsening neuropathy and continued gradual performance status decline. He tried increasing his gabapentin to a TID schedule to help the neuropathy symptoms, but it made him crazy , and he went back to twice a day schedule. Restaging CT scan of the chest, abdomen, and pelvis was performed on 05/16/16. Multiple small scattered pulmonary nodules were again noted. There was a nonspecific 19 mm lesion within the liver, directly adjacent to the intrahepatic IVC, not significantly changed from the prior exam. There was a nonspecific 7 mm left adrenal nodule noted. Overall, there was no apparent disease progression. On his follow-up visit in June 2016 he was showing decline in performance status, and with the CT scans showing stable disease, I did opt to put his chemotherapy on hold and just monitor him with observation/expectant management. Repeat CT scans of the chest, abdomen, and pelvis on09/02/2016 showed stable treated and scarred previous pulmonary metastatic nodules. There was no evidence of disease progression. There was stable right superior paratracheal or right lobe thyroid region soft tissue thickening and there was no evidence of a neoplastic process in the abdomen or pelvis. CT scans of the chest, abdomen, and pelvis on 11/29/16 showed no evidence of recurrent or disease progression in the chest. There was stable appearance of multiple bilateral pulmonary nodular foci. There was continued mid- lower third esophageal circumferential wall thickening. There was no evidence of disease progression in the abdomen/pelvis. The hepatic lobe subcapsular lesion was unchanged. There was evidence of right femoral popliteal bypass graft occlusion, but unchanged from previous studies. His restaging CT scans on 06/16/2017 showed no evidence for recurrent or metastatic disease. CT scans of the chest on 12/08/2017 and on 02/24/2018 also showed no evidence of recurrent or progressive disease. CT scans of the chest, abdomen, and pelvis on 06/01/2018 showed stable appearance of the chest with bilateral upper and lower lobe nodular scarring, right apical subpleural scarring, and right superior paratracheal soft tissue thickening. There was stable distal third esophageal wall thickening. There was no evidence of a neoplastic process of the abdomen or pelvis. A circumscribed 1.8 cm oval-shaped low-density nodule in the caudate lobe of the liver appeared stable. It was thought to perhaps have peripheral nodular enhancement suggestive of benign cavernous hemangioma. He continued observation/expectant management. In early August 2018 his had called and reported a significant change in his condition with increased weakness/fatigue and new confusion. MRI of the brain on 09/09/2018 showed evidence of recent right basal ganglia infarct. There was no evidence of metastatic disease. Restaging PET/CT on 09/12/2018 showed tiny subpleural nodules measuring less than 4 mm. There was no evidence of active malignancy. Restaging CT scans on 04/16/2019 showed stable bilateral upper and lower lobe subpleural nodular densities and parenchymal scarring, right apical subpleural scarring, and right superior paratracheal soft tissue thickening. There was severe chronic emphysema. Overall, there was no evidence of disease progression in the chest and no evidence of a neoplastic process of the abdomen or pelvis. A left adrenal nodule appeared stable and there was no liver lesion identified. Repeat head MRI on 04/27/2019 showed no evidence of metastatic disease to the brain. There was evidence of remote left cerebellar and right basal ganglia infarcts and there are mild to moderate chronic microvascular ischemic changes noted. As of his follow-up visit on 07/14/2019 there had been no evidence of recurrence/progression of the lung cancer. However, at that point he had become mildly anemic, and his serum iron studies were consistent with iron deficiency. He was started on an oral iron supplement. He was subsequently found to have a positive stool IFOB. With that finding he was referred to Dr. Dozier. On 08/30/2019 he underwent EGD and colonoscopy. There were no abnormal findings on the EGD. The colonoscopy showed a 2.5 cm sessile polyp in the cecum and a 7 mm sessile polyp at the hepatic flexure in the ascending colon. The ascending colon lesion was completely removed, but the cecal lesion was large enough that it had to be removed in piecemeal. Pathology on the hepatic flexure lesion showed tubular adenoma with low-grade dysplasia. The cecal lesion also showed tubular adenoma but with focal high-grade dysplasia arising in a background of low-grade dysplasia. There was no invasive malignancy identified. There was a focus of high-grade dysplasia extending to an edge of the resection. As of 09/13/2019 there was further decline in his hemoglobin to 7.9 g, and at that point he was given a transfusion of 2 units PRBC. As of his follow-up visit on 10/14/2019 his hemoglobin was back up to 12.4 g, but his serum iron studies and ferritin were still consistent with iron deficiency. He was still having significant fatigue, and he continued to complain of shortness of breath. CT pulmonary angiogram at that time showed no evidence of pulmonary embolus. There were advanced chronic emphysematous changes, but there was no acute pulmonary infiltrate. Small subpleural opacities and parenchymal scarring appeared stable, as did soft tissue thickening in the right paratracheal area. A 7 mm adrenal nodule also appeared stable. During that time he also was seen by Dr. Banerjee and his subsequent cardiac evaluation with echocardiogram and stress test were unrevealing. During subsequent follow-up, he began treatment for COPD, and he was referred to Dr. Fritz for pulmonary consultation. His other medical illnesses include hypertension, coronary artery disease, peripheral arterial disease, and COPD. He underwent coronary artery bypass in November 2011 and he underwent femoropopliteal bypass in March 2012. He had a subsequent redo right femoropopliteal bypass, following which he has remained chronically anticoagulated with warfarin. He apparently also has had a mitral valve replacement. He had previously smoked a pack and half of cigarettes daily for 40 years. He quit smoking more than 10 years ago. INTERIM HISTORY: His chest CT on 04/19/2020 showed chronic emphysema with stable pleural and subpleural nodules. There was no evidence for new or increasing pulmonary nodule or mass. There is no mediastinal or hilar adenopathy noted. A left adrenal nodule appeared stable. There was moderate thickening of the esophagus, possibly related to esophagitis from reflux disease. With those findings he continued on expectant management. Restaging CT scans of the chest, abdomen, and pelvis on 03/27/2021 showed moderate chronic emphysematous changes but without acute pulmonary infiltrates. A few subcentimeter noncalcified pulmonary nodules appeared unchanged. There was no mediastinal or hilar lymphadenopathy noted. A low-attenuation lesion in the caudate lobe of the liver adjacent to the IVC was felt to be most likely a cavernous hemangioma, and it appeared unchanged measuring 12 mm. The prostate was noted to be enlarged measuring 4.8 cm. A small distal abdominal aortic aneurysm measuring 2.7 x 2.6 cm appeared unchanged. There was chronic anterior wedging of the T11 vertebral body. Overall, there was no evidence for metastatic disease in the chest, abdomen, or pelvis. He is seen for a follow-up visit. He says he has been feeling pretty good, though he still has very limited activity tolerance. He did start pulmonary rehab in April. His ECOG score is 2. He has good appetite. He has not had fever. He occasionally has a little bit of sweating at night. He has not had sore throat or difficulty swallowing. He is short of breath with activity. He does not complain of cough and he has not been having chest pain. He currently has no GI or complaints. He has no significant joint or bone pain. He does not complain of headache or dizziness. 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 He has had some problems with short-term memory, but it does not seem to be getting worse. Medications: Albuterol 1 Aerosol, solution Inhalation q 4 hours PRN, Atorvastatin Calcium 1 Tablet (of 80 mg) Oral at bedtime, aug betamet 1 (0.05 %) Cream daily PRN, Clindamycin HCl 1 APL (of 1 %) Gel (jelly) Oral PRN, Clopidogrel Bisulfate 1 (75 mg) Tablet Oral daily, Coumadin 1 Tablet (of 5 mg) Oral daily, Flonase Allergy Relief 1 Mcalpin(s) (of 50 mcg/act) Suspension Nasal daily PRN, Hydrocortisone 1 (2.5 %) Cream Topical PRN, Ketoconazole 1 APL (of 2 %) Cream Topical PRN, Klor-Con 10 1 (10 meq) Tablet, controlled release Oral daily, levoFLOXacin 1 Tablet (of 500 mg) Oral PRN, Levothroid 1 Tablet (of 125 mcg) Oral daily, Lidocaine-Prilocaine 1 APL (of 2.5-2.5 %) Cream Topical PRN, Magnesium 1 Tablet (of 250 mg) Oral daily, Melatonin 1 Capsule Oral at bedtime, Metoprolol Tartrate 0.5 Tablet (of 25 mg) Oral daily, Montelukast Sodium 1 Tablet (of 10 mg) Oral daily Allergies: ChloraPrep One Step Vital Signs: Performed on Jun 04, 2021 14:34 Height - 68.00 in Weight - 171.8 lbs (HIGH) BSA - 1.92 sq.m BMI - 26.12 Temperature - 97.8 F (LOW) Pulse - 69 /min Respiration - 18 /min BP - 117/70 mm(hg) O2 Sat - 97 % Pain - 0 Fatigue - 4 Physical Examination: Constitutional - He appears somewhat weak generally, Eyes - Sclerae nonicteric. Conjunctivae clear, ENMT - No lesions noted in the oral cavity, Hematologic/Lymphatic - No cervical, clavicular, or axillary adenopathy, Respiratory - Lungs sound clear with diminished air movement bilaterally, Cardiovascular - Heart rhythm is regular. There is a II/ systolic murmur. There is no gallop or rub noted, Abdomen - Soft. Liver and spleen are not enlarged. There is no abdominal mass or ascites noted and there is no inguinal adenopathy, Extremities - No edema, Neurologic - There are no focal neurologic deficits noted. Lab/Imaging: Test performed on Jun 01, 2021 12:10 PT 28.40 SECONDS INR 2.62 Problem List: 1. Patient has metastatic squamous cell carcinoma of unknown primary, but with clinical evidence of lung cancer. He had a large right-sided mass confluent with the thyroid gland, mediastinal adenopathy, bilateral lung nodules, and a liver lesion at initial presentation in September 2013. 2. Hypertension. 3. Coronary artery disease. 4. Peripheral arterial disease. 5. Cerebral vascular disease. 6. COPD. 7. Hypothyroidism. 8. Iron deficiency anemia. Problems Addressed with this Encounter and Plan: 1. Patient with metastatic squamous cell carcinoma of unknown primary, but with clinical evidence of lung cancer. He had a large right-sided mass confluent with the thyroid gland, mediastinal adenopathy, bilateral lung nodules, and a liver lesion at initial presentation in September 2013. He completed 35 Gy of radiation to the large mass at the level of the thoracic inlet. He was able to receive 2 weeks of carboplatin AUC of 2 with radiation. Systemic chemotherapy with carboplatin AUC of 5 and Abraxane given from January 2014 to May 2014. Restaging imaging with PET/CT after 6 cycles of chemotherapy with a very good partial response. Maintenance therapy Tarceva at 150 mg daily began on 07/11/2014 based on SATURN trial. After 9 months of maintenance therapy he had progression of disease in liver. Second line treatment with nivolumab 3 mg/kg every 2 weeks began on 04/04/2015. Unfortunately repeat CT of the chest abdomen/pelvis on 06/27/2015 after 3 months of treatment showed significant progression of disease in the liver lung and mediastinum. He then restarted systemic chemotherapy with carboplatin/Abraxane on 06/29/2015. Restaging CT of the chest abdomen and pelvis on 09/19/2015 showed almost complete resolution of the liver metastases and decrease in subcarinal lymphadenopathy. Despite dose reductions, his treatment was complicated by progressive cytopenias, and at that point he continued treatment with Abraxane alone. As of his followup visit in June 2016 he had completed 14 cycles of chemotherapy. Restaging CT scans had shown no obvious disease progression. He was having increasing fatigue and neuropathy symptoms, and at that point I had stopped his chemotherapy. He was then followed expectantly. During followup he had problems associated with his underlying COPD and with cerebral vascular disease. He also required treatment for iron deficiency anemia. He has had some gradual decline in his activity tolerance/performance status. However, thus far there has been no evidence of recurrence/progression of the squamous cell cancer. He remains on expectant management. He will have additional laboratory studies with his next port flush to include CBC, comprehensive metabolic profile, pro time, and B12 level. In addition, given the CT findings, I will check a PSA level. I will see him again in 6 months, or sooner as needed. 2. He has been on chronic anticoagulation with warfarin. His protime is monitored monthly. Results will now be forwarded to Dr. Monroe for his warfarin management. Signed By: Juan Lee M.D. <<Signature on File>>
== END 2021-06-04 06:14 | disposition home or self-care (01) ==
LOC: ONCMED 06:13
PROVIDERS: PCP Family Medicine; Visit Provider Internal Medicine Medical Oncology
DX: Z08 Encounter for follow-up examination after completed treatment for malignant neoplasm (principal); Z85.118 Personal history of other malignant neoplasm of bronchus and lung; J44.9 Chronic obstructive pulmonary disease, unspecified; D50.9 Iron deficiency anemia, unspecified; I10 Essential (primary) hypertension; I25.10 Atherosclerotic heart disease of native coronary artery without angina pectoris; I73.9 Peripheral vascular disease, unspecified; E03.9 Hypothyroidism, unspecified; Z79.01 Long term (current) use of anticoagulants; Z79.899 Other long term (current) drug therapy; Z79.890 Hormone replacement therapy; Z92.21 Personal history of antineoplastic chemotherapy
CPT/HCPCS: 99214

== ENCOUNTER → 2021-06-21 11:04 | Outpatient (BNVA) | payer MEDICARE, OTHER, SELFPAY | PROVIDERS: PCP Family Medicine; Visit Provider Family Medicine | DX: Z79.899 Other long term (current) drug therapy (principal); Z79.01 Long term (current) use of anticoagulants | CPT/HCPCS: 85610 ==

== ENCOUNTER 2021-06-22 06:00 | Outpatient (RCR) | payer MEDICARE, OTHER, SELFPAY | END 2021-07-22 23:59 | disposition home or self-care (01) | LOC: TPT 06:00 | PROVIDERS: PCP Family Medicine; Referring Provider Internal Medicine Critical Care Medicine; Visit Provider Internal Medicine Critical Care Medicine | DX: R53.1 Weakness (principal) | CPT/HCPCS: 97110; 97164 ==

== ENCOUNTER 2021-07-06 08:51 | Outpatient (CLI) | payer MEDICARE, OTHER, SELFPAY ==
[2021-07-06 09:28] LABS: Basophils % 0.7 %; Eosinophils # 0.1 10^3/uL (0.0-0.8); Eosinophils % 1.7 %; Hematocrit 40.8 % (42.0-52.0); Hemoglobin 13.2 g/dL (11.7-16.6); Lymphocytes % 16.3 %; Mean Corpuscular HGB Conc 32.4 g/dL (30.0-36.0); Mean Corpuscular Volume 83.4 fl (80-94); Mean Platelet Volume 10.2 fL (7.4-10.4); Monocytes # 0.5 10^3/uL (0.2-0.9); Monocytes % 8.7 %; Neutrophils % 72.3 %; Nucleated Red Blood Cells % 0 %; Platelet Count 243 10^3/cmm (130-400); Red Blood Count 4.89 10^6/uL (4.1-5.3); Red Cell Distribution Width 15.2 % (12.1-15.1)
[2021-07-06 09:44] LABS: INR 2.18 (0.8-1.2)
[2021-07-06 10:15] LABS: Alanine Aminotransferase 20 U/L (0-41); Albumin Level 3.7 g/dL (3.5-5.2); Alkaline Phosphatase 132 IU/L (40-130); Anion Gap 16.7 (5-19); Aspartate Amino Transferase 17 U/L (0-40); Blood Urea Nitrogen 13 mg/dL (8-23); Calcium 8.5 mg/dL (8.5-10.5); Carbon Dioxide 21 mmol/L (22-29); Chloride 103 mmol/L (98-107); Globulin 3.2 g/dL (1.3-4.6); Glucose 91 mg/dL (65-115); Osmolality Calculated 284 mOsm/kg (285-295); Potassium 3.7 mmol/L (3.5-5.1); Sodium 137 mmol/L (136-145); Total Bilirubin 0.9 mg/dL (0.15-1.2); Total Protein 6.9 g/dL (6.6-8.7)
[2021-07-06 11:14] LABS: Vitamin B12 249 pg/mL (232-1245)
== END 2021-07-06 08:52 | disposition home or self-care (01) ==
PROVIDERS: PCP Family Medicine; Visit Provider Internal Medicine Medical Oncology
DX: C80.1 Malignant (primary) neoplasm, unspecified (principal); C78.01 Secondary malignant neoplasm of right lung; C78.02 Secondary malignant neoplasm of left lung; C78.7 Secondary malignant neoplasm of liver and intrahepatic bile duct; C78.1 Secondary malignant neoplasm of mediastinum; C79.89 Secondary malignant neoplasm of other specified sites; Z79.899 Other long term (current) drug therapy
CPT/HCPCS: 36591; 80053; 82607; 84153; 85025; 85610

== ENCOUNTER → 2021-07-18 10:22 | Outpatient (BNVA) | payer MEDICARE, OTHER, SELFPAY | PROVIDERS: PCP Family Medicine; Visit Provider Nurse Practitioner Family | DX: Z11.52 Encounter for screening for COVID-19 (principal); R05.9 Cough, unspecified; J06.9 Acute upper respiratory infection, unspecified; J44.9 Chronic obstructive pulmonary disease, unspecified; I10 Essential (primary) hypertension | CPT/HCPCS: 85025; 87635 ==

== ENCOUNTER 2021-08-03 09:50 | Outpatient (CLI) | payer MEDICARE, OTHER, SELFPAY ==
[2021-08-03 10:44] LABS: INR 3.01 (0.8-1.2)
== END 2021-08-03 09:51 | disposition home or self-care (01) ==
LOC: ONCMED 09:53
PROVIDERS: PCP Family Medicine; Visit Provider Internal Medicine Medical Oncology
DX: C80.1 Malignant (primary) neoplasm, unspecified (principal); C78.7 Secondary malignant neoplasm of liver and intrahepatic bile duct; C78.02 Secondary malignant neoplasm of left lung; C77.1 Secondary and unspecified malignant neoplasm of intrathoracic lymph nodes; I25.10 Atherosclerotic heart disease of native coronary artery without angina pectoris; Z95.5 Presence of coronary angioplasty implant and graft; Z79.899 Other long term (current) drug therapy
CPT/HCPCS: 36591; 85610

== ENCOUNTER → 2021-08-10 09:01 | Outpatient (BNVA) | payer MEDICARE, OTHER, SELFPAY | PROVIDERS: PCP Family Medicine; Visit Provider Family Medicine | DX: Z86.718 Personal history of other venous thrombosis and embolism (principal) | CPT/HCPCS: 85610 ==

== ENCOUNTER → 2021-08-20 15:09 | Outpatient (BNVA) | payer MEDICARE, OTHER, SELFPAY | PROVIDERS: PCP Family Medicine; Visit Provider Family Medicine | DX: Z86.718 Personal history of other venous thrombosis and embolism (principal) | CPT/HCPCS: 85610 ==

== ENCOUNTER → 2021-08-31 09:13 | Outpatient (BNVA) | payer MEDICARE, OTHER, SELFPAY | PROVIDERS: PCP Family Medicine; Visit Provider Family Medicine | DX: Z86.718 Personal history of other venous thrombosis and embolism (principal) | CPT/HCPCS: 85610 ==

== ENCOUNTER 2021-09-07 10:40 | Outpatient (CLI) | payer MEDICARE, OTHER, SELFPAY ==
[2021-09-07 11:24] LABS: Basophils # 0.1 10^3/uL (0.0-0.1); Basophils % 0.9 %; Eosinophils # 0.1 10^3/uL (0.0-0.8); Eosinophils % 1.3 %; Hematocrit 40.2 % (42.0-52.0); Hemoglobin 12.8 g/dL (11.7-16.6); Lymphocytes # 0.9 10^3/uL (0.8-4.8); Lymphocytes % 11.1 %; Mean Corpuscular HGB Conc 31.8 g/dL (30.0-36.0); Mean Corpuscular Hemoglobin 26.2 pg (28.0-34.0); Mean Corpuscular Volume 82.2 fl (80-94); Mean Platelet Volume 10.4 fL (7.4-10.4); Monocytes # 0.6 10^3/uL (0.2-0.9); Neutrophils # 6.08 10^3/uL (1.8-7.7); Neutrophils % 78.4 %; Nucleated Red Blood Cells % 0 %; Platelet Count 276 10^3/cmm (130-400); Red Blood Count 4.89 10^6/uL (4.1-5.3); Red Cell Distribution Width 15.9 % (12.1-15.1); White Blood Count 7.8 10^3/uL (4.0-10.0)
[2021-09-07 11:42] LABS: INR 1.83 (0.8-1.2)
[2021-09-07 11:48] LABS: Alanine Aminotransferase 35 U/L (0-41); Albumin Level 3.9 g/dL (3.5-5.2); Alkaline Phosphatase 149 IU/L (40-130); Anion Gap 19.3 (5-19); Aspartate Amino Transferase 28 U/L (0-40); Blood Urea Nitrogen 16 mg/dL (8-23); Calcium 8.5 mg/dL (8.5-10.5); Carbon Dioxide 20 mmol/L (22-29); Chloride 105 mmol/L (98-107); Globulin 2.8 g/dL (1.3-4.6); Glucose 86 mg/dL (65-115); Osmolality Calculated 290 mOsm/kg (285-295); Potassium 4.3 mmol/L (3.5-5.1); Sodium 140 mmol/L (136-145); Total Bilirubin 0.9 mg/dL (0.15-1.2); Total Protein 6.7 g/dL (6.6-8.7)
[2021-09-07 12:24] LABS: Vitamin B12 336 pg/mL (232-1245)
== END 2021-09-07 10:41 | disposition home or self-care (01) ==
LOC: ONCMED 10:43
PROVIDERS: PCP Family Medicine; Visit Provider Internal Medicine Medical Oncology
DX: C34.90 Malignant neoplasm of unspecified part of unspecified bronchus or lung (principal); J40 Bronchitis, not specified as acute or chronic; J06.9 Acute upper respiratory infection, unspecified; R05.9 Cough, unspecified; Z11.52 Encounter for screening for COVID-19; Z86.718 Personal history of other venous thrombosis and embolism; Z92.29 Personal history of other drug therapy; I10 Essential (primary) hypertension; E03.9 Hypothyroidism, unspecified; R06.02 Shortness of breath; I73.9 Peripheral vascular disease, unspecified; Z95.1 Presence of aortocoronary bypass graft; E78.5 Hyperlipidemia, unspecified; J44.9 Chronic obstructive pulmonary disease, unspecified; I25.10 Atherosclerotic heart disease of native coronary artery without angina pectoris; I65.29 Occlusion and stenosis of unspecified carotid artery; D64.9 Anemia, unspecified
CPT/HCPCS: 36591; 80053; 82607; 84153; 85025; 85610

== ENCOUNTER → 2021-09-17 12:04 | Outpatient (BNVA) | payer MEDICARE, OTHER, SELFPAY | PROVIDERS: PCP Family Medicine; Visit Provider Nurse Practitioner Family | DX: R05.9 Cough, unspecified (principal); J40 Bronchitis, not specified as acute or chronic; J06.9 Acute upper respiratory infection, unspecified | CPT/HCPCS: 87635 ==

== ENCOUNTER → 2021-09-25 10:24 | Outpatient (BNVA) | payer MEDICARE, OTHER, SELFPAY | PROVIDERS: PCP Family Medicine; Visit Provider Family Medicine | DX: Z86.718 Personal history of other venous thrombosis and embolism (principal) | CPT/HCPCS: 85610 ==

== ENCOUNTER 2021-10-05 10:18 | Outpatient (CLI) | payer MEDICARE, OTHER, SELFPAY ==
[2021-10-05 11:41] LABS: INR 2.38 (0.8-1.2)
== END 2021-10-05 10:19 | disposition home or self-care (01) ==
LOC: ONCMED 10:25
PROVIDERS: PCP Family Medicine; Visit Provider Internal Medicine Medical Oncology
DX: C80.1 Malignant (primary) neoplasm, unspecified (principal); C78.7 Secondary malignant neoplasm of liver and intrahepatic bile duct; C78.02 Secondary malignant neoplasm of left lung; C77.1 Secondary and unspecified malignant neoplasm of intrathoracic lymph nodes; I25.10 Atherosclerotic heart disease of native coronary artery without angina pectoris; Z95.5 Presence of coronary angioplasty implant and graft
CPT/HCPCS: 36591; 85610

== ENCOUNTER 2021-11-09 10:24 | Outpatient (CLI) | payer MEDICARE, OTHER, SELFPAY ==
[2021-11-09 11:21] LABS: INR 3.17 (0.8-1.2)
== END 2021-11-09 10:25 | disposition home or self-care (01) ==
LOC: ONCMED 10:26
PROVIDERS: PCP Family Medicine; Visit Provider Internal Medicine Medical Oncology
DX: Z86.718 Personal history of other venous thrombosis and embolism (principal)
CPT/HCPCS: 36591; 85610

== ENCOUNTER → 2021-11-23 10:24 | Outpatient (BNVA) | payer MEDICARE, OTHER, SELFPAY | PROVIDERS: PCP Family Medicine; Visit Provider Family Medicine | DX: I82.409 Acute embolism and thrombosis of unspecified deep veins of unspecified lower extremity (principal) | CPT/HCPCS: 85610 ==

== ENCOUNTER 2021-12-07 10:00 | Outpatient (CLI) | payer MEDICARE, OTHER, SELFPAY | END 2021-12-07 10:01 | disposition home or self-care (01) | LOC: ONCMED 10:11 | PROVIDERS: PCP Family Medicine; Visit Provider Internal Medicine Medical Oncology | DX: Z86.718 Personal history of other venous thrombosis and embolism (principal) | CPT/HCPCS: 36591; 85610 ==

== ENCOUNTER 2021-12-10 12:13 | Outpatient (CLI) | payer MEDICARE, OTHER, SELFPAY ==
--- NOTE | 2021-12-14 16:48 | ONC FU_ITS ---
Dr. Lee Patient Follow-Up Note Patient: Tru Quarles Unit #: [id number]: 1945 Dicatated By: Juan Lee M.D.Date of Visit:Dec 10, 2021 Onc Med Follow-up/Prog Note Chief Complaint: Metastatic squamous cell cancer. 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 He presented with several months of chest discomfort and dyspnea, without hemoptysis. Chest x-ray on 10/18/2013 showed bilateral pulmonary nodules. CT of the chest, abdomen, and pelvis on 11/12/2013 revealed numerous pulmonary nodules bilaterally, with a large 4.9 cm mass in the right thoracic inlet, located in the expected location of the thyroid gland, causing deviation of the trachea to the left. There was mediastinal and hilar adenopathy, a 1.3 cm liver lesion, and a mild thickening of the distal esophagus. An FNA of thyroid mass on 11/26/2013 was nondiagnostic. On 12/20/2013 his flexible bronchoscopy showed a left lower lobe extrinsic bronchial compression with thick secretions. Mediastinoscopy recovered left level III and anterior level I lymph nodes. Biopsy revealed metastatic squamous cell carcinoma, positive for CK5, desmoglein and p-63, and negative for TTF-1 and napsin A. P16 was negative. He was first seen by Dr. Parra on 12/29/2013. His PET/CT on 12/31/2013 was inadequate; liver lesions could not be evaluated further due to extravasation of the contrast in the left arm. MRI of the brain was negative for metastatic disease. His endoscopy showed no tumor in the head and neck or esophagus. The patient completed 3500 cGy of palliative radiation treatment to the neck. He was able to receive only 2 weekly doses of carboplatin with AUC of 2, complicated significant radiation induced esophagitis. Systemic chemotherapy with carboplatin AUC of 5 and Abraxane was initiated on 01/31/2014. It was complicated with significant hematological toxicities with ANC dionna at 300, hemoglobin 8.4 g/dL; and acute shingles in the right neck, shoulder region. Restaging PET/CT after 6 cycles of treatment on 06/18/2014 showed a very good partial response to the treatment, with residual FDG negative pulmonary nodules down to only 1 cm. He had no lesions in the liver. Maintenance therapy with Tarceva 150 mg daily began on 07/11/2014. Restaging CT of the chest on 09/29/2014 showed ongoing positive response to the treatment. After 9 cycles of Tarceva a restaging CT of the chest, abdomen, and pelvis on 03/29/15 showed significant progression of disease in the liver. Second line nivolumab began on 04/04/2015, complicated with thyroiditis and decreasing requirement of synthroid. Restaging CT after 7 cycles of nivolumab on 06/27/2015 showed significant progression of disease in the liver as well as lung and mediastinum. His treatment was switched back to carboplatin and Abraxane, as he had a good clinical response with that regimen. Cycle 1 was delivered on 06/29/2015. His treatment was complicated with asthenia and neutropenia, requiring dose reduction. Cycle 3 also required Neulasta prophylaxis. Restaging CT of the abdomen and pelvis on 09/19/2015, after 4 cycles of carboplatin and Abraxane, showed almost total resolution of the liver metastases and decrease in subcarinal adenopathy. 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 As he had a very good response to the treatment, carboplatin was stopped, and he continued treatment with Abraxane alone. Due to hematological toxicities he was able to tolerate only 2 out of [address] His [address] of the chest, abdomen, and pelvis on 12/26/2015 showed unchanged small bilateral pulmonary nodules, but further decrease in the liver mass. Abraxane was continued, and another staging CT of the chest, abdomen, and pelvis on 03/11/2016 showed stable disease, without progression. He continued on Abraxane day 1 & 8 schedule every 3 weeks. He began cycle 14 chemotherapy with single agent Abraxane on 05/02/2016. At that point the treatment was changed to a day 1/day 15 schedule with Neulasta prophylaxis. His day 15 Abraxane was held because of worsening neuropathy and continued gradual performance status decline. He tried increasing his gabapentin to a TID schedule to help the neuropathy symptoms, but it made him crazy , and he went back to twice a day schedule. Restaging CT scan of the chest, abdomen, and pelvis was performed on 05/16/16. Multiple small scattered pulmonary nodules were again noted. There was a nonspecific 19 mm lesion within the liver, directly adjacent to the intrahepatic IVC, not significantly changed from the prior exam. There was a nonspecific 7 mm left adrenal nodule noted. Overall, there was no apparent disease progression. On his follow-up visit in June 2016 he was showing decline in performance status, and with the CT scans showing stable disease, I did opt to put his chemotherapy on hold and just monitor him with observation/expectant management. Repeat CT scans of the chest, abdomen, and pelvis on09/02/2016 showed stable treated and scarred previous pulmonary metastatic nodules. There was no evidence of disease progression. There was stable right superior paratracheal or right lobe thyroid region soft tissue thickening and there was no evidence of a neoplastic process in the abdomen or pelvis. CT scans of the chest, abdomen, and pelvis on 11/29/16 showed no evidence of recurrent or disease progression in the chest. There was stable appearance of multiple bilateral pulmonary nodular foci. There was continued mid- lower third esophageal circumferential wall thickening. There was no evidence of disease progression in the abdomen/pelvis. The hepatic lobe subcapsular lesion was unchanged. There was evidence of right femoral popliteal bypass graft occlusion, but unchanged from previous studies. His restaging CT scans on 06/16/2017 showed no evidence for recurrent or metastatic disease. CT scans of the chest on 12/08/2017 and on 02/24/2018 also showed no evidence of recurrent or progressive disease. CT scans of the chest, abdomen, and pelvis on 06/01/2018 showed stable appearance of the chest with bilateral upper and lower lobe nodular scarring, right apical subpleural scarring, and right superior paratracheal soft tissue thickening. There was stable distal third esophageal wall thickening. There was no evidence of a neoplastic process of the abdomen or pelvis. A circumscribed 1.8 cm oval-shaped low-density nodule in the caudate lobe of the liver appeared stable. It was thought to perhaps have peripheral nodular enhancement suggestive of benign cavernous hemangioma. He continued observation/expectant management. In early August 2018 his had called and reported a significant change in his condition with increased weakness/fatigue and new confusion. MRI of the brain on 09/09/2018 showed evidence of recent right basal ganglia infarct. There was no evidence of metastatic disease. Restaging PET/CT on 09/12/2018 showed tiny subpleural nodules measuring less than 4 mm. There was no evidence of active malignancy. Restaging CT scans on 04/16/2019 showed stable bilateral upper and lower lobe subpleural nodular densities and parenchymal scarring, right apical subpleural scarring, and right superior paratracheal soft tissue thickening. There was severe chronic emphysema. Overall, there was no evidence of disease progression in the chest and no evidence of a neoplastic process of the abdomen or pelvis. A left adrenal nodule appeared stable and there was no liver lesion identified. Repeat head MRI on 04/27/2019 showed no evidence of metastatic disease to the brain. There was evidence of remote left cerebellar and right basal ganglia infarcts and there are mild to moderate chronic microvascular ischemic changes noted. As of his follow-up visit on 07/14/2019 there had been no evidence of recurrence/progression of the lung cancer. However, at that point he had become mildly anemic, and his serum iron studies were consistent with iron deficiency. He was started on an oral iron supplement. He was subsequently found to have a positive stool IFOB. With that finding he was referred to Dr. Dozier. On 08/30/2019 he underwent EGD and colonoscopy. There were no abnormal findings on the EGD. The colonoscopy showed a 2.5 cm sessile polyp in the cecum and a 7 mm sessile polyp at the hepatic flexure in the ascending colon. The ascending colon lesion was completely removed, but the cecal lesion was large enough that it had to be removed in piecemeal. Pathology on the hepatic flexure lesion showed tubular adenoma with low-grade dysplasia. The cecal lesion also showed tubular adenoma but with focal high-grade dysplasia arising in a background of low-grade dysplasia. There was no invasive malignancy identified. There was a focus of high-grade dysplasia extending to an edge of the resection. As of 09/13/2019 there was further decline in his hemoglobin to 7.9 g, and at that point he was given a transfusion of 2 units PRBC. As of his follow-up visit on 10/14/2019 his hemoglobin was back up to 12.4 g, but his serum iron studies and ferritin were still consistent with iron deficiency. He was still having significant fatigue, and he continued to complain of shortness of breath. CT pulmonary angiogram at that time showed no evidence of pulmonary embolus. There were advanced chronic emphysematous changes, but there was no acute pulmonary infiltrate. Small subpleural opacities and parenchymal scarring appeared stable, as did soft tissue thickening in the right paratracheal area. A 7 mm adrenal nodule also appeared stable. During that time he also was seen by Dr. Banerjee and his subsequent cardiac evaluation with echocardiogram and stress test were unrevealing. During subsequent follow-up, he began treatment for COPD, and he was referred to Dr. Fritz for pulmonary consultation. His other medical illnesses include hypertension, coronary artery disease, peripheral arterial disease, and COPD. He underwent coronary artery bypass in November 2011 and he underwent femoropopliteal bypass in March 2012. He had a subsequent redo right femoropopliteal bypass, following which he has remained chronically anticoagulated with warfarin. He apparently also has had a mitral valve replacement. He had previously smoked a pack and half of cigarettes daily for 40 years. He quit smoking more than 10 years ago. INTERIM HISTORY: His chest CT on 04/19/2020 showed chronic emphysema with stable pleural and subpleural nodules. There was no evidence for new or increasing pulmonary nodule or mass. There is no mediastinal or hilar adenopathy noted. A left adrenal nodule appeared stable. There was moderate thickening of the esophagus, possibly related to esophagitis from reflux disease. Restaging CT scans of the chest, abdomen, and pelvis on 03/27/2021 showed moderate chronic emphysematous changes but without acute pulmonary infiltrates. A few subcentimeter noncalcified pulmonary nodules appeared unchanged. There was no mediastinal or hilar lymphadenopathy noted. A low-attenuation lesion in the caudate lobe of the liver adjacent to the IVC was felt to be most likely a cavernous hemangioma, and it appeared unchanged measuring 12 mm. The prostate was noted to be enlarged measuring 4.8 cm. A small distal abdominal aortic aneurysm measuring 2.7 x 2.6 cm appeared unchanged. There was chronic anterior wedging of the T11 vertebral body. Overall, there was no evidence for metastatic disease in the chest, abdomen, or pelvis. With those findings he continued on expectant management. He is seen for a follow-up visit. He has been feeling pretty good generally, though his energy is just so-so. He has limited activity. ECOG score is 2. He says his appetite is usually pretty good. He has not had fever. He sometimes has sweating at night. He has not been having sinus drainage and he does not complain of sore mouth or throat. He has cough productive of clear mucus. He does not complain of shortness of breath or chest pain. He currently has no GI or complaints other than some occasional acid reflux, managed with famotidine as needed. He is not having any significant joint or bone pain, but he does get muscle cramps if he moves wrong. He does not complain of headache or dizziness. He does have ongoing problems with the neuropathy in his hands and feet. Medications: Albuterol 1 Aerosol, solution Inhalation q 4 hours PRN, Atorvastatin Calcium 1 Tablet (of 80 mg) Oral at bedtime, aug betamet 1 (0.05 %) Cream daily PRN, Clindamycin HCl 1 APL (of 1 %) Gel (jelly) Oral PRN, Clopidogrel Bisulfate 1 (75 mg) Tablet Oral daily, Coumadin Tablet Oral Take as Directed, Flonase Allergy Relief 1 Cowgill(s) (of 50 mcg/act) Suspension Nasal daily PRN, Hydrocortisone 1 (2.5 %) Cream Topical PRN, Ketoconazole 1 APL (of 2 %) Cream Topical PRN, Klor-Con 10 1 (10 meq) Tablet, controlled release Oral daily, levoFLOXacin 1 Tablet (of 500 mg) Oral PRN, Levothroid 1 Tablet (of 125 mcg) Oral daily, Lidocaine-Prilocaine 1 APL (of 2.5-2.5 %) Cream Topical PRN, Magnesium 1 Tablet (of 250 mg) Oral daily, Melatonin 1 Capsule Oral at bedtime, Metoprolol Tartrate 0.5 Tablet (of 25 mg) Oral daily, Montelukast Sodium 1 Tablet (of 10 mg) Oral daily, Stiolto Respimat 2 Inhalation (of 2.5-2.5 mcg/act) Aerosol, solution Inhalation daily Allergies: ChloraPrep One Step Vital Signs: Performed on Dec 10, 2021 13:36 Height - 68.00 in Weight - 161.8 lbs (LOW) BSA - 1.87 sq.m BMI - 24.60 Temperature - 97.4 F (LOW) Pulse - 85 /min Respiration - 16 /min BP - 127/78 mm(hg) O2 Sat - 97 % Pain - 0 Fatigue - 7 Physical Examination: Constitutional - He appears somewhat weak generally, Eyes - Sclerae nonicteric. Conjunctivae clear, ENMT - No lesions noted in the oral cavity, Hematologic/Lymphatic - No cervical, clavicular, or axillary adenopathy, Respiratory - Lungs sound clear with diminished air movement bilaterally, Cardiovascular - Heart rhythm is regular. There is a II/ systolic murmur. There is no gallop or rub noted, Abdomen - Soft. Liver and spleen are not enlarged. There is no abdominal mass or ascites noted and there is no inguinal adenopathy, Extremities - No edema, Neurologic - There are no focal neurologic deficits noted. Problem List: 1. Patient has metastatic squamous cell carcinoma of unknown primary, but with clinical evidence of lung cancer. He had a large right-sided mass confluent with the thyroid gland, mediastinal adenopathy, bilateral lung nodules, and a liver lesion at initial presentation in September 2013. 2. Hypertension. 3. Coronary artery disease. 4. Peripheral arterial disease. 5. Cerebral vascular disease. 6. COPD. 7. Hypothyroidism. 8. Iron deficiency anemia. Problems Addressed with this Encounter and Plan: 1. Patient with metastatic squamous cell carcinoma of unknown primary, but with clinical evidence of lung cancer. He had a large right-sided mass confluent with the thyroid gland, mediastinal adenopathy, bilateral lung nodules, and a liver lesion at initial presentation in September 2013. He completed 35 Gy of radiation to the large mass at the level of the thoracic inlet. He was able to receive 2 weeks of carboplatin AUC of 2 with radiation. Systemic chemotherapy with carboplatin AUC of 5 and Abraxane given from January 2014 to May 2014. Restaging imaging with PET/CT after 6 cycles of chemotherapy with a very good partial response. Maintenance therapy Tarceva at 150 mg daily began on 07/11/2014 based on SATURN trial. After 9 months of maintenance therapy he had progression of disease in liver. Second line treatment with nivolumab 3 mg/kg every 2 weeks began on 04/04/2015. Unfortunately repeat CT of the chest abdomen/pelvis on 06/27/2015 after 3 months of treatment showed significant progression of disease in the liver lung and mediastinum. He then restarted systemic chemotherapy with carboplatin/Abraxane on 06/29/2015. Restaging CT of the chest abdomen and pelvis on 09/19/2015 showed almost complete resolution of the liver metastases and decrease in subcarinal lymphadenopathy. Despite dose reductions, his treatment was complicated by progressive cytopenias, and at that point he continued treatment with Abraxane alone. As of his followup visit in June 2016 he had completed 14 cycles of chemotherapy. Restaging CT scans had shown no obvious disease progression. He was having increasing fatigue and neuropathy symptoms, and at that point I had stopped his chemotherapy. He was then followed expectantly. During followup he had problems associated with his underlying COPD and with cerebral vascular disease. He also required treatment for iron deficiency anemia. He had some gradual decline in his activity tolerance/performance status. He now appears to have stabilized clinically. Thus far there has been no evidence of recurrence of the squamous cell carcinoma. He continues on expectant management. I will repeat his laboratory studies with his next port flush. He will be scheduled for a follow-up visit with restaging CT scans in 4 months. 2. He has been on chronic anticoagulation with warfarin. His protime is monitored monthly. Results are being forwarded to Dr. Monroe for his warfarin management. Signed By: Juan Lee M.D. <<Signature on File>>
== END 2021-12-10 12:14 | disposition home or self-care (01) ==
LOC: ONCMED 12:17
PROVIDERS: PCP Family Medicine; Visit Provider Internal Medicine Medical Oncology
DX: Z08 Encounter for follow-up examination after completed treatment for malignant neoplasm (principal); Z85.118 Personal history of other malignant neoplasm of bronchus and lung; I10 Essential (primary) hypertension; I25.10 Atherosclerotic heart disease of native coronary artery without angina pectoris; I73.9 Peripheral vascular disease, unspecified; I67.9 Cerebrovascular disease, unspecified; J44.9 Chronic obstructive pulmonary disease, unspecified; E03.9 Hypothyroidism, unspecified; D50.9 Iron deficiency anemia, unspecified; Z79.899 Other long term (current) drug therapy; Z92.21 Personal history of antineoplastic chemotherapy; Z92.25 Personal history of immunosuppression therapy
CPT/HCPCS: 99214

== ENCOUNTER → 2021-12-24 12:43 | Outpatient (BNVA) | payer MEDICARE, OTHER, SELFPAY | PROVIDERS: PCP Family Medicine; Visit Provider Internal Medicine | DX: Z53.9 Procedure and treatment not carried out, unspecified reason (principal) ==

== ENCOUNTER → 2022-01-04 10:37 | Outpatient (BNVA) | payer MEDICARE, OTHER, SELFPAY | PROVIDERS: PCP Family Medicine; Visit Provider Internal Medicine | DX: Z79.01 Long term (current) use of anticoagulants (principal); Z87.891 Personal history of nicotine dependence; I10 Essential (primary) hypertension; I73.9 Peripheral vascular disease, unspecified; Z95.1 Presence of aortocoronary bypass graft; E78.5 Hyperlipidemia, unspecified; J44.9 Chronic obstructive pulmonary disease, unspecified; I25.10 Atherosclerotic heart disease of native coronary artery without angina pectoris | CPT/HCPCS: 99214 ==

== ENCOUNTER 2022-01-10 13:30 | Outpatient (CLI) | payer MEDICARE, OTHER, SELFPAY ==
[2022-01-10 14:07] LABS: Basophils % 0.4 %; Eosinophils # 0.2 10^3/uL (0.0-0.8); Eosinophils % 2.3 %; Hematocrit 38.4 % (42.0-52.0); Hemoglobin 12.4 g/dL (11.7-16.6); Lymphocytes # 0.9 10^3/uL (0.8-4.8); Lymphocytes % 12.6 %; Mean Corpuscular HGB Conc 32.3 g/dL (30.0-36.0); Mean Corpuscular Hemoglobin 26.2 pg (28.0-34.0); Mean Corpuscular Volume 81.2 fl (80-94); Mean Platelet Volume 10.5 fL (7.4-10.4); Monocytes # 0.8 10^3/uL (0.2-0.9); Monocytes % 10.2 %; Neutrophils # 5.47 10^3/uL (1.8-7.7); Neutrophils % 74.1 %; Nucleated Red Blood Cells % 0 %; Platelet Count 282 10^3/cmm (130-400); Red Blood Count 4.73 10^6/uL (4.1-5.3); Red Cell Distribution Width 15.2 % (12.1-15.1); White Blood Count 7.4 10^3/uL (4.0-10.0)
[2022-01-10 14:26] LABS: INR 1.85 (0.8-1.2)
[2022-01-10 14:45] LABS: Alanine Aminotransferase 35 U/L (0-41); Alkaline Phosphatase 136 IU/L (40-130); Anion Gap 14.4 (5-19); Aspartate Amino Transferase 28 U/L (0-40); Blood Urea Nitrogen 15 mg/dL (8-23); Carbon Dioxide 24 mmol/L (22-29); Chloride 104 mmol/L (98-107); Globulin 2.5 g/dL (1.3-4.6); Glucose 88 mg/dL (65-115); Osmolality Calculated 286 mOsm/kg (285-295); Potassium 4.4 mmol/L (3.5-5.1); Sodium 138 mmol/L (136-145); Thyroid Stimulating Hormone 0.14 uIU/mL (0.27-4.20); Total Bilirubin 0.7 mg/dL (0.15-1.2); Total Protein 6.5 g/dL (6.6-8.7)
== END 2022-01-10 13:31 | disposition home or self-care (01) ==
PROVIDERS: PCP Family Medicine; Visit Provider Internal Medicine Medical Oncology
DX: C80.1 Malignant (primary) neoplasm, unspecified (principal)
CPT/HCPCS: 36591; 80053; 83735; 84443; 85025; 85610

== ENCOUNTER → 2022-01-24 11:34 | Outpatient (BNVA) | payer MEDICARE, OTHER, SELFPAY | PROVIDERS: PCP Family Medicine; Visit Provider Family Medicine | DX: Z86.718 Personal history of other venous thrombosis and embolism (principal) | CPT/HCPCS: 85610 ==

== ENCOUNTER 2022-02-11 13:11 | Oncology outpatient (recurring) (ONCR) | payer MEDICARE, OTHER, SELFPAY ==
[2022-02-11 13:59] LABS: INR 2.52 (0.8-1.2)
== END 2022-02-19 23:59 | disposition home or self-care (01) ==
PROVIDERS: PCP Family Medicine; Visit Provider Internal Medicine Medical Oncology
DX: C80.1 Malignant (primary) neoplasm, unspecified (principal); C78.7 Secondary malignant neoplasm of liver and intrahepatic bile duct; C78.02 Secondary malignant neoplasm of left lung; C77.1 Secondary and unspecified malignant neoplasm of intrathoracic lymph nodes; I25.10 Atherosclerotic heart disease of native coronary artery without angina pectoris; Z95.5 Presence of coronary angioplasty implant and graft; I10 Essential (primary) hypertension; Z45.2 Encounter for adjustment and management of vascular access device; Z92.3 Personal history of irradiation; Z92.21 Personal history of antineoplastic chemotherapy
CPT/HCPCS: 36591; 85610

== ENCOUNTER 2022-03-18 11:07 | Oncology outpatient (recurring) (ONCR) | payer MEDICARE, OTHER, SELFPAY ==
[2022-03-18 12:05] VITALS: BMI 24.8
[2022-03-18 12:34] LABS: Basophils # 0.1 10^3/uL (0.0-0.1); Basophils % 0.8 %; Eosinophils # 0.1 10^3/uL (0.0-0.8); Eosinophils % 1.8 %; Hemoglobin 12.1 g/dL (11.7-16.6); Lymphocytes % 15.9 %; Mean Corpuscular HGB Conc 31.8 g/dL (30.0-36.0); Mean Corpuscular Hemoglobin 24.8 pg (28.0-34.0); Mean Corpuscular Volume 77.9 fl (80-94); Mean Platelet Volume 10.7 fL (7.4-10.4); Monocytes # 0.6 10^3/uL (0.2-0.9); Monocytes % 9.3 %; Neutrophils # 4.46 10^3/uL (1.8-7.7); Neutrophils % 71.9 %; Nucleated Red Blood Cells % 0 %; Platelet Count 260 10^3/cmm (130-400); Red Blood Count 4.88 10^6/uL (4.1-5.3); Red Cell Distribution Width 16.3 % (12.1-15.1); White Blood Count 6.2 10^3/uL (4.0-10.0)
[2022-03-18 12:42] LABS: Alanine Aminotransferase 25 U/L (0-41); Albumin Level 3.8 g/dL (3.5-5.2); Alkaline Phosphatase 133 IU/L (40-130); Anion Gap 12.3 (5-19); Aspartate Amino Transferase 21 U/L (0-40); Blood Urea Nitrogen 25 mg/dL (8-23); Calcium 8.9 mg/dL (8.5-10.5); Carbon Dioxide 25 mmol/L (22-29); Chloride 108 mmol/L (98-107); Globulin 2.8 g/dL (1.3-4.6); Glucose 92 mg/dL (65-115); Osmolality Calculated 296 mOsm/kg (285-295); Potassium 4.3 mmol/L (3.5-5.1); Sodium 141 mmol/L (136-145); Total Bilirubin 0.6 mg/dL (0.15-1.2); Total Protein 6.6 g/dL (6.6-8.7)
== END 2022-03-21 23:59 | disposition home or self-care (01) ==
PROVIDERS: PCP Family Medicine; Visit Provider Internal Medicine Medical Oncology
DX: C80.1 Malignant (primary) neoplasm, unspecified (principal); C78.02 Secondary malignant neoplasm of left lung; Z87.891 Personal history of nicotine dependence; I65.29 Occlusion and stenosis of unspecified carotid artery; Z79.01 Long term (current) use of anticoagulants
CPT/HCPCS: 36591; 80053; 85025; 85610; 99214

== ENCOUNTER → 2022-03-28 08:49 | Outpatient (BNVA) | payer MEDICARE, OTHER, SELFPAY | PROVIDERS: PCP Family Medicine; Visit Provider Internal Medicine Critical Care Medicine | DX: J44.9 Chronic obstructive pulmonary disease, unspecified (principal); C34.90 Malignant neoplasm of unspecified part of unspecified bronchus or lung; Z87.891 Personal history of nicotine dependence; Z85.828 Personal history of other malignant neoplasm of skin | CPT/HCPCS: 99213 ==

== ENCOUNTER → 2022-03-29 10:48 | Outpatient (BNVA) | payer MEDICARE, OTHER, SELFPAY | PROVIDERS: PCP Family Medicine; Visit Provider Podiatrist Foot & Ankle Surgery | DX: L60.8 Other nail disorders (principal) | CPT/HCPCS: 99203 ==

== ENCOUNTER 2022-04-17 13:00 | Oncology outpatient (recurring) (ONCR) | payer MEDICARE, OTHER, SELFPAY ==
--- NOTE | 2022-04-05 13:24 | CT_ITS ---
WS: [id number] CT CHEST, ABDOMEN AND PELVIS WITH CONTRAST HISTORY: RESTAGING TECHNIQUE: Contiguous 5 mm axial imaging performed through the chest, abdomen and pelvis with IV cont rast, oral contrast has been provided. Coronal and sagittal reformats chest. Coronal and sagittal ref ormats through the abdomen and pelvis. All CT scans at [facility] use at least one of these d ose optimization techniques: automated exposure control; mA and/or kV adjustment per patient size (in cludes targeted exams where dose is matched to clinical indication); or iterative reconstruction. CONTRAST: Omnipaque 350; 95 mL IV. DLP: 1505.38 mGy.cm COMPARISON: 04/06/[address]: Severe centrilobular emphysema. Chronic atelectasis or fibrosis medial RIGHT upper lobe. No change in the 5 mm nodule in the anterior RIGHT upper lobe. Several bilateral pulmonary nodules whic h are not calcified scattered throughout the lungs. No progression. 7 mm nodule subpleural RIGHT lowe r lobe is stable. No pneumonia. No pleural effusion. No pneumothorax. Heart size is normal with coron sy artery calcifications. Prior CABG. LEFT subclavian Mediport. Circumferential thickening of the di stal esophagus. There is a foci of air extending into the wall of the esophagus which may be a small penetrating ulcer or diverticulum. This was also present on the prior study without change. Abdomen CT: Normal size liver. Hypoechoic nodule near the caudate. Nodule measures 12 mm and is uncha nged. Normal portal vein. Normal gallbladder. Splenic granulomata. Normal pancreas. Stable nodule lat eral limb of the LEFT adrenal gland measures 1 cm. Moderate atherosclerotic plaque within the aorta. Kidneys are small caliber but enhancing normally. Bilateral low-attenuation masses are likely cysts. No change. No solid mass. Mild aneurysmal dilatation to 2.8 cm. There is extensive calcification begi nning at the bifurcation into the proximal common iliac arteries. Component of stenoses bilaterally b ut greatest on the RIGHT. Near complete occlusion involving the LEFT external iliac artery. No GI tract obstruction. No small bowel obstruction. Diffuse constipation. A few scattered diverticul a. Pelvic CT: Well-distended urinary bladder. Mild prostate enlargement and heterogeneity with central c alcification. No adenopathy. No ascites. Mild anterior wedging of T11 and T12. Stable. No destructive bone lesions. CT/CT chest abd pel w con* IMPRESSION: 1. Advanced chronic emphysematous changes with scattered areas of subcentimete r nodules and scarring. No change. No suspicious mass or adenopathy. 2. Mild aneurysmal dilatation infrarenal aorta to 2.8 cm. 3. No adenopathy or ascites in the abdomen or pelvis. 4. Stenoses involving the common iliac arteries and LEFT external iliac arteri es greater than 50%. 5. Small hiatal hernia with circumferential thickening of the distal esophagea l wall.
[2022-04-05] MEDS: iohexol 350 mg/mL 100 mL Btl IV (15:41)
[2022-04-17 12:59] VITALS: BP 133/73; PULSE 67; RESP 16; TEMP 36.2; O2SAT 97
[2022-04-17 13:46] LABS: INR 2.47 (0.8-1.2)
--- NOTE | 2022-04-17 13:57 | PC.NURSE ---
PT/INR results shown to Dr. Lee and called to pt's . Instructions: Continue taking Coumadin 3 mg MWF, and 4 mg all other days. Recheck in 1 month as scheduled. Pt's Monalisa voiced understanding./lc
== END 2022-04-21 23:59 | disposition home or self-care (01) ==
PROVIDERS: Nurse Practitioner Family; PCP Family Medicine; Visit Provider Internal Medicine Medical Oncology
DX: I65.29 Occlusion and stenosis of unspecified carotid artery (principal); C34.90 Malignant neoplasm of unspecified part of unspecified bronchus or lung; K44.9 Diaphragmatic hernia without obstruction or gangrene
CPT/HCPCS: 36591; 71260; 74177; 85610

== ENCOUNTER 2022-05-17 10:58 | Oncology outpatient (recurring) (ONCR) | payer MEDICARE, OTHER, SELFPAY ==
[2022-05-17 11:34] LABS: INR 1.77 (0.8-1.2)
== END 2022-05-22 23:59 | disposition home or self-care (01) ==
PROVIDERS: Nurse Practitioner Family; PCP Family Medicine; Visit Provider Internal Medicine Medical Oncology
DX: I65.29 Occlusion and stenosis of unspecified carotid artery (principal)
CPT/HCPCS: 36591; 85610

== ENCOUNTER 2022-06-18 11:22 | Oncology outpatient (recurring) (ONCR) | payer MEDICARE, OTHER, SELFPAY ==
[2022-06-17 10:29] LABS: INR 1.73 (0.8-1.2)
== END 2022-06-21 23:59 | disposition home or self-care (01) ==
PROVIDERS: Nurse Practitioner Family; PCP Family Medicine; Visit Provider Internal Medicine Medical Oncology
DX: Z08 Encounter for follow-up examination after completed treatment for malignant neoplasm (principal); Z85.118 Personal history of other malignant neoplasm of bronchus and lung; Z85.79 Personal history of other malignant neoplasms of lymphoid, hematopoietic and related tissues; J44.9 Chronic obstructive pulmonary disease, unspecified; I67.9 Cerebrovascular disease, unspecified; D50.9 Iron deficiency anemia, unspecified; Z79.899 Other long term (current) drug therapy; Z92.21 Personal history of antineoplastic chemotherapy; Z92.3 Personal history of irradiation; Z87.891 Personal history of nicotine dependence
CPT/HCPCS: 36591; 85610; 99214

== ENCOUNTER → 2022-06-24 14:53 | Outpatient (BNVA) | payer MEDICARE, OTHER, SELFPAY | PROVIDERS: PCP Family Medicine; Visit Provider Internal Medicine | DX: I10 Essential (primary) hypertension (principal); I73.9 Peripheral vascular disease, unspecified; Z95.1 Presence of aortocoronary bypass graft; E78.5 Hyperlipidemia, unspecified; J44.9 Chronic obstructive pulmonary disease, unspecified; I25.9 Chronic ischemic heart disease, unspecified; Z87.891 Personal history of nicotine dependence; B35.3 Tinea pedis; L60.8 Other nail disorders | CPT/HCPCS: 99213; 99214 ==

== ENCOUNTER 2022-07-16 13:37 | Oncology outpatient (recurring) (ONCR) | payer MEDICARE, OTHER, SELFPAY ==
[2022-07-16 13:54] VITALS: BP 120/66; PULSE 67; RESP 16; TEMP 36.6; O2SAT 97
[2022-07-16 14:16] LABS: Basophils # 0.1 10^3/uL (0.0-0.1); Basophils % 0.9 %; Eosinophils # 0.1 10^3/uL (0.0-0.8); Eosinophils % 1.5 %; Hemoglobin 12.9 g/dL (11.7-16.6); Lymphocytes # 0.8 10^3/uL (0.8-4.8); Lymphocytes % 12.2 %; Mean Corpuscular HGB Conc 32.3 g/dL (30.0-36.0); Mean Corpuscular Volume 80.6 fl (80-94); Mean Platelet Volume 10.6 fL (7.4-10.4); Monocytes # 0.6 10^3/uL (0.2-0.9); Monocytes % 8.7 %; Neutrophils # 5.22 10^3/uL (1.8-7.7); Neutrophils % 76.4 %; Nucleated Red Blood Cells % 0 %; Platelet Count 272 10^3/cmm (130-400); Red Blood Count 4.96 10^6/uL (4.1-5.3); Red Cell Distribution Width 15.7 % (12.1-15.1); White Blood Count 6.8 10^3/uL (4.0-10.0)
[2022-07-16 14:30] LABS: INR 2.19 (0.8-1.2)
[2022-07-16 14:46] LABS: Alanine Aminotransferase 24 U/L (0-41); Alkaline Phosphatase 144 U/L (40-130); Anion Gap 14.8 (5-19); Aspartate Amino Transferase 19 U/L (0-40); Blood Urea Nitrogen 17 mg/dL (8-23); Calcium 9.3 mg/dL (8.5-10.5); Carbon Dioxide 25 mmol/L (22-29); Chloride 102 mmol/L (98-107); Chol HDL Ratio 4.13 mg/dL (1.0-5.00); Cholesterol 161 mg/dL (0-200); Globulin 2.7 g/dL (1.3-4.6); Glucose 98 mg/dL (65-115); HDL Cholesterol 39 mg/dL (60-100); LDL Cholesterol Calculated 74 mg/dL (50-129); Osmolality Calculated 286 mOsm/kg (285-295); Potassium 4.8 mmol/L (3.5-5.1); Sodium 137 mmol/L (136-145); Thyroid Stimulating Hormone 0.47 uIU/mL (0.27-4.20); Total Bilirubin 0.9 mg/dL (0.15-1.2); Total Protein 6.7 g/dL (6.6-8.7); Triglycerides 239 mg/dL (0-150)
--- NOTE | 2022-07-16 15:19 | PC.NURSE ---
Lab results shown to Dr. Lee. Pt stated he is currently taking Coumadin 4 mg daily, recheck in 1 month. Pt is scheduled. Attempted to call pt/ by phone x2. No answer, unable to leave message. Will attempt to call again tomorrow and will mail results/schedule/lc
== END 2022-07-22 23:59 | disposition home or self-care (01) ==
LOC: ONCMED 13:38
PROVIDERS: Nurse Practitioner Family; PCP Family Medicine; Visit Provider Internal Medicine Medical Oncology
DX: C34.90 Malignant neoplasm of unspecified part of unspecified bronchus or lung (principal); E03.9 Hypothyroidism, unspecified; E78.5 Hyperlipidemia, unspecified
CPT/HCPCS: 36591; 80053; 80061; 84443; 85025; 85610

== ENCOUNTER 2022-08-13 13:50 | Oncology outpatient (recurring) (ONCR) | payer MEDICARE, OTHER, SELFPAY ==
[2022-08-13 15:30] LABS: INR 1.88 (0.8-1.2)
== END 2022-08-21 23:59 | disposition home or self-care (01) ==
PROVIDERS: Nurse Practitioner Family; PCP Family Medicine; Visit Provider Internal Medicine Medical Oncology
DX: I65.29 Occlusion and stenosis of unspecified carotid artery (principal)
CPT/HCPCS: 36591; 85610

== ENCOUNTER 2022-09-10 12:57 | Oncology outpatient (recurring) (ONCR) | payer MEDICARE, OTHER, SELFPAY ==
[2022-09-10 14:07] LABS: INR 1.57 (0.8-1.2)
== END 2022-09-21 23:59 | disposition home or self-care (01) ==
LOC: ONCMED 12:58
PROVIDERS: Nurse Practitioner Family; PCP Family Medicine; Visit Provider Internal Medicine Medical Oncology
DX: I65.29 Occlusion and stenosis of unspecified carotid artery (principal); Z79.899 Other long term (current) drug therapy; Z87.891 Personal history of nicotine dependence
CPT/HCPCS: 36591; 85610

== ENCOUNTER → 2022-09-30 09:45 | Outpatient (BNVA) | payer MEDICARE, OTHER, SELFPAY | PROVIDERS: PCP Family Medicine; Visit Provider Internal Medicine Pulmonary Disease | DX: J44.9 Chronic obstructive pulmonary disease, unspecified (principal); Z87.891 Personal history of nicotine dependence; Z92.21 Personal history of antineoplastic chemotherapy; Z85.118 Personal history of other malignant neoplasm of bronchus and lung | CPT/HCPCS: 99214 ==

== ENCOUNTER 2022-10-11 09:31 | Oncology outpatient (recurring) (ONCR) | payer MEDICARE, OTHER, SELFPAY ==
[2022-10-11 10:16] LABS: INR 2.22 (0.8-1.2)
--- NOTE | 2022-10-11 11:02 | PC.NURSE ---
Dr. Lee reviewed patient's PT INR results. This nurse let Dr. Lee know that the patient is taking Warfarin [address] Lee wants patient to continue the same dosage and check labs again in 1 month. THis nurse called the patient and spoke to his Monalisa and I let her know what the PT INR levels were and that Dr. Lee wants the patient to continue same dosage of Warfarin and check labs in 1 month. Patient's acknowledged understanding and had no other questions.
== END 2022-10-22 23:59 | disposition home or self-care (01) ==
PROVIDERS: PCP Family Medicine; Visit Provider Internal Medicine Medical Oncology
DX: I65.29 Occlusion and stenosis of unspecified carotid artery (principal); Z92.29 Personal history of other drug therapy
CPT/HCPCS: 36591; 85610

== ENCOUNTER 2022-11-08 09:14 | Oncology outpatient (recurring) (ONCR) | payer MEDICARE, OTHER, SELFPAY | END 2022-11-19 23:59 | disposition home or self-care (01) | LOC: ONCMED 09:15 | PROVIDERS: PCP Family Medicine; Visit Provider Internal Medicine Medical Oncology | DX: Z45.2 Encounter for adjustment and management of vascular access device; Z95.828 Presence of other vascular implants and grafts | CPT/HCPCS: 96523 ==

== ENCOUNTER → 2022-11-14 14:41 | Outpatient (BNVA) | payer MEDICARE, OTHER, SELFPAY | PROVIDERS: PCP Family Medicine; Visit Provider Internal Medicine Medical Oncology | DX: I65.29 Occlusion and stenosis of unspecified carotid artery (principal); Z92.29 Personal history of other drug therapy | CPT/HCPCS: 85610 ==

== ENCOUNTER 2022-12-16 10:31 | Oncology outpatient (recurring) (ONCR) | payer MEDICARE, OTHER, SELFPAY ==
[2022-12-16 11:06] LABS: Basophils # 0.1 10^3/uL (0.0-0.1); Basophils % 0.7 %; Eosinophils # 0.1 10^3/uL (0.0-0.8); Hematocrit 40.6 % (42.0-52.0); Hemoglobin 12.7 g/dL (11.7-16.6); Lymphocytes # 0.9 10^3/uL (0.8-4.8); Lymphocytes % 11.4 %; Mean Corpuscular HGB Conc 31.3 g/dL (30.0-36.0); Mean Corpuscular Hemoglobin 25.1 pg (28.0-34.0); Mean Corpuscular Volume 80.4 fl (80-94); Mean Platelet Volume 10.4 fL (7.4-10.4); Monocytes # 0.8 10^3/uL (0.2-0.9); Monocytes % 9.6 %; Neutrophils # 6.37 10^3/uL (1.8-7.7); Neutrophils % 77.1 %; Nucleated Red Blood Cells % 0 %; Platelet Count 274 10^3/cmm (130-400); Red Blood Count 5.05 10^6/uL (4.1-5.3); Red Cell Distribution Width 15.7 % (12.1-15.1); White Blood Count 8.3 10^3/uL (4.0-10.0)
[2022-12-16 11:26] LABS: Alanine Aminotransferase 20 U/L (0-41); Albumin Level 3.9 g/dL (3.5-5.2); Alkaline Phosphatase 136 U/L (40-130); Anion Gap 15.8 (5-19); Aspartate Amino Transferase 20 U/L (0-40); Blood Urea Nitrogen 22 mg/dL (8-23); Calcium 8.7 mg/dL (8.5-10.5); Carbon Dioxide 24 mmol/L (22-29); Chloride 108 mmol/L (98-107); Globulin 2.9 g/dL (1.3-4.6); Glucose 103 mg/dL (65-115); Osmolality Calculated 300 mOsm/kg (285-295); Potassium 4.8 mmol/L (3.5-5.1); Sodium 143 mmol/L (136-145); Total Bilirubin 0.7 mg/dL (0.15-1.2); Total Protein 6.8 g/dL (6.6-8.7)
== END 2022-12-20 23:59 | disposition home or self-care (01) ==
PROVIDERS: Nurse Practitioner Family; PCP Family Medicine; Visit Provider Internal Medicine Medical Oncology
DX: Z08 Encounter for follow-up examination after completed treatment for malignant neoplasm (principal); Z85.118 Personal history of other malignant neoplasm of bronchus and lung; J44.9 Chronic obstructive pulmonary disease, unspecified; I67.9 Cerebrovascular disease, unspecified; D50.9 Iron deficiency anemia, unspecified; Z79.899 Other long term (current) drug therapy; Z87.891 Personal history of nicotine dependence; Z92.21 Personal history of antineoplastic chemotherapy
CPT/HCPCS: 36591; 80053; 85025; 85610; 99213; 99214

== ENCOUNTER → 2022-12-23 12:44 | Outpatient (BNVA) | payer MEDICARE, OTHER, SELFPAY | PROVIDERS: PCP Family Medicine; Visit Provider Podiatrist Foot & Ankle Surgery | DX: I25.10 Atherosclerotic heart disease of native coronary artery without angina pectoris (principal); I10 Essential (primary) hypertension; I73.9 Peripheral vascular disease, unspecified; Z95.1 Presence of aortocoronary bypass graft; E78.5 Hyperlipidemia, unspecified; J44.9 Chronic obstructive pulmonary disease, unspecified; Z87.891 Personal history of nicotine dependence; B35.3 Tinea pedis; L60.8 Other nail disorders | CPT/HCPCS: 99213; 99214 ==

== ENCOUNTER → 2022-12-30 15:24 | Outpatient (BNVA) | payer MEDICARE, OTHER, SELFPAY | PROVIDERS: PCP Family Medicine; Visit Provider Family Medicine | DX: I65.29 Occlusion and stenosis of unspecified carotid artery (principal); I10 Essential (primary) hypertension; E78.5 Hyperlipidemia, unspecified; Z12.5 Encounter for screening for malignant neoplasm of prostate; E03.9 Hypothyroidism, unspecified; Z79.01 Long term (current) use of anticoagulants | CPT/HCPCS: 85610 ==

== ENCOUNTER 2023-01-15 13:27 | Oncology outpatient (recurring) (ONCR) | payer MEDICARE, OTHER, SELFPAY ==
[2023-01-15 14:00] VITALS: BP 98/65; PULSE 87; RESP 16; TEMP 36.3; O2SAT 98
[2023-01-15 14:51] LABS: Chol HDL Ratio 4.22 mg/dL (1.0-5.00); Cholesterol 152 mg/dL (0-200); HDL Cholesterol 36 mg/dL (60-100); LDL Cholesterol Calculated 68 mg/dL (50-129); LDL HDL Ratio 1.89 RATIO (0.00-3.22); Prostate Specific Antigen Scr 6.68 ng/mL (0-4); Thyroid Stimulating Hormone 0.14 uIU/mL (0.27-4.20); Triglycerides 239 mg/dL (0-150)
[2023-01-15 14:58] LABS: INR 1.64 (0.8-1.2)
== END 2023-01-19 23:59 | disposition home or self-care (01) ==
PROVIDERS: Nurse Practitioner Family; PCP Family Medicine; Visit Provider Internal Medicine Medical Oncology
DX: E78.5 Hyperlipidemia, unspecified; I10 Essential (primary) hypertension; I65.29 Occlusion and stenosis of unspecified carotid artery; Z12.5 Encounter for screening for malignant neoplasm of prostate; Z92.29 Personal history of other drug therapy; E03.9 Hypothyroidism, unspecified
CPT/HCPCS: 80061; 84443; 85610; G0103

== ENCOUNTER → 2023-01-29 11:30 | Outpatient (BNVA) | payer MEDICARE, OTHER, SELFPAY | PROVIDERS: PCP Family Medicine; Visit Provider Family Medicine | DX: Z86.718 Personal history of other venous thrombosis and embolism (principal); R97.20 Elevated prostate specific antigen [PSA]; E78.5 Hyperlipidemia, unspecified; E03.9 Hypothyroidism, unspecified; I10 Essential (primary) hypertension | CPT/HCPCS: 85610 ==

== ENCOUNTER 2023-02-13 13:39 | Oncology outpatient (recurring) (ONCR) | payer MEDICARE, OTHER, SELFPAY ==
[2023-02-13 13:15] VITALS: BP 137/62; PULSE 66; RESP 18; TEMP 36.8; O2SAT 97
[2023-02-13 15:10] LABS: Basophils # 0.1 10^3/uL (0.0-0.1); Basophils % 0.7 %; Eosinophils # 0.1 10^3/uL (0.0-0.8); Eosinophils % 1.3 %; Hematocrit 39.2 % (42.0-52.0); Hemoglobin 12.1 g/dL (11.7-16.6); Lymphocytes # 0.8 10^3/uL (0.8-4.8); Lymphocytes % 10.2 %; Mean Corpuscular HGB Conc 30.9 g/dL (30.0-36.0); Mean Corpuscular Hemoglobin 24.7 pg (28.0-34.0); Mean Platelet Volume 10.6 fL (7.4-10.4); Monocytes # 0.7 10^3/uL (0.2-0.9); Monocytes % 7.9 %; Neutrophils # 6.52 10^3/uL (1.8-7.7); Neutrophils % 79.7 %; Nucleated Red Blood Cells % 0 %; Platelet Count 284 10^3/cmm (130-400); Red Cell Distribution Width 15.6 % (12.1-15.1); White Blood Count 8.2 10^3/uL (4.0-10.0)
[2023-02-13 15:32] LABS: INR 2.02 (0.8-1.2)
[2023-02-13 15:42] LABS: Alanine Aminotransferase 21 U/L (0-41); Albumin Level 3.7 g/dL (3.5-5.2); Alkaline Phosphatase 130 U/L (40-130); Anion Gap 14.5 (5-19); Aspartate Amino Transferase 19 U/L (0-40); Blood Urea Nitrogen 16 mg/dL (8-23); Carbon Dioxide 25 mmol/L (22-29); Chloride 104 mmol/L (98-107); Glucose 96 mg/dL (65-115); Osmolality Calculated 289 mOsm/kg (285-295); Potassium 4.5 mmol/L (3.5-5.1); Sodium 139 mmol/L (136-145); Total Bilirubin 0.9 mg/dL (0.15-1.2); Total Protein 6.7 g/dL (6.6-8.7)
== END 2023-02-19 23:59 | disposition home or self-care (01) ==
PROVIDERS: Nurse Practitioner Family; PCP Family Medicine; Visit Provider Internal Medicine Medical Oncology
DX: C77.1 Secondary and unspecified malignant neoplasm of intrathoracic lymph nodes (principal); I65.29 Occlusion and stenosis of unspecified carotid artery; Z92.29 Personal history of other drug therapy
CPT/HCPCS: 80053; 85025; 85610

== ENCOUNTER 2023-03-17 13:24 | Oncology outpatient (recurring) (ONCR) | payer MEDICARE, OTHER, SELFPAY ==
[2023-03-17 13:38] VITALS: BP 110/67; PULSE 71; RESP 16; TEMP 36.6; O2SAT 97
[2023-03-17 14:22] LABS: INR 2.43 (0.8-1.2)
== END 2023-03-21 23:59 | disposition home or self-care (01) ==
PROVIDERS: Nurse Practitioner Family; PCP Family Medicine; Visit Provider Internal Medicine Medical Oncology
DX: I65.29 Occlusion and stenosis of unspecified carotid artery; Z92.29 Personal history of other drug therapy
CPT/HCPCS: 36591; 85610

== ENCOUNTER → 2023-03-31 09:22 | Outpatient (BNVA) | payer MEDICARE, OTHER, SELFPAY | PROVIDERS: PCP Family Medicine; Visit Provider Internal Medicine Pulmonary Disease | DX: J44.9 Chronic obstructive pulmonary disease, unspecified (principal); Z87.891 Personal history of nicotine dependence; Z92.21 Personal history of antineoplastic chemotherapy; Z85.118 Personal history of other malignant neoplasm of bronchus and lung | CPT/HCPCS: 99214 ==

== ENCOUNTER 2023-04-14 08:07 | Outpatient (CLI) | payer MEDICARE, OTHER, SELFPAY ==
--- NOTE | 2023-04-14 09:00 | CT_ITS ---
WS: [id number] CT CHEST, ABDOMEN AND PELVIS WITH CONTRAST HISTORY: restaging TECHNIQUE: Contiguous 5 mm axial imaging performed through the chest, abdomen and pelvis with IV cont rast, oral contrast has been provided. Coronal and sagittal reformats chest. Coronal and sagittal ref ormats through the abdomen and pelvis. All CT scans at [facility] use at least one of these d ose optimization techniques: automated exposure control; mA and/or kV adjustment per patient size (in cludes targeted exams where dose is matched to clinical indication); or iterative reconstruction. CONTRAST: Omnipaque 350; 100 mL IV. DLP: 771.27 mGy.cm COMPARISON: 03/27/2021, 04/05/[address]: Chronic emphysematous changes with scattered opacifications and interstitial thickening. No new or increasing size of nodularity and no mass. No pneumonia. No pericardial or pleural effusions. Moderate atherosclerotic plaque within the thoracic aorta. Normal size pulmonary artery. Heart size is normal. Mild diffuse esophageal thickening with no mass. Prior CABG. No adenopathy. Abdomen CT: Small hiatal hernia. There are 2 blush-like areas of enhancement within the liver which a re probably hemangiomas. Stable over several prior examinations. No solid mass or evidence for metast atic disease. Portal vein is normal. Spleen is normal size. Mildly contracted gallbladder with no adj acent inflammation. No bile duct dilatation. Normal pancreas. Normal RIGHT adrenal gland. Stable 9 mm nodule LEFT adrenal gland. No renal obstruction or solid mass. Atherosclerotic plaque throughout the aorta. Very slight ectasia and dilatation infrarenal aorta. Maximum diameter of 2.6 cm. Moderate kristen que extends into the mesenteric arteries. Small umbilical hernia contains fat only. No GI tract obstruction. Normal small bowel and stomach. No evidence for acute diverticulitis. Mild distal colonic diverticular burden. No ascites or adenopathy. Pelvic CT: No free fluid or adenopathy. Calcifications iliac arteries with components of stenosis. Po rtion of the bypass graft is noted in the RIGHT pelvis. Prostate is enlarged and heterogeneous with a central calcification. Mild anterior wedging of T11 and T12. CT/CT chest abdpel w/*[id number] IMPRESSION: 1. Chronic emphysematous changes throughout the lungs. No new or increasing no dules or mass. 2. No adenopathy within the chest, abdomen or pelvis. 3. Extensive atherosclerotic plaque within the aorta and mesenteric arteries. 4. Hepatic lesions, likely hemangiomas with no increase in size. 5. Small hiatal hernia. 6. Stable LEFT adrenal nodule.
[2023-04-14 09:38] LABS: Blood Urea Nitrogen 18 mg/dL (8-23)
[2023-04-14] MEDS: iohexol 350 mg/mL 500 mL Btl (per mL) IV (09:44)
[2023-04-14] MEDS: iohexol 350 mg/mL 500 mL Btl (per mL) PO (09:44)
== END 2023-04-14 08:08 | disposition home or self-care (01) ==
LOC: RAD 08:12
PROVIDERS: PCP Family Medicine; Visit Provider Nurse Practitioner Family
DX: Z01.89 Encounter for other specified special examinations (principal); I70.0 Atherosclerosis of aorta; K55.1 Chronic vascular disorders of intestine; K76.9 Liver disease, unspecified; K44.9 Diaphragmatic hernia without obstruction or gangrene; E27.9 Disorder of adrenal gland, unspecified
CPT/HCPCS: 71260; 74177; 82565; 84520; Q9967

== ENCOUNTER 2023-04-24 11:36 | Oncology outpatient (recurring) (ONCR) | payer MEDICARE, OTHER, SELFPAY ==
[2023-04-24 12:05] VITALS: BP 113/66; PULSE 71; TEMP 36.2; O2SAT 96
[2023-04-24 12:44] LABS: Basophils # 0.1 10^3/uL (0.0-0.1); Basophils % 0.9 %; Eosinophils # 0.2 10^3/uL (0.0-0.8); Eosinophils % 2.3 %; Hematocrit 38.5 % (42.0-52.0); Hemoglobin 12.1 g/dL (11.7-16.6); Lymphocytes % 14.9 %; Mean Corpuscular HGB Conc 31.4 g/dL (30.0-36.0); Mean Corpuscular Hemoglobin 24.7 pg (28.0-34.0); Mean Corpuscular Volume 78.7 fl (80-94); Mean Platelet Volume 10.6 fL (7.4-10.4); Monocytes # 0.7 10^3/uL (0.2-0.9); Monocytes % 11.3 %; Neutrophils # 4.61 10^3/uL (1.8-7.7); Neutrophils % 70.3 %; Nucleated Red Blood Cells % 0 %; Platelet Count 270 10^3/cmm (130-400); Red Blood Count 4.89 10^6/uL (4.1-5.3); Red Cell Distribution Width 15.6 % (12.1-15.1); White Blood Count 6.6 10^3/uL (4.0-10.0)
[2023-04-24 13:07] LABS: Alanine Aminotransferase 18 U/L (0-41); Albumin Level 3.7 g/dL (3.5-5.2); Alkaline Phosphatase 118 U/L (40-130); Anion Gap 12.5 (5-19); Aspartate Amino Transferase 17 U/L (0-40); Blood Urea Nitrogen 17 mg/dL (8-23); Calcium 8.6 mg/dL (8.5-10.5); Carbon Dioxide 27 mmol/L (22-29); Chloride 103 mmol/L (98-107); Globulin 2.7 g/dL (1.3-4.6); Glucose 91 mg/dL (65-115); Osmolality Calculated 287 mOsm/kg (285-295); Potassium 4.5 mmol/L (3.5-5.1); Sodium 138 mmol/L (136-145); Total Bilirubin 0.8 mg/dL (0.15-1.2); Total Protein 6.4 g/dL (6.6-8.7)
[2023-04-24 13:45] LABS: Iron 38 ug/dL (59-158); Percent Saturation 13.4 % (20-50); Total Iron Binding Capacity 283 mcg/dl; Unsaturated Iron Binding 245 ug/dL (112-347)
[2023-04-24 14:29] LABS: Vitamin B12 294 pg/mL (232-1245)
== END 2023-05-22 23:59 | disposition home or self-care (01) ==
PROVIDERS: PCP Family Medicine; Visit Provider Internal Medicine Medical Oncology
DX: Z85.118 Personal history of other malignant neoplasm of bronchus and lung; J44.9 Chronic obstructive pulmonary disease, unspecified; I67.9 Cerebrovascular disease, unspecified; D50.9 Iron deficiency anemia, unspecified; Z79.899 Other long term (current) drug therapy; Z87.891 Personal history of nicotine dependence; Z92.21 Personal history of antineoplastic chemotherapy; Z08 Encounter for follow-up examination after completed treatment for malignant neoplasm; Z92.3 Personal history of irradiation; Z92.29 Personal history of other drug therapy
CPT/HCPCS: 36591; 80053; 82607; 83540; 83550; 85025; 85610; 99214; J1642

== ENCOUNTER → 2023-05-27 15:34 | Outpatient (BNVA) | payer MEDICARE, OTHER, SELFPAY | PROVIDERS: PCP Family Medicine; Visit Provider Internal Medicine | DX: I10 Essential (primary) hypertension (principal); I73.9 Peripheral vascular disease, unspecified; I25.10 Atherosclerotic heart disease of native coronary artery without angina pectoris; Z95.1 Presence of aortocoronary bypass graft; J44.9 Chronic obstructive pulmonary disease, unspecified; R01.1 Cardiac murmur, unspecified; E78.5 Hyperlipidemia, unspecified; Z87.891 Personal history of nicotine dependence; Z79.01 Long term (current) use of anticoagulants | CPT/HCPCS: 99214 ==

== ENCOUNTER 2023-05-28 13:18 | Oncology outpatient (recurring) (ONCR) | payer MEDICARE, OTHER, SELFPAY ==
[2023-05-28 13:33] VITALS: BP 126/81; PULSE 60; RESP 18; TEMP 36.6; O2SAT 97
[2023-05-28 14:13] LABS: Iron 86 ug/dL (59-158); Percent Saturation 36.1 % (20-50); Total Iron Binding Capacity 238 mcg/dl; Unsaturated Iron Binding 152 ug/dL (112-347)
[2023-05-31 09:16] LABS: Methylmalonic Acid 273 nmol/L (87-318)
== END 2023-06-21 23:59 | disposition home or self-care (01) ==
PROVIDERS: PCP Family Medicine; Visit Provider Internal Medicine Medical Oncology
DX: Z92.29 Personal history of other drug therapy (principal); D64.9 Anemia, unspecified; R79.1 Abnormal coagulation profile
CPT/HCPCS: 36591; 83540; 83550; 83921; 85610; J1642

== ENCOUNTER 2023-06-12 13:16 | Outpatient (CLI) | payer MEDICARE, OTHER, SELFPAY ==
--- NOTE | 2023-06-12 13:30 | USCV_ITS ---
Tru Quarles Age: 77 Gender: M : 1945 Exam Date: 06/12/2023 13:49 Ordering Phys: Baudilio Land M.D ([email or web address]) Technologist: Do Way [place]am Location[place] [facility] [place]ication: SOB BP: 130 / 62 HR: 70 Rhythm: Sinus Technical Quality: Adequate MEASUREMENTS (Male / Female) Normal Values 2D ECHO LV Diastolic Diameter PLAX 3.5 cm 4.2 - 5.9 / 3.9 - 5.3 cm LV Systolic Diameter PLAX 1.7 cm IVS Diastolic Thickness 1.6 cm 0.6 - 1.0 / 0.6 - 0.9 cm IVS Systolic Thickness 2.0 cm LVPW Diastolic Thickness 1.5 cm 0.6 - 1.0 / 0.6 - 0.9 cm LVPW Systolic Thickness 1.5 cm LVOT Diameter 2.0 cm LV Ejection Fraction 2D Teich 84.1 % LV Ejection Fraction MOD 2C 66.0 % LV Ejection Fraction 2C AL 67.7 % LA Diameter 3.0 cm LA Width 3.6 cm LA Height 5.3 cm RA Width 2.8 cm RA Height 4.6 cm Aorta at Sinotubular Diameter 2.5 cm IVC Diameter 0.9 cm M-MODE Aortic Annulus Diameter 2.7 cm LA Ao Ratio MM 1.1 MV E Point Septal Separation 0.7 cm DOPPLER AV Peak Velocity 296.7 cm/s LVOT Peak Velocity 95.0 cm/s AV Area Cont Eq vti 1.3 cm squared AV Area Cont Eq pk 1.0 cm squared MV Peak Velocity 90.0 cm/s MV Area PHT 2.7 cm squared Mitral E to A Ratio 0.7 MV E' Velocity 38.5 cm/s Mitral E to MV E' Ratio 9.1 Mitral E to LV E' Lateral Ratio 8.9 Mitral E to LV E' Septal Ratio 9.3 TR Peak Velocity 147.3 cm/s TR Peak Gradient 8.7 mmHg Right Atrial Pressure 5.0 mmHg Pulmonary Artery Systolic Pressu 13.7 mmHg PV Peak Velocity 120.0 cm/s RV Acceleration Time 0.1 s RV Ejection Time 0.3 s RV AcT/ET 0.3 FINDINGS Left Ventricle Left ventricle is normal in size. LV systolic function is normal with EF of 55 to 60%. No regional wall motion abnormalities are seen. Grade 1 diastolic dysfunction Right Ventricle Grossly normal Right Atrium Normal in size Left Atrium Normal in size Mitral Valve Structurally normal mitral valve. Trace mitral regurgitation. Aortic Valve Aortic valve is thickened. Mild aortic stenosis with aortic valve area 1.27cm2 and mean gradient across aortic valve of 18.5mmHg. Tricuspid Valve Trace tricuspid regurgitation. Insufficient TR jet to evaluate RVSP. Pulmonic Valve Not well visualized. Mild pulmonic regurgitation Pericardium Normal Aorta Normal in size IVC Appears to be normal CONCLUSIONS LV systolic function is normal with EF of 55 to 60%. Grade 1 diastolic dysfunction Trace mitral regurgitation Mild aortic stenosis Trace tricuspid regurgitation Mild pulmonic regurgitation Compared to prior echocardiogram from 2019, mean gradient across aortic valve has increased. Baudilio Land MD (Electronically Signed) Final Date: 22 June 2023 12:40 S
== END 2023-06-12 13:17 | disposition home or self-care (01) ==
PROVIDERS: PCP Family Medicine; Visit Provider Internal Medicine
DX: I08.3 Combined rheumatic disorders of mitral, aortic and tricuspid valves (principal); R01.1 Cardiac murmur, unspecified
CPT/HCPCS: 93306

== ENCOUNTER 2023-06-25 13:45 | Oncology outpatient (recurring) (ONCR) | payer MEDICARE, OTHER, SELFPAY ==
[2023-06-25 14:14] VITALS: BP 101/61; PULSE 83; RESP 18; TEMP 36.5; O2SAT 93
[2023-06-25 14:35] LABS: INR 3.45 (0.8-1.2)
== END 2023-07-22 23:59 | disposition home or self-care (01) ==
PROVIDERS: PCP Family Medicine; Visit Provider Internal Medicine Medical Oncology
DX: Z92.29 Personal history of other drug therapy (principal)
CPT/HCPCS: 36591; 85610

== ENCOUNTER → 2023-06-30 10:50 | Outpatient (BNVA) | payer MEDICARE, OTHER, SELFPAY | PROVIDERS: PCP Family Medicine; Visit Provider Internal Medicine Pulmonary Disease | DX: J44.9 Chronic obstructive pulmonary disease, unspecified (principal); Z85.118 Personal history of other malignant neoplasm of bronchus and lung; Z87.891 Personal history of nicotine dependence | CPT/HCPCS: 99214 ==

== ENCOUNTER 2023-07-08 12:30 | Outpatient (CLI) | payer MEDICARE, OTHER, SELFPAY ==
[2023-07-08 12:57] VITALS: PULSE 76; RESP 18; O2SAT 96
[2023-07-08 13:01] VITALS: PULSE 68
[2023-07-08] MEDS: albuterol 2.5 mg/3 mL Neb INHALATION (13:01)
== END 2023-07-08 12:31 | disposition home or self-care (01) ==
LOC: RT 12:31
PROVIDERS: PCP Family Medicine; Visit Provider Internal Medicine Pulmonary Disease
DX: J44.9 Chronic obstructive pulmonary disease, unspecified (principal)
CPT/HCPCS: 94060; 94618; 94726; 94729; J7613

== ENCOUNTER 2023-07-23 14:24 | Oncology outpatient (recurring) (ONCR) | payer MEDICARE, OTHER, SELFPAY ==
[2023-07-23 14:54] VITALS: BP 137/71; PULSE 70; RESP 16; TEMP 36.5; O2SAT 96
[2023-07-23 15:07] LABS: Basophils # 0.1 10^3/uL (0.0-0.1); Basophils % 0.8 %; Eosinophils # 0.1 10^3/uL (0.0-0.8); Eosinophils % 1.8 %; Hematocrit 44.2 % (37-53); Lymphocytes # 0.9 10^3/uL (0.8-4.8); Lymphocytes % 12.5 %; Mean Corpuscular HGB Conc 33.9 g/dL (30-55); Mean Corpuscular Hemoglobin 28.8 pg (27-33); Mean Platelet Volume 10.2 fL (7.4-10.4); Monocytes # 0.7 10^3/uL (0.2-0.9); Monocytes % 9.9 %; Neutrophils # 5.49 10^3/uL (1.8-7.7); Neutrophils % 74.9 %; Nucleated Red Blood Cells % 0 %; Platelet Count 242 10^3/cmm (157-399); Red Cell Distribution Width 16.2 % (12.1-15.1); White Blood Count 7.34 10^3/uL (3.29-11.43)
[2023-07-23 15:25] LABS: INR 2.34 (0.8-1.2)
[2023-07-23 15:29] LABS: Alanine Aminotransferase 17 U/L (0-41); Albumin Level 3.8 g/dL (3.5-5.2); Alkaline Phosphatase 125 U/L (40-130); Anion Gap 13.2 (5-19); Aspartate Amino Transferase 18 U/L (0-40); Blood Urea Nitrogen 17 mg/dL (8-23); Carbon Dioxide 26 mmol/L (22-29); Chloride 106 mmol/L (98-107); Globulin 2.9 g/dL (1.3-4.6); Glucose 113 mg/dL (65-115); Iron 56 ug/dL (59-158); Osmolality Calculated 294 mOsm/kg (285-295); Percent Saturation 26.9 % (20-50); Potassium 4.2 mmol/L (3.5-5.1); Sodium 141 mmol/L (136-145); Total Iron Binding Capacity 208 mcg/dl; Total Protein 6.7 g/dL (6.6-8.7); Unsaturated Iron Binding 152 ug/dL (112-347)
== END 2023-08-21 23:59 | disposition home or self-care (01) ==
PROVIDERS: PCP Family Medicine; Visit Provider Internal Medicine Medical Oncology
DX: Z92.29 Personal history of other drug therapy (principal); I65.29 Occlusion and stenosis of unspecified carotid artery; C77.1 Secondary and unspecified malignant neoplasm of intrathoracic lymph nodes; D50.0 Iron deficiency anemia secondary to blood loss (chronic); Z79.899 Other long term (current) drug therapy
CPT/HCPCS: 36591; 80053; 83540; 83550; 85025; 85610; 99214

== ENCOUNTER 2023-08-27 14:14 | Oncology outpatient (recurring) (ONCR) | payer MEDICARE, OTHER, SELFPAY ==
[2023-08-27 14:38] VITALS: BP 156/82; PULSE 55; RESP 16; TEMP 36.6; O2SAT 96
[2023-08-27 15:32] LABS: INR 2.51 (0.8-1.2)
== END 2023-09-21 23:59 | disposition home or self-care (01) ==
PROVIDERS: Nurse Practitioner Family; PCP Family Medicine; Visit Provider Internal Medicine Medical Oncology
DX: I65.29 Occlusion and stenosis of unspecified carotid artery; Z79.01 Long term (current) use of anticoagulants
CPT/HCPCS: 36591; 85610; J1642

== ENCOUNTER → 2023-10-23 10:42 | Outpatient (BNVA) | payer MEDICARE, OTHER, SELFPAY | PROVIDERS: PCP Family Medicine; Visit Provider Internal Medicine Pulmonary Disease | DX: J44.9 Chronic obstructive pulmonary disease, unspecified (principal); Z12.2 Encounter for screening for malignant neoplasm of respiratory organs | CPT/HCPCS: 99214 ==

== ENCOUNTER 2023-10-29 14:15 | Oncology outpatient (recurring) (ONCR) | payer MEDICARE, OTHER, SELFPAY ==
[2023-10-29 14:37] LABS: Basophils # 0.1 10^3/uL (0.0-0.1); Eosinophils # 0.2 10^3/uL (0.0-0.8); Eosinophils % 2.8 %; Lymphocytes # 1.2 10^3/uL (0.8-4.8); Lymphocytes % 20.1 %; Mean Corpuscular HGB Conc 34.1 g/dL (30-55); Mean Corpuscular Hemoglobin 30.5 pg (27-33); Mean Corpuscular Volume 89.5 fl (82-101); Mean Platelet Volume 10.3 fL (7.4-10.4); Monocytes # 0.5 10^3/uL (0.2-0.9); Monocytes % 7.6 %; Neutrophils # 4.22 10^3/uL (1.8-7.7); Neutrophils % 68.5 %; Nucleated Red Blood Cells % 0 %; Platelet Count 225 10^3/cmm (157-399); Red Blood Count 5.14 10^6/uL (3.85-5.65); Red Cell Distribution Width 13.3 % (12.1-15.1); White Blood Count 6.16 10^3/uL (3.29-11.43)
[2023-10-29 14:56] LABS: Alanine Aminotransferase 17 U/L (0-41); Albumin Level 3.7 g/dL (3.5-5.2); Alkaline Phosphatase 109 U/L (40-130); Anion Gap 11.5 (5-19); Aspartate Amino Transferase 18 U/L (0-40); Blood Urea Nitrogen 19 mg/dL (8-23); Calcium 8.9 mg/dL (8.5-10.5); Carbon Dioxide 28 mmol/L (22-29); Chloride 101 mmol/L (98-107); Ferritin 66 ng/mL (30-400); Globulin 3.2 g/dL (1.3-4.6); Glucose 112 mg/dL (65-115); Iron 92 ug/dL (59-158); Osmolality Calculated 285 mOsm/kg (285-295); Percent Saturation 41.2 % (20-50); Potassium 4.5 mmol/L (3.5-5.1); Sodium 136 mmol/L (136-145); Total Iron Binding Capacity 223 mcg/dl; Total Protein 6.9 g/dL (6.6-8.7); Unsaturated Iron Binding 131 ug/dL (112-347)
[2023-10-29 14:58] LABS: INR 2.07 (0.8-1.2)
== END 2023-11-20 23:59 | disposition home or self-care (01) ==
LOC: ONCMED 14:16
PROVIDERS: Nurse Practitioner Family; PCP Family Medicine; Visit Provider Internal Medicine Medical Oncology
DX: I65.29 Occlusion and stenosis of unspecified carotid artery; C77.1 Secondary and unspecified malignant neoplasm of intrathoracic lymph nodes; D50.0 Iron deficiency anemia secondary to blood loss (chronic); Z79.01 Long term (current) use of anticoagulants
CPT/HCPCS: 36591; 80053; 82728; 83540; 83550; 85025; 85610; J1642

== ENCOUNTER → 2023-11-25 15:24 | Outpatient (BNVA) | payer MEDICARE, OTHER, SELFPAY | PROVIDERS: PCP Family Medicine; Visit Provider Internal Medicine | DX: I10 Essential (primary) hypertension (principal); I73.9 Peripheral vascular disease, unspecified; I25.10 Atherosclerotic heart disease of native coronary artery without angina pectoris; Z95.1 Presence of aortocoronary bypass graft; E78.5 Hyperlipidemia, unspecified; J44.9 Chronic obstructive pulmonary disease, unspecified; Z87.891 Personal history of nicotine dependence | CPT/HCPCS: 99214 ==

== ENCOUNTER 2023-11-26 13:20 | Oncology outpatient (recurring) (ONCR) | payer MEDICARE, OTHER, SELFPAY ==
[2023-11-26 13:39] LABS: Basophils % 0.7 %; Eosinophils # 0.1 10^3/uL (0.0-0.8); Eosinophils % 2.6 %; Hematocrit 44.9 % (37-53); Lymphocytes # 0.9 10^3/uL (0.8-4.8); Lymphocytes % 16.4 %; Mean Corpuscular HGB Conc 34.5 g/dL (30-55); Mean Corpuscular Hemoglobin 30.8 pg (27-33); Mean Corpuscular Volume 89.1 fl (82-101); Monocytes # 0.5 10^3/uL (0.2-0.9); Monocytes % 8.4 %; Neutrophils # 3.93 10^3/uL (1.8-7.7); Neutrophils % 71.7 %; Nucleated Red Blood Cells % 0 %; Platelet Count 226 10^3/cmm (157-399); Red Blood Count 5.04 10^6/uL (3.85-5.65); Red Cell Distribution Width 13.3 % (12.1-15.1); White Blood Count 5.48 10^3/uL (3.29-11.43)
[2023-11-26 13:59] LABS: Alanine Aminotransferase 18 U/L (0-41); Albumin Level 3.7 g/dL (3.5-5.2); Alkaline Phosphatase 105 U/L (40-130); Anion Gap 12.3 (5-19); Aspartate Amino Transferase 17 U/L (0-40); Blood Urea Nitrogen 25 mg/dL (8-23); Calcium 8.3 mg/dL (8.5-10.5); Carbon Dioxide 27 mmol/L (22-29); Chloride 104 mmol/L (98-107); Glucose 124 mg/dL (65-115); Osmolality Calculated 294 mOsm/kg (285-295); Potassium 4.3 mmol/L (3.5-5.1); Sodium 139 mmol/L (136-145); Total Protein 6.7 g/dL (6.6-8.7)
[2023-11-26 16:29] LABS: Free T4 Free Thyroxine 1.31 ng/dL (0.82-1.77); Thyroid Stimulating Hormone 2.08 uIU/mL (0.27-4.20)
== END 2023-12-21 23:59 | disposition home or self-care (01) ==
PROVIDERS: Nurse Practitioner Family; PCP Family Medicine; Visit Provider Internal Medicine Medical Oncology
DX: C77.1 Secondary and unspecified malignant neoplasm of intrathoracic lymph nodes (principal); D50.0 Iron deficiency anemia secondary to blood loss (chronic); I65.29 Occlusion and stenosis of unspecified carotid artery; Z79.01 Long term (current) use of anticoagulants; Z95.828 Presence of other vascular implants and grafts
CPT/HCPCS: 36591; 80053; 84439; 84443; 85025; 99214; J1642

== ENCOUNTER → 2023-11-27 13:41 | Outpatient (BNVA) | payer MEDICARE, OTHER, SELFPAY | PROVIDERS: PCP Family Medicine; Visit Provider Internal Medicine Medical Oncology | DX: Z86.718 Personal history of other venous thrombosis and embolism (principal); D50.0 Iron deficiency anemia secondary to blood loss (chronic); Z92.29 Personal history of other drug therapy | CPT/HCPCS: 82728; 83550; 85025; 85610 ==

== ENCOUNTER 2024-01-01 08:55 | Oncology outpatient (recurring) (ONCR) | payer MEDICARE, OTHER, SELFPAY ==
[2024-01-01 09:20] LABS: Basophils # 0.1 10^3/uL (0.0-0.1); Basophils % 0.9 %; Eosinophils # 0.2 10^3/uL (0.0-0.8); Eosinophils % 2.3 %; Hematocrit 45.5 % (37-53); Lymphocytes # 1.1 10^3/uL (0.8-4.8); Lymphocytes % 16.8 %; Mean Corpuscular HGB Conc 34.1 g/dL (30-55); Mean Corpuscular Hemoglobin 30.9 pg (27-33); Mean Corpuscular Volume 90.8 fl (82-101); Mean Platelet Volume 10.1 fL (7.4-10.4); Monocytes # 0.6 10^3/uL (0.2-0.9); Monocytes % 8.7 %; Neutrophils # 4.57 10^3/uL (1.8-7.7); Nucleated Red Blood Cells % 0 %; Platelet Count 224 10^3/cmm (157-399); Red Blood Count 5.01 10^6/uL (3.85-5.65); Red Cell Distribution Width 13.3 % (12.1-15.1); White Blood Count 6.44 10^3/uL (3.29-11.43)
[2024-01-01 09:34] LABS: INR 1.99 (0.8-1.2)
[2024-01-01 09:39] LABS: Alanine Aminotransferase 21 U/L (0-41); Albumin Level 3.8 g/dL (3.5-5.2); Alkaline Phosphatase 108 U/L (40-130); Anion Gap 13.3 (5-19); Aspartate Amino Transferase 18 U/L (0-40); Blood Urea Nitrogen 28 mg/dL (8-23); Calcium 8.9 mg/dL (8.5-10.5); Carbon Dioxide 25 mmol/L (22-29); Chloride 108 mmol/L (98-107); Globulin 2.9 g/dL (1.3-4.6); Glucose 98 mg/dL (65-115); Osmolality Calculated 299 mOsm/kg (285-295); Potassium 4.3 mmol/L (3.5-5.1); Sodium 142 mmol/L (136-145); Total Protein 6.7 g/dL (6.6-8.7)
== END 2024-01-20 23:59 | disposition home or self-care (01) ==
PROVIDERS: Nurse Practitioner Family; PCP Family Medicine; Visit Provider Internal Medicine Medical Oncology
DX: C78.02 Secondary malignant neoplasm of left lung (principal); I65.29 Occlusion and stenosis of unspecified carotid artery; Z92.29 Personal history of other drug therapy
CPT/HCPCS: 36591; 80053; 85025; 85610

== ENCOUNTER 2024-01-30 11:03 | Oncology outpatient (recurring) (ONCR) | payer MEDICARE, OTHER, SELFPAY ==
[2024-01-30 11:52] LABS: Basophils % 0.6 %; Eosinophils # 0.2 10^3/uL (0.0-0.8); Eosinophils % 2.4 %; Hematocrit 46.2 % (37-53); Lymphocytes # 1.2 10^3/uL (0.8-4.8); Lymphocytes % 17.3 %; Mean Corpuscular Hemoglobin 30.5 pg (27-33); Mean Corpuscular Volume 89.7 fl (82-101); Monocytes # 0.5 10^3/uL (0.2-0.9); Monocytes % 7.4 %; Neutrophils # 4.78 10^3/uL (1.8-7.7); Nucleated Red Blood Cells % 0 %; Platelet Count 235 10^3/cmm (157-399); Red Blood Count 5.15 10^6/uL (3.85-5.65); Red Cell Distribution Width 13.5 % (12.1-15.1); White Blood Count 6.64 10^3/uL (3.29-11.43)
[2024-01-30 12:07] LABS: INR 1.94 (0.8-1.2)
[2024-01-30 12:15] LABS: Alanine Aminotransferase 19 U/L (0-41); Alkaline Phosphatase 131 U/L (40-130); Anion Gap 14.5 (5-19); Aspartate Amino Transferase 18 U/L (0-40); Blood Urea Nitrogen 19 mg/dL (8-23); Calcium 8.4 mg/dL (8.5-10.5); Carbon Dioxide 26 mmol/L (22-29); Chloride 104 mmol/L (98-107); Globulin 3.4 g/dL (1.3-4.6); Glucose 87 mg/dL (65-115); Osmolality Calculated 292 mOsm/kg (285-295); Potassium 4.5 mmol/L (3.5-5.1); Sodium 140 mmol/L (136-145); Total Bilirubin 1.4 mg/dL (0.15-1.2); Total Protein 7.4 g/dL (6.6-8.7)
== END 2024-02-20 23:59 | disposition home or self-care (01) ==
LOC: ONCMED 11:03
PROVIDERS: Nurse Practitioner Family; PCP Family Medicine; Visit Provider Internal Medicine Medical Oncology
DX: C78.02 Secondary malignant neoplasm of left lung (principal); D50.0 Iron deficiency anemia secondary to blood loss (chronic); C77.1 Secondary and unspecified malignant neoplasm of intrathoracic lymph nodes; Z79.01 Long term (current) use of anticoagulants
CPT/HCPCS: 36591; 80053; 85025; 85610

== ENCOUNTER 2024-02-26 11:14 | Oncology outpatient (recurring) (ONCR) | payer MEDICARE, OTHER, SELFPAY ==
[2024-02-26 14:16] LABS: Basophils % 0.6 %; Eosinophils # 0.2 10^3/uL (0.0-0.8); Eosinophils % 2.3 %; Hematocrit 45.4 % (37-53); Lymphocytes % 13.9 %; Mean Corpuscular HGB Conc 33.5 g/dL (30-55); Mean Corpuscular Volume 89.5 fl (82-101); Mean Platelet Volume 10.2 fL (7.4-10.4); Monocytes # 0.7 10^3/uL (0.2-0.9); Monocytes % 9.8 %; Neutrophils # 5.07 10^3/uL (1.8-7.7); Neutrophils % 73.3 %; Nucleated Red Blood Cells % 0 %; Platelet Count 227 10^3/cmm (157-399); Red Blood Count 5.07 10^6/uL (3.85-5.65); Red Cell Distribution Width 13.3 % (12.1-15.1); White Blood Count 6.92 10^3/uL (3.29-11.43)
[2024-02-26 14:52] LABS: Alanine Aminotransferase 20 U/L (0-41); Albumin Level 3.8 g/dL (3.5-5.2); Alkaline Phosphatase 117 U/L (40-130); Anion Gap 13.5 (5-19); Aspartate Amino Transferase 18 U/L (0-40); Blood Urea Nitrogen 19 mg/dL (8-23); Carbon Dioxide 25 mmol/L (22-29); Chloride 106 mmol/L (98-107); Chol HDL Ratio 4.74 mg/dL (1.0-5.00); Cholesterol 166 mg/dL (0-200); Creatinine Clr Calc Pharmacy 61.1193; Ferritin 92 ng/mL (30-400); Globulin 3.1 g/dL (1.3-4.6); Glucose 83 mg/dL (65-115); HDL Cholesterol 35 mg/dL (60-100); Iron 73 ug/dL (59-158); LDL Cholesterol Calculated 86 mg/dL (50-129); LDL HDL Ratio 2.46 RATIO (0.00-3.22); Osmolality Calculated 291 mOsm/kg (285-295); Percent Saturation 35.6 % (20-50); Potassium 4.5 mmol/L (3.5-5.1); Prostate Specific Antigen Scr 1.11 ng/mL (0-4); Sodium 140 mmol/L (136-145); Total Iron Binding Capacity 205 mcg/dl; Total Protein 6.9 g/dL (6.6-8.7); Triglycerides 227 mg/dL (0-150); Unsaturated Iron Binding 132 ug/dL (112-347)
[2024-02-26 15:02] LABS: INR 1.61 (0.8-1.2)
== END 2024-03-21 23:59 | disposition home or self-care (01) ==
PROVIDERS: Nurse Practitioner Family; PCP Family Medicine; Visit Provider Internal Medicine Medical Oncology
DX: C78.02 Secondary malignant neoplasm of left lung (principal); D50.0 Iron deficiency anemia secondary to blood loss (chronic); C77.1 Secondary and unspecified malignant neoplasm of intrathoracic lymph nodes; Z79.01 Long term (current) use of anticoagulants
CPT/HCPCS: 36591; 80053; 80061; 82728; 83540; 83550; 85025; 85610; 99214; G0103

== ENCOUNTER 2024-03-29 10:17 | Oncology outpatient (recurring) (ONCR) | payer MEDICARE, OTHER, SELFPAY ==
[2024-03-29] MEDS: iohexol 350 mg/mL 500 mL Btl (per mL) PO (11:03)
[2024-03-29] MEDS: iohexol 350 mg/mL 500 mL Btl (per mL) IV (11:47)
--- NOTE | 2024-03-29 12:00 | CTR_ITS ---
PROCEDURE INFORMATION: Exam: CT Chest With Contrast; Diagnostic Exam date and time: 03/29/2024 11:40 AM Age: 78 years old Clinical indication: Condition or disease; Lung condition and disease; Cancer of the lung; Bilateral; Unspecified; Primary cancer: Lung cancer; Prior surgery; Surgery date: 6+ months; Surgery type: Port, heart; Additional info: Surveillance TECHNIQUE: Imaging protocol: Diagnostic computed tomography of the chest with contrast. Radiation optimization: All CT scans at this facility use at least one of these dose optimization techniques: automated exposure control; mA and/or kV adjustment per patient size (includes targeted exams where dose is matched to clinical indication); or iterative reconstruction. Contrast material: OMNI 350; Contrast volume: 100 ml; Contrast route: INTRAVENOUS (IV); COMPARISON: CT chest abdpel w/*[id number] 04/14/2023 9:38 AM RADIATION DOSE METRICS: Total DLP (mGy-cm): 782.07 FINDINGS: Tubes, catheters and devices: Infusion port enters from the left and terminates near the atrial caval junction. Lungs: Emphysematous COPD. Mild interstitial fibrosis. Mild right apical pleural and parenchymal fibrosis. Pleural spaces: See Lungs finding. Heart: Unremarkable. No cardiomegaly. No pericardial effusion. Esophagus: Slight thickening of the wall of the distal esophagus suggests gastroesophageal reflux. Lymph nodes: Calcified central lymph nodes. Vasculature: Unremarkable. No aortic aneurysm. Diaphragm: Small hiatal hernia. Bones/joints: Unremarkable. No acute fracture. Soft tissues: Unremarkable. PROCEDURE INFORMATION: Exam: CT Abdomen And Pelvis With Contrast Exam date and time: 03/29/2024 11:40 AM Age: 78 years old Clinical indication: Condition or disease; Lung condition and disease; Cancer of the lung; Bilateral; Unspecified; Primary cancer: Lung cancer; Prior surgery; Surgery date: 6+ months; Surgery type: Port, heart; Additional info: Surveillance TECHNIQUE: Imaging protocol: Computed tomography of the abdomen and pelvis with contrast. Radiation optimization: All CT scans at this facility use at least one of these dose optimization techniques: automated exposure control; mA and/or kV adjustment per patient size (includes targeted exams where dose is matched to clinical indication); or iterative reconstruction. Contrast material: OMNI 350; Contrast volume: 100 ml; Contrast route: INTRAVENOUS (IV); COMPARISON: CT chest abdpel w/*[id number] 04/14/2023 9:38 AM RADIATION DOSE METRICS: Total DLP (mGy-cm): 782.07 FINDINGS: Liver: Stable hepatic cyst. Gallbladder and biliary ducts: Normal. No calcified stones. No ductal dilation. Pancreas: Normal. No ductal dilation. Spleen: Normal. No splenomegaly. Adrenal glands: Stable 9 mm nodule in the lateral limb of the left adrenal. Kidneys and ureters: Normal. No hydronephrosis. Stomach and bowel: Unremarkable. No obstruction. No mucosal thickening. Appendix: No evidence of appendicitis. Intraperitoneal space: Unremarkable. No free air. No significant fluid collection. Vasculature: Unremarkable. No abdominal aortic aneurysm. Lymph nodes: Unremarkable. No enlarged lymph nodes. Urinary bladder: Unremarkable as visualized. Reproductive: Unremarkable as visualized. Bones/joints: Unremarkable. No acute fracture. Soft tissues: Unremarkable. CT/CT chest abdpel w/*[id number] IMPRESSION: No acute intrathoracic pathology. IMPRESSION: No acute subdiaphragmatic pathology.
== END 2024-04-21 23:59 | disposition home or self-care (01) ==
LOC: ONCMED 10:17 → RAD 10:32 → ONCMED 10:33
PROVIDERS: PCP Family Medicine; Visit Provider Nurse Practitioner Family
DX: C77.1 Secondary and unspecified malignant neoplasm of intrathoracic lymph nodes
CPT/HCPCS: 71260; 74177; 96523; Q9967

== ENCOUNTER → 2024-04-01 14:02 | Outpatient (BNVA) | payer MEDICARE, OTHER, SELFPAY | PROVIDERS: PCP Family Medicine; Visit Provider Nurse Practitioner Family | DX: D50.0 Iron deficiency anemia secondary to blood loss (chronic) (principal) | CPT/HCPCS: 85610 ==

== ENCOUNTER 2024-04-28 14:16 | Oncology outpatient (recurring) (ONCR) | payer MEDICARE, OTHER, SELFPAY ==
[2024-04-28 15:14] LABS: INR 2.24 (0.8-1.2)
== END 2024-05-22 23:55 | disposition home or self-care (01) ==
PROVIDERS: PCP Family Medicine; Visit Provider Nurse Practitioner Family
DX: D50.0 Iron deficiency anemia secondary to blood loss (chronic) (principal)
CPT/HCPCS: 36591; 85610

== ENCOUNTER → 2024-05-27 12:28 | Outpatient (BNVA) | payer MEDICARE, OTHER, SELFPAY | PROVIDERS: PCP Family Medicine; Visit Provider Internal Medicine Critical Care Medicine | DX: R06.02 Shortness of breath (principal); J44.9 Chronic obstructive pulmonary disease, unspecified; C78.02 Secondary malignant neoplasm of left lung; Z71.89 Other specified counseling | CPT/HCPCS: 99214 ==

== ENCOUNTER 2024-06-01 11:21 | Oncology outpatient (recurring) (ONCR) | payer MEDICARE, OTHER, SELFPAY ==
[2024-06-01 12:31] LABS: Basophils % 0.7 %; Eosinophils # 0.1 10^3/uL (0.0-0.8); Eosinophils % 1.8 %; Hematocrit 44.4 % (37-53); Lymphocytes # 0.8 10^3/uL (0.8-4.8); Lymphocytes % 14.2 %; Mean Corpuscular HGB Conc 34.5 g/dL (30-55); Mean Corpuscular Hemoglobin 30.3 pg (27-33); Mean Corpuscular Volume 87.9 fl (82-101); Mean Platelet Volume 9.8 fL (7.4-10.4); Monocytes # 0.4 10^3/uL (0.2-0.9); Monocytes % 6.7 %; Neutrophils # 4.13 10^3/uL (1.8-7.7); Neutrophils % 76.4 %; Nucleated Red Blood Cells % 0 %; Platelet Count 215 10^3/cmm (157-399); Red Blood Count 5.05 10^6/uL (3.85-5.65); Red Cell Distribution Width 13.6 % (12.1-15.1); White Blood Count 5.41 10^3/uL (3.29-11.43)
[2024-06-01 12:47] LABS: INR 2.32 (0.8-1.2)
[2024-06-01 12:49] LABS: Albumin Level 3.9 g/dL (3.5-5.2); Alkaline Phosphatase 112 U/L (40-130); Anion Gap 12.3 (5-19); Aspartate Amino Transferase 18 U/L (0-40); Blood Urea Nitrogen 21 mg/dL (8-23); Calcium 8.6 mg/dL (8.5-10.5); Carbon Dioxide 26 mmol/L (22-29); Chloride 104 mmol/L (98-107); Ferritin 90 ng/mL (30-400); Globulin 3.1 g/dL (1.3-4.6); Glucose 137 mg/dL (65-115); Iron 83 ug/dL (59-158); Osmolality Calculated 291 mOsm/kg (285-295); Percent Saturation 43.4 % (20-50); Potassium 4.3 mmol/L (3.5-5.1); Sodium 138 mmol/L (136-145); Total Iron Binding Capacity 191 mcg/dl; Unsaturated Iron Binding 108 ug/dL (112-347)
[2024-06-01 13:00] LABS: Alanine Aminotransferase 18 U/L (0-41)
== END 2024-06-21 23:59 | disposition home or self-care (01) ==
PROVIDERS: PCP Family Medicine; Visit Provider Nurse Practitioner Family
DX: I25.10 Atherosclerotic heart disease of native coronary artery without angina pectoris; I10 Essential (primary) hypertension; I73.9 Peripheral vascular disease, unspecified; Z95.1 Presence of aortocoronary bypass graft; E78.5 Hyperlipidemia, unspecified; J44.9 Chronic obstructive pulmonary disease, unspecified; Z87.891 Personal history of nicotine dependence; Z79.01 Long term (current) use of anticoagulants; R13.10 Dysphagia, unspecified; C77.1 Secondary and unspecified malignant neoplasm of intrathoracic lymph nodes; D64.9 Anemia, unspecified; C80.1 Malignant (primary) neoplasm, unspecified; C78.02 Secondary malignant neoplasm of left lung; Z92.3 Personal history of irradiation
CPT/HCPCS: 36591; 80053; 82728; 83540; 83550; 85025; 85610; 99214

== ENCOUNTER 2024-06-22 10:12 | Outpatient (CLI) | payer MEDICARE, OTHER, SELFPAY ==
--- NOTE | 2024-06-22 11:00 | FL_ITS ---
WS: [id number] Exam: FL barium swallow modifd [id number] Date/Time of Exam: 06/22/2024 10:33 AM Reason For Exam: Fluoroscopy time: 4min [id number] minutes # of spot films: 1 Modified barium swallow was performed in conjunction with the speech therapy service. Oropharyngeal phase of swallowing was grossly normal. There was mild penetration of thin liquid bariu m into the laryngeal inlet. The patient tolerated the remaining barium mixture foodstuffs without pen etration or aspiration. The patient swallowed a barium tablet without difficulty however the tablet w as retained in the distal esophagus. This might be due to distal esophageal spasm or stricture. Under lying mass might also be considered. No aspiration was observed. Recommendations: Barium swallow test is recommended for further work-up. A separate report and recommendations will follow from the speech therapy service. FL/FL barium swallow modifd [id number] IMPRESSION: 1. Mild penetration into the laryngeal inlet when the patient ingested thin liq uid barium. No aspiration noted. 2. The barium tablet was retained in the distal esophagus just above the GE shweta ction. This could be secondary to spasm, stricture or mass.
== END 2024-06-22 10:13 | disposition home or self-care (01) ==
LOC: RAD 10:12
PROVIDERS: PCP Family Medicine; Visit Provider Nurse Practitioner Family
DX: C78.02 Secondary malignant neoplasm of left lung (principal); R13.10 Dysphagia, unspecified; R93.3 Abnormal findings on diagnostic imaging of other parts of digestive tract
CPT/HCPCS: 74230; 92611

== ENCOUNTER 2024-06-29 12:56 | Oncology outpatient (recurring) (ONCR) | payer MEDICARE, OTHER, SELFPAY ==
[2024-06-29 13:24] LABS: Basophils # 0.1 10^3/uL (0.0-0.1); Basophils % 0.7 %; Eosinophils # 0.2 10^3/uL (0.0-0.8); Eosinophils % 2.5 %; Hematocrit 44.4 % (37-53); Lymphocytes % 13.8 %; Mean Corpuscular HGB Conc 34.2 g/dL (30-55); Mean Corpuscular Hemoglobin 30.3 pg (27-33); Mean Corpuscular Volume 88.4 fl (82-101); Monocytes # 0.6 10^3/uL (0.2-0.9); Monocytes % 7.8 %; Neutrophils % 75.1 %; Nucleated Red Blood Cells % 0 %; Platelet Count 219 10^3/cmm (157-399); Red Blood Count 5.02 10^6/uL (3.85-5.65); Red Cell Distribution Width 13.7 % (12.1-15.1); White Blood Count 7.32 10^3/uL (3.29-11.43)
[2024-06-29 13:35] LABS: INR 1.74 (0.8-1.2)
[2024-06-29 13:49] LABS: Alanine Aminotransferase 18 U/L (0-41); Albumin Level 3.9 g/dL (3.5-5.2); Alkaline Phosphatase 108 U/L (40-130); Anion Gap 11.5 (5-19); Aspartate Amino Transferase 17 U/L (0-40); Blood Urea Nitrogen 21 mg/dL (8-23); Calcium 8.7 mg/dL (8.5-10.5); Carbon Dioxide 27 mmol/L (22-29); Chloride 104 mmol/L (98-107); Ferritin 108 ng/mL (30-400); Glucose 83 mg/dL (65-115); Iron 83 ug/dL (59-158); Osmolality Calculated 288 mOsm/kg (285-295); Percent Saturation 36.2 % (20-50); Potassium 4.5 mmol/L (3.5-5.1); Sodium 138 mmol/L (136-145); Total Bilirubin 1.1 mg/dL (0.15-1.2); Total Iron Binding Capacity 229 mcg/dl; Total Protein 6.9 g/dL (6.6-8.7); Unsaturated Iron Binding 146 ug/dL (112-347)
== END 2024-07-22 23:59 | disposition home or self-care (01) ==
PROVIDERS: PCP Family Medicine; Visit Provider Nurse Practitioner Family
DX: C77.1 Secondary and unspecified malignant neoplasm of intrathoracic lymph nodes
CPT/HCPCS: 36591; 80053; 82728; 83540; 83550; 85025; 85610

== ENCOUNTER 2024-07-06 11:54 | Outpatient (CLI) | payer MEDICARE, OTHER, SELFPAY ==
--- NOTE | 2024-07-06 12:00 | USCV_ITS ---
Tru Quarles Age: 78 Gender: M : 1945 Exam Date: 07/06/2024 12:13 Ordering Phys: Baudilio Land M.D ([email or web address]) Technologist: CT [place] [facility] [place]: BP: 110 / 60 HR: 69 Rhythm: Sinus Technical Quality: Adequate MEASUREMENTS (Male / Female) Normal Values 2D ECHO LVOT Diameter 2.1 cm LV Ejection Fraction MOD 4C 58.5 % LV Ejection Fraction MOD 2C 67.2 % LV Ejection Fraction 2C AL 70.2 % LA Diameter 4.0 cm RA Systolic Volume 4C AL 41.5 ml RA Systolic Volume 4C MOD 39.0 ml LA Sys Volume AL 43.3 cm cubed LA Sys Volume Index AL 22.5 cm cubed/m squared Aorta at Sinotubular Diameter 2.0 cm IVC Diameter 2.3 cm M-MODE LA Ao Ratio MM 1.9 AV Cusp Separation MM 0.9 cm DOPPLER AV Peak Velocity 333.7 cm/s LVOT Peak Velocity 103.0 cm/s AV Area Cont Eq vti 1.1 cm squared AV Area Cont Eq pk 1.0 cm squared MV Peak Velocity 72.0 cm/s MV Area PHT 2.7 cm squared Mitral E to A Ratio 0.8 TV Peak Velocity 198.5 cm/s TR Peak Velocity 222.0 cm/s TR Peak Gradient 19.7 mmHg TV Peak E Velocity 66.0 cm/s Right Atrial Pressure 3.0 mmHg Pulmonary Artery Systolic Pressu 22.7 mmHg PV Peak Velocity 88.5 cm/s FINDINGS Left Ventricle Normal left ventricular size, systolic function and wall thickness, with no regional wall motion abnormalities. Left ventricular ejection fraction is estimated at 55 %. Grade I/IV diastolic dysfunction (abnormal relaxation filling pattern), normal to mildly elevated filling pressures. Right Ventricle The right ventricle is normal in size and function. Right Atrium The right atrium is normal in size. Left Atrium Moderately increased left atrial size. Mitral Valve Moderately thickened mitral valve. Moderate mitral annular calcification. No mitral valve stenosis. Moderate mitral valve regurgitation. Aortic Valve Severe aortic valve calcification. Moderate to severe aortic valve stenosis, mean gradient 22.9 mmHg, SANKET 1.1 cm squared. No aortic valve regurgitation. Tricuspid Valve Structurally normal tricuspid valve without significant stenosis or regurgitation. Pulmonary artery systolic pressure is normal. Pulmonic Valve Structurally normal pulmonic valve without significant stenosis. There is no pulmonic regurgitation. Pericardium Normal pericardium without effusion. Aorta Normal ascending aorta dimension. IVC The inferior vena cava appears normal. CONCLUSIONS Normal left ventricular size, systolic function and wall thickness, with no regional wall motion abnormalities. Left ventricular ejection fraction is estimated at 55 %. Grade I/IV diastolic dysfunction (abnormal relaxation filling pattern), normal to mildly elevated filling pressures. Moderately increased left atrial size. Moderately thickened mitral valve. Moderate mitral annular calcification. No mitral valve stenosis. Moderate mitral valve regurgitation. Severe aortic valve calcification. Moderate to severe aortic valve stenosis, mean gradient 22.9 mmHg, SANKET 1.1 cm squared. No aortic valve regurgitation. There is no pericardial effusion. Right atrial pressure is around 5 mm of mercury. Aleksandra Moses MD (Electronically Signed) Final Date: 08 July 2024 21:45 S
== END 2024-07-06 11:55 | disposition home or self-care (01) ==
LOC: RAD 11:54
PROVIDERS: PCP Family Medicine; Visit Provider Internal Medicine
DX: I35.0 Nonrheumatic aortic (valve) stenosis (principal); I50.30 Unspecified diastolic (congestive) heart failure; I34.81 Nonrheumatic mitral (valve) annulus calcification; I34.0 Nonrheumatic mitral (valve) insufficiency; I70.0 Atherosclerosis of aorta
CPT/HCPCS: 93306

== ENCOUNTER → 2024-07-14 13:48 | Outpatient (BNVA) | payer MEDICARE, OTHER, SELFPAY | PROVIDERS: PCP Family Medicine; Visit Provider Nurse Practitioner Family | DX: R05.9 Cough, unspecified (principal) | CPT/HCPCS: 87426 ==

== ENCOUNTER 2024-07-27 10:39 | Oncology outpatient (recurring) (ONCR) | payer MEDICARE, OTHER, SELFPAY ==
[2024-07-27 12:19] LABS: INR 3.74 (0.8-1.2)
== END 2024-08-21 23:59 | disposition home or self-care (01) ==
LOC: ONCMED 10:39
PROVIDERS: PCP Family Medicine; Visit Provider Nurse Practitioner Family
DX: C77.1 Secondary and unspecified malignant neoplasm of intrathoracic lymph nodes (principal)
CPT/HCPCS: 36591; 85610

== ENCOUNTER 2024-08-10 08:08 | Outpatient (CLI) | payer MEDICARE, OTHER, SELFPAY ==
--- NOTE | 2024-08-10 08:30 | FL_ITS ---
WS: [id number] Exam: FL barium swallow [id number] Date/Time of Exam: 08/10/2024 8:33 AM Reason For Exam: Fluoroscopy time: 1min [phone] minutes # of spot films: 6 Oropharyngeal phase of swallowing was normal. No sign of aspiration or penetration. Marked tertiary s pasm noted in the mid and lower esophagus. No esophageal mass or stricture identified. Small anterior diverticulum along the distal esophagus just above the GE junction. No reflux identified during fluo roscopy. FL/FL barium swallow [id number] IMPRESSION: 1. No sign of esophageal stricture or mass. 2. 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
== END 2024-08-10 08:09 | disposition home or self-care (01) ==
PROVIDERS: PCP Family Medicine; Visit Provider Nurse Practitioner Family
DX: R13.10 Dysphagia, unspecified (principal); R93.3 Abnormal findings on diagnostic imaging of other parts of digestive tract
CPT/HCPCS: 74220

== ENCOUNTER → 2024-08-12 11:11 | Outpatient (BNVA) | payer MEDICARE, OTHER, SELFPAY | PROVIDERS: Visit Provider Nurse Practitioner Family | DX: I65.29 Occlusion and stenosis of unspecified carotid artery (principal) | CPT/HCPCS: 85610 ==

== ENCOUNTER 2024-08-27 09:34 | Oncology outpatient (recurring) (ONCR) | payer MEDICARE, OTHER, SELFPAY ==
[2024-08-27 10:20] LABS: Basophils # 0.1 10^3/uL (0.0-0.1); Basophils % 0.9 %; Eosinophils # 0.2 10^3/uL (0.0-0.8); Eosinophils % 2.7 %; Hematocrit 41.3 % (37-53); Lymphocytes % 18.4 %; Mean Corpuscular HGB Conc 32.9 g/dL (30-55); Mean Corpuscular Hemoglobin 29.6 pg (27-33); Mean Platelet Volume 10.3 fL (7.4-10.4); Monocytes # 0.4 10^3/uL (0.2-0.9); Neutrophils # 3.92 10^3/uL (1.8-7.7); Neutrophils % 70.8 %; Nucleated Red Blood Cells % 0 %; Platelet Count 229 10^3/cmm (157-399); Red Blood Count 4.59 10^6/uL (3.85-5.65); Red Cell Distribution Width 13.9 % (12.1-15.1); White Blood Count 5.54 10^3/uL (3.29-11.43)
[2024-08-27 10:37] LABS: Alanine Aminotransferase 15 U/L (0-41); Albumin Level 3.6 g/dL (3.5-5.2); Alkaline Phosphatase 104 U/L (40-130); Anion Gap 14.3 (5-19); Aspartate Amino Transferase 18 U/L (0-40); Blood Urea Nitrogen 21 mg/dL (8-23); Calcium 8.7 mg/dL (8.5-10.5); Carbon Dioxide 23 mmol/L (22-29); Chloride 103 mmol/L (98-107); Creatinine Clr Calc Pharmacy 59.5184; Glucose 91 mg/dL (65-115); Osmolality Calculated 285 mOsm/kg (285-295); Potassium 4.3 mmol/L (3.5-5.1); Sodium 136 mmol/L (136-145); Total Bilirubin 0.8 mg/dL (0.15-1.2); Total Protein 6.6 g/dL (6.6-8.7)
[2024-08-27 14:19] LABS: Ferritin 152 ng/mL (30-400); Iron 71 ug/dL (59-158); Percent Saturation 34.4 % (20-50); Total Iron Binding Capacity 206 mcg/dl; Unsaturated Iron Binding 135 ug/dL (112-347)
== END 2024-09-21 23:59 | disposition home or self-care (01) ==
PROVIDERS: PCP Family Medicine; Visit Provider Nurse Practitioner Family
DX: C77.1 Secondary and unspecified malignant neoplasm of intrathoracic lymph nodes (principal); C78.02 Secondary malignant neoplasm of left lung; D50.0 Iron deficiency anemia secondary to blood loss (chronic)
CPT/HCPCS: 36591; 80053; 82728; 83540; 83550; 85025; 99214

== ENCOUNTER 2024-09-27 10:20 | Oncology outpatient (recurring) (ONCR) | payer MEDICARE, OTHER, SELFPAY ==
[2024-09-27 10:57] LABS: INR 2.27 (0.8-1.2)
== END 2024-10-22 23:59 | disposition home or self-care (01) ==
PROVIDERS: PCP Family Medicine; Visit Provider Nurse Practitioner Family
DX: D50.0 Iron deficiency anemia secondary to blood loss (chronic) (principal); C77.1 Secondary and unspecified malignant neoplasm of intrathoracic lymph nodes; I65.29 Occlusion and stenosis of unspecified carotid artery
CPT/HCPCS: 36591; 85610

== ENCOUNTER → 2024-11-16 14:37 | Outpatient (BNVA) | payer MEDICARE, OTHER, SELFPAY | PROVIDERS: Family Provider Nurse Practitioner Family; PCP Nurse Practitioner Family; Visit Provider Internal Medicine Medical Oncology | DX: D50.0 Iron deficiency anemia secondary to blood loss (chronic) (principal); I65.29 Occlusion and stenosis of unspecified carotid artery | CPT/HCPCS: 80053; 82728; 83550; 85025; 85610 ==

== ENCOUNTER 2024-11-19 07:51 | Oncology outpatient (recurring) (ONCR) | payer MEDICARE, OTHER, SELFPAY ==
[2024-10-25 11:22] LABS: INR 1.27 (0.8-1.2)
[2024-10-25 11:44] LABS: Chol HDL Ratio 5.08 mg/dL (1.0-5.00); Cholesterol 198 mg/dL (0-200); Free T4 Free Thyroxine 1.23 ng/dL (0.82-1.77); HDL Cholesterol 39 mg/dL (60-100); LDL Cholesterol Calculated 109 mg/dL (50-129); LDL HDL Ratio 2.79 RATIO (0.00-3.22); Thyroid Stimulating Hormone 5.04 uIU/mL (0.27-4.20); Triglycerides 248 mg/dL (0-150)
--- NOTE | 2024-11-19 07:53 | MR_ITS ---
WS: [id number] MRA CAROTID ARTERIES HISTORY: DYSPHAGIA/BRAIN FOG COMPARISON: None available. TECHNIQUE: MRA is performed with intravenous gadolinium. MIP and source images are reviewed. Right: The origin of the RIGHT common carotid artery is poorly visualized due to overlapping veins and arteries. The remaining common carotid artery and internal and external carotid arteries are patent. There is mild narrowing in the proximal RIGHT ICA but less than 50%. Left: Normal LEFT common carotid artery arises from the arch. Focal stenosis estimated at 50% involving the LEFT ICA. ECA is patent. Subclavian Arteries: Subclavian arteries are both patent. Mild stenosis at the origin of the RIGHT subclavian artery is likely. Vertebral Arteries: Vertebral arteries are both patent. Intermittent flow in the RIGHT vertebral artery. On the source images better flow was identified. MR/MR angio neck w con* [id number] IMPRESSION: 1. Mild stenosis estimated near 50% bilaterally in the origin of the internal carotid arteries. 2. Mild disease throughout the RIGHT vertebral artery but it is patent. 3. Mild stenosis suspected at the origin of the RIGHT subclavian artery.
--- NOTE | 2024-11-19 07:53 | MR_ITS ---
WS: [id number] MRA ANGIOGRAPHY [place] HISTORY: DYSPHAGIA/BRAIN FOG COMPARISON: None available. TECHNIQUE: 3-D MR angiography is performed of the [place]. All images are reviewed including source images. Distal vertebral and basilar arteries are intact with no significant stenosis or plaque. Codominant vertebral arteries. Posterior cerebral arteries are normal course and caliber. Posterior communicating arteries are both patent. Mild atherosclerotic plaque to the carotid cavernous sinuses. No high-grade stenosis or occlusion. Mild supraclinoid narrowing of the arteries. Short segment occlusion versus a very high-grade stenosis involving the RIGHT trifurcation. There is vascularity noted distal to this stenosis. There is a slight decreased vascularity to the distal RIGHT MCA artery territory. Anterior cerebral arteries normal. MR/MR angio head wo con [id number] IMPRESSION: 1. 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 In the distal RIGHT MCA territory there is still vascula rity although decreased as compared to the LEFT. 2. Mild atherosclerotic plaque with narrowing involving the cavernous carotid arteries and the supraclinoid carotid arteries. 3. No aneurysm.
--- NOTE | 2024-11-19 07:53 | MR_ITS ---
WS: [id number] MRI BRAIN WITH AND WITHOUT CONTRAST HISTORY: FOGGY BRAIN COMPARISON: 04/27/2019 TECHNIQUE: Multiplanar imaging performed through the brain with MultiHance 16 ml's IV. No acute infarcts are seen. Motta-white matter differentiation is well preserved. Mild volume loss and atrophy of the cerebrum and cerebellum. Since the study from 2019 there is been a significant progression of T2 and FLAIR signal hyperintensities throughout the white matter. New subcortical ischemic changes and periventricular ischemia. Area of decreased signal intensity in the posterior LEFT cerebellum was present on the prior study and does not enhance. This is most likely prior infarct. 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 Mild bilateral hippocampal atrophy. No susceptibility artifacts or prior lacunar infarcts. Ventricles and extra-axial spaces are more prominent as compared to 2019. Clivus and pituitary gland are normal. Postcontrast images are negative for masses or vascular malformations. Dural venous sinuses are normal. Arachnoid granulations are noted in the transverse sinuses. Paranasal sinuses: Mild mucoperiosteal thickening in the posterior sphenoid sinuses. No air-fluid levels. Mastoid air cells: Normal. Calvarium and scalp: Normal. MR/MR head wo/w con [id number] IMPRESSION: 1. No acute infarct or diffusion abnormality. 2. Progression of cerebral atrophy and ventriculomegaly since the prior study. 3. Mild bilateral hippocampal atrophy. 4. Moderate progression of small vessel ischemic changes throughout the white matter. 5. 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 Addit ional smaller lacunar infarcts in the RIGHT basal ganglia and thalamus. 6. No enhancing masses. No vascular malformations.
[2024-11-19] MEDS: gadobenate dimeglumine 20 mL vial 16 ML IV (09:29)
== END 2024-11-19 23:59 | disposition home or self-care (01) ==
LOC: ONCMED 07:51 → RAD 11-20
PROVIDERS: Nurse Practitioner Family; Family Provider Nurse Practitioner Family; PCP Nurse Practitioner Family; Visit Provider Psychiatry & Neurology Neurology
DX: Z53.9 Procedure and treatment not carried out, unspecified reason; R13.10 Dysphagia, unspecified; R41.9 Unspecified symptoms and signs involving cognitive functions and awareness; I65.23 Occlusion and stenosis of bilateral carotid arteries; Z86.73 Personal history of transient ischemic attack (TIA), and cerebral infarction without residual deficits
CPT/HCPCS: 36591; 70544; 70548; 70553; 80061; 82306; 82607; 82746; 83735; 83921; 84439; 84443; 85610; 99203; A9577

== ENCOUNTER → 2024-11-23 14:29 | Outpatient (BNVA) | payer MEDICARE, OTHER, SELFPAY | PROVIDERS: Family Provider Nurse Practitioner Family; PCP Nurse Practitioner Family; Referring Provider Psychiatry & Neurology Neurology; Visit Provider Psychiatry & Neurology Neurology | DX: R56.9 Unspecified convulsions (principal) | CPT/HCPCS: 95813 ==

== ENCOUNTER 2024-12-06 09:29 | Oncology outpatient (recurring) (ONCR) | payer MEDICARE, OTHER, SELFPAY ==
[2024-12-06 10:11] LABS: Basophils # 0.1 10^3/uL (0.0-0.1); Basophils % 1.1 %; Eosinophils # 0.2 10^3/uL (0.0-0.8); Eosinophils % 3.4 %; Hematocrit 44.9 % (37-53); Lymphocytes # 1.2 10^3/uL (0.8-4.8); Lymphocytes % 22.1 %; Mean Corpuscular HGB Conc 33.6 g/dL (30-55); Mean Corpuscular Volume 89.1 fl (82-101); Mean Platelet Volume 10.8 fL (7.4-10.4); Monocytes # 0.4 10^3/uL (0.2-0.9); Neutrophils # 3.43 10^3/uL (1.8-7.7); Neutrophils % 65.2 %; Nucleated Red Blood Cells % 0 %; Platelet Count 193 10^3/cmm (157-399); Red Blood Count 5.04 10^6/uL (3.85-5.65); Red Cell Distribution Width 13.6 % (12.1-15.1); White Blood Count 5.26 10^3/uL (3.29-11.43)
[2024-12-06 10:32] LABS: Alanine Aminotransferase 16 U/L (0-41); Albumin Level 3.8 g/dL (3.5-5.2); Alkaline Phosphatase 95 U/L (40-130); Anion Gap 14.9 (5-19); Aspartate Amino Transferase 17 U/L (0-40); Blood Urea Nitrogen 21 mg/dL (8-23); Calcium 8.7 mg/dL (8.5-10.5); Carbon Dioxide 25 mmol/L (22-29); Chloride 107 mmol/L (98-107); Creatinine Clr Calc Pharmacy 54.1076; Globulin 2.7 g/dL (1.3-4.6); Glucose 126 mg/dL (65-115); INR 1.91 (0.8-1.2); Iron 145 ug/dL (59-158); Osmolality Calculated 301 mOsm/kg (285-295); Percent Saturation 73.6 % (20-50); Potassium 3.9 mmol/L (3.5-5.1); Sodium 143 mmol/L (136-145); Total Bilirubin 0.9 mg/dL (0.15-1.2); Total Iron Binding Capacity 197 mcg/dl; Total Protein 6.5 g/dL (6.6-8.7); Unsaturated Iron Binding 52 ug/dL (112-347)
== END 2024-12-20 23:59 | disposition home or self-care (01) ==
PROVIDERS: Internal Medicine Medical Oncology; Family Provider Nurse Practitioner Family; PCP Nurse Practitioner Family; Visit Provider Psychiatry & Neurology Neurology
DX: Z08 Encounter for follow-up examination after completed treatment for malignant neoplasm (principal); Z85.79 Personal history of other malignant neoplasms of lymphoid, hematopoietic and related tissues; D50.0 Iron deficiency anemia secondary to blood loss (chronic); I65.29 Occlusion and stenosis of unspecified carotid artery; Z95.828 Presence of other vascular implants and grafts; Z92.3 Personal history of irradiation; Z92.21 Personal history of antineoplastic chemotherapy; Z79.899 Other long term (current) drug therapy
CPT/HCPCS: 36591; 80053; 83540; 83550; 85025; 85610; 99214

== ENCOUNTER → 2024-12-07 14:35 | Outpatient (BNVA) | payer MEDICARE, OTHER, SELFPAY | PROVIDERS: Family Provider Nurse Practitioner Family; PCP Nurse Practitioner Family; Visit Provider Internal Medicine | DX: I10 Essential (primary) hypertension (principal); I73.9 Peripheral vascular disease, unspecified; I25.10 Atherosclerotic heart disease of native coronary artery without angina pectoris; Z95.1 Presence of aortocoronary bypass graft; E78.5 Hyperlipidemia, unspecified; J44.9 Chronic obstructive pulmonary disease, unspecified | CPT/HCPCS: 99214 ==

== ENCOUNTER 2025-01-03 13:47 | Oncology outpatient (recurring) (ONCR) | payer MEDICARE, OTHER, SELFPAY ==
[2025-01-03 14:54] LABS: Basophils # 0.1 10^3/uL (0.0-0.1); Eosinophils # 0.1 10^3/uL (0.0-0.8); Eosinophils % 2.5 %; Hematocrit 43.1 % (37-53); Lymphocytes # 1.1 10^3/uL (0.8-4.8); Lymphocytes % 20.5 %; Mean Corpuscular HGB Conc 33.9 g/dL (30-55); Mean Corpuscular Hemoglobin 30.3 pg (27-33); Mean Corpuscular Volume 89.4 fl (82-101); Mean Platelet Volume 10.9 fL (7.4-10.4); Monocytes # 0.3 10^3/uL (0.2-0.9); Monocytes % 6.2 %; Neutrophils # 3.59 10^3/uL (1.8-7.7); Neutrophils % 69.4 %; Nucleated Red Blood Cells % 0 %; Platelet Count 203 10^3/cmm (157-399); Red Blood Count 4.82 10^6/uL (3.85-5.65); Red Cell Distribution Width 13.5 % (12.1-15.1); White Blood Count 5.17 10^3/uL (3.29-11.43)
[2025-01-03 15:05] LABS: INR 2.33 (0.8-1.2)
[2025-01-03 15:11] LABS: Alanine Aminotransferase 22 U/L (0-41); Albumin Level 3.7 g/dL (3.5-5.2); Alkaline Phosphatase 98 U/L (40-130); Anion Gap 14.8 (5-19); Aspartate Amino Transferase 17 U/L (0-40); Blood Urea Nitrogen 28 mg/dL (8-23); Calcium 8.7 mg/dL (8.5-10.5); Carbon Dioxide 25 mmol/L (22-29); Chloride 103 mmol/L (98-107); Globulin 2.8 g/dL (1.3-4.6); Glucose 175 mg/dL (65-115); Osmolality Calculated 298 mOsm/kg (285-295); Potassium 3.8 mmol/L (3.5-5.1); Sodium 139 mmol/L (136-145); Total Bilirubin 0.8 mg/dL (0.15-1.2); Total Protein 6.5 g/dL (6.6-8.7)
== END 2025-01-19 23:59 | disposition home or self-care (01) ==
LOC: ONCMED 13:47
PROVIDERS: Nurse Practitioner Family; Family Provider Nurse Practitioner Family; PCP Nurse Practitioner Family; Visit Provider Psychiatry & Neurology Neurology
DX: C78.02 Secondary malignant neoplasm of left lung (principal); C77.1 Secondary and unspecified malignant neoplasm of intrathoracic lymph nodes; Z92.29 Personal history of other drug therapy
CPT/HCPCS: 36591; 80053; 85025; 85610

== ENCOUNTER 2025-01-31 14:14 | Emergency (ER) | payer MEDICARE, OTHER, SELFPAY ==
[2025-01-31] VITALS (7 sets, daily range): BP systolic 162–184; BP diastolic 79–92; PULSE 65–69; RESP 13–16; TEMP 36.9; O2SAT 95–97; BMI 25.9
--- NOTE | 2025-01-31 14:24 | ECG_ITS ---
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
--- NOTE | 2025-01-31 14:25 | ED_ITS ---
HPI - Weakness 2 General: Chief complaint: Weakness Stated complaint: weakness Time Seen by Provider: 01/31/25 14:24 History of Present Illness: 79-year-old female presents emergency ro om complaining just does not feel well. He describes himself being in brain fog he is a difficult time elaborating on. It has had similar visits in the past. Patient has had some nausea throughout the day. He has a history of lung cancer is not currently being treated. Does not have any hemoptysis denies any fever sweats chills no productive cough no abdominal pain no chest pain Associated symptoms: Denies chest pain, chills, dysuria or fever(s) Review of Systems 2 Const: Reports: fatigue and malaise; Denies: fever(s) or chills Card: Denies: chest pain Resp: Denies: dyspnea GI: Denies: abdominal pain : Denies: dysuria, urinary frequency or urinary urgency Musc: Denies: neck pain or back pain Skin/Breast: Denies: rash PFSH ED 2 PFSH: Medical History (Updated 01/31/25 @ 17:12 by Ramez Falcon DO) Enrolled in chronic care management Peripheral arterial disease DVT (deep venous thrombosis) Squamous cell lung cancer Tobacco abuse, in remission Carotid stenosis CHD (coronary heart disease) COPD (chronic obstructive pulmonary disease) Dyslipidemia Hypertension Anemia Surgical History S/P arterial stent Iliac stents bilaterally History of lung biopsy 12/20/13 H/O circumcision History of biopsy thyroid 11/26/13 H/O shoulder surgery right shoulder shrapnel removed Status post colonoscopy with polypectomy Cecum: 2.5 cm polyp which is removed piecemeal with cold biopsy forceps Pathology: Tubular adenoma with high-grade dysplasia History of esophagogastroduodenoscopy (EGD) Normal History of femoropopliteal bypass right 2011 Port-A-Cath in place 02/07/[address] Kameron Rojo 2011 left internal mammary to the LAD and a sequential graft to the first obtuse marginal branch then to the posterior descending artery. Family History Father Myocardial infarction CAD (coronary artery disease) Dementia Mother Stroke Dementia Sister Lung disease COPD Other Hyperlipidemia Hypertension Denies family history of Diabetes Clotting disorder Psychiatric illness Chronic kidney disease (CKD) Suicide Anesthesia complication Bleeding disorder Cancer Social History Smoking and tobacco/nicotine status: never used tobacco/nicotine Quit status (tobacco/nicotine): has quit using Year quit tobacco: 2008 - 2PPD x 40 Years Former quit date comment: smoked 40 years Alcohol intake: current Alcohol intake frequency: holidays/special occasions only Substance/Drug Use: never Lives independently: Yes Household members: spouse Marital status: service: Yes status details: 7 YEARS branch: [employer] Current occupational status: retired Do you think of yourself as: Straight/Heterosexual Current gender identity: Male Roula/Zoroastrianism: Buddhist Physical Exam 2 Const: GENERAL APPEARANCE: cooperative ORIENTATION/CONSCIOUSNESS: Yes awake, Yes oriented to person, Yes oriented to place and Yes oriented to time HENMT: COMMON NORMALS: normocephalic, atraumatic and hearing grossly normal bilaterally HEAD & SCALP: normocephalic and atraumatic Resp: COMMON NORMALS: normal respiratory effort, No retractions, No use of accessory muscles and clear to auscultation bilaterally AUSCULTATION: clear to auscultation bilaterally Cardio: COMMON NORMALS: regular rate, regular rhythm and No murmurs present (Cardio) RATE: regular rate RHYTHM: regular rhythm GI: COMMON NORMALS: Soft to palpation and No hepatosplenomegaly present A USCULTATION: Yes normoactive bowel sounds PALPATION: Yes Soft to palpation, No Tenderness to palpation present (GI), No Guarding due to palpation present (GI) and Yes No hepatosplenomegaly present Extremity: COMMON NORMALS: normal to inspection, capillary refill normal, no clubbing, cyanosis or edema, no calf tenderness and no pedal edema Neuro: SENSORIUM/ORIENTATION: Yes oriented to person, Yes oriented to place and Yes oriented to time Skin: COMMON NORMALS: no rashes or lesions noted GENERAL SKIN EXAM: no rashes or lesions noted Course 2 Vital Signs: Vital signs: Vital Signs Temperature 98.4 F 01/31/25 14:24 Pulse Rate 65 01/31/25 17:41 Respiratory Rate 13 01/31/25 17:41 Blood Pressure 166/79 01/31/25 17:41 Pulse Oximetry 97 01/31/25 17:41 Oxygen Delivery Me thod Room Air 01/31/25 17:00 MDM - Weakness Medical Decision Making No significant findings patient given fluids labs and imaging reviewed his INR is normal CBC and BMP are normal. No clinically significant abnormalities. Will discharge patient home and follow-up with primary care continue his current medications. Medical Records I reviewed the patient's medical records. Lab Data I reviewed the patient's lab results. 01/31/25 15:06 01/31/25 15:[address] 01/31/25 14:50 IMPRESSION: 1. No acute intracranial hemorrhage or edema. 2. Cerebral and cerebellar atrophy and small vessel disease. No acute infarct. 3. Mild ventriculomegaly, stable. Chest X-Ray 01/31/25 15:44 IMPRESSION: Mild bibasilar opacities favor atelectasis. Superimposed infiltrate not excluded in the correct clinical setting. Laboratory Results WBC 8.77 10^3/uL (3.29-11.43) 01/31/25 15:06 RBC 5.23 10^6/uL (3.85-5.65) 01/31/25 15:06 Hgb 15.70 g/dL (11.27-16.99) 01/31/25 15:06 Hct 45.7 % (37-53) 01/31/25 15:06 MCV 87.4 fl (82-101) 01/31/25 15:06 MCH 30.0 pg (27-33) 01/31/25 15:06 MCHC 34.4 g/dL (30-55) 01/31/25 15:06 RDW 13.2 % (12.1-15.1) 01/31/25 15:06 Plt Count 200 10^3/cmm (157-399) 01/31/25 15:06 MPV 10.4 fL (7.4-10.4) 01/31/25 15:06 Neut % (Auto) 84.1 % 01/31/25 15:06 Lymph % (Auto) 9.4 % 01/31/25 15:06 [place] % (Auto) 4.6 % 01/31/25 15:06 Eos % (Auto) 0.8 % 01/31/25 15:06 Baso % (Auto) 0.6 % 01/31/25 15:06 Neut # (Auto) 7.39 10^3/uL (1.8-7.7) 01/31/25 15:06 Lymph # (Auto) 0.8 10^3/uL (0.8-4.8) 01/31/25 15:06 [place] # (Auto) 0.4 10^3/uL (0.2-0.9) 01/31/25 15:06 Eos # (Auto) 0.1 10^3/uL (0.0-0.8) 01/31/25 15:06 Baso # (Auto) 0.1 10^3/uL (0.0-0.1) 01/31/25 15:06 Nucleated RBC % (auto) 0 % 01/31/25 15:06 Nucleated RBCs # 0.0 /100WBC 01/31/25 15:06 PT 24.40 SECONDS (12.1-14.9) H 01/31/25 15:06 INR 2.06 (0.8-1.2) H 01/31/25 15:06 Sodium 140 mmol/L (136-145) 01/31/25 15:06 Potassium 4.2 mmol/L (3.5-5.1) 01/31/25 15:06 Chloride 103 mmol/L (98-107) 01/31/25 15:06 Carbon Dioxide 22 mmol/L (22-29) 01/31/25 15:06 Anion Gap 19.2 (5-19) H 01/31/25 15:06 BUN 17 mg/dL (8-23) 01/31/25 15:06 Creatinine 0.9 mg/dL (0.7-1.2) 01/31/25 15:06 GFR Calculation Not Reportable 01/31/25 15:06 Glucose 93 mg/dL (65-115) 01/31/25 15:06 Calculated Osmolality 291 mOsm/kg (285-295) 01/31/25 15:06 Calcium 8.7 mg/dL (8.5-10.5) 01/31/25 15:06 Total Bilirubin 1.2 mg/dL (0.15-1.2) 01/31/25 15:06 AST 19 U/L (0-40) 01/31/25 15:06 ALT 20 U/L (0-41) 01/31/25 15:06 Alkaline Phosphatase 101 U/L (40-130) 01/31/25 15:06 Total Protein 7.1 g/dL (6.6-8.7) 01/31/25 15:06 Albumin 3.9 g/dL (3.5-5.2) 01/31/25 15:06 Globulin 3.2 g/dL (1.3-4.6) 01/31/25 15:06 Urine Color Yellow (Yellow) 01/31/25 15:03 Urine Appearance Clear (CLEAR) 01/31/25 15:03 Urine pH 7.5 (5-7) 01/31/25 15:03 Ur Specific [place] 1.015 (1.005-1.030) 01/31/25 15:03 Urine Protein 1+ (Negative) A 01/31/25 15:03 Urine Glucose (UA) Negative (Normal) 01/31/25 15:03 Urine Ketones Negative (Negative) 01/31/25 15:03 Urine Blood Negative (Negative) 01/31/25 15:03 Urine Nitrate Negative (Negative) 01/31/25 15:03 Urine Bilirubin Negative (Negative) 01/31/25 15:03 Urine Urobilinogen 1.0 mg/dL (Negative) 01/31/25 15:03 Ur Leukocyte Esterase Negative (Negative) 01/31/25 15:03 Urine RBC 0-2 /hpf (0-2) 01/31/25 15:03 Urine WBC 0-5 /hpf (0-5) 01/31/25 15:03 Ur Squamous Epith Cells 0-5 /hpf (0-5) 01/31/25 15:03 Amorphous Sediment Not Reportable 01/31/25 15:03 Urine Bacteria None seen /hpf (NONE) 01/31/25 15:03 Hyaline Casts 3.30 /lpf 01/31/25 15:03 All radiology interpretation(s) finalized by discharge Discharge Plan Discharge Patient Disposition: Home Clinical Impression: Weakness Hypertension Qualifiers: Hypertension type: essential hypertension Qualified Code(s): I10 - Essential (primary) hypertension Condition: Stable Prescriptions: No Action magnesium 250 mg tablet 250 mg PO DAILY albuterol sulfate 90 mcg/actuation HFA aerosol inhaler 2 puff inhalation QID PRN (Reason: shortness of breath or wheezing) Qty: 8.5 4RF clopidogrel 75 mg tablet 75 mg PO DAILY Qty: 90 3RF metoprolol tartrate 25 mg tablet 12.5 mg PO DAILY Qty: 45 3RF warfarin 2 mg tablet See Rx Instructions .ROUTE .COMPLEX Qty: 60 2RF Dose Instruction: Take 2 tablets by mouth once daily Rx Instructions: Take 2 tablets by mouth once daily [id number] 1 tab fri & & sat ferrous sulfate 325 mg (65 mg iron) tablet 325 mg PO DAILY albuterol sulfate 2.5 mg/0.5 mL solution for nebulization 5 mg inhalation Q6H PRN (Reason: shortness of breath or wheezing) Qty: 30 3RF nitroglycerin [Nitrostat] 0.4 mg tablet, sublingual 0.4 mg SUBLINGUAL Q5M PRN (Reason: Pain) Qty: 25 1RF cholecalciferol (vitamin D3) 1,250 mcg (50,000 unit) capsule 50,000 unit PO .weekly Qty: 12 5RF potassium chloride 10 mEq tablet extended release 10 meq PO DAILY Rx Instructions: Take 1 tablet by mouth once daily levothyroxine 125 mcg tablet 125 mcg PO DAILY Rx Instructions: TAKE 1 TABLET BY MOUTH ONCE DAILY (DOSE CHANGE) rosuvastatin 20 mg tablet 20 mg PO DAILY Rx Instructions: Take 1 tablet by mouth once daily Anoro Ellipta 62.5-25 mcg/actuation blister with device 1 inh inhalation DAILY Rx Instructions: INHALE one DOSE BY MOUTH DAILY atorvastatin 80 mg Tablet 80 mg PO QPM Discharge Orders: Discharge ED (Routine); Ordered 01/31/25 Ordered By: Ramez Falcon Referrals: Frida Faust FNP [Primary Care Provider, Family Practice] Discharge Diet: Usual diet Discharge Activity: Resume usual activity Patient Instructions: Opioid Safety, Pain Management Activity Restrictions/Additional Instructions: Thank you for choosing [facility] for your healthcare needs today. It is very important that you follow up as instructed or that you return to the Emergency Department should you have concerns or if your condition changes or worsens in any way. You are seen in the emergency room with complaints of generally not feeling well your laboratory tests are unremarkable Dermestril remainder of your exam did not show any significant abnormality. We did give you IV fluids. Recommend you follow-up with your primary care doctor within the next week. 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 Fwd Related Data Home Medications ?Medication ?Instructions ?Recorded ?Confirmed ferrous sulfate 325 mg (65 mg 325 mg PO DAILY 05/27/23 01/31/25 iron) tablet magnesium 250 mg tablet 250 mg PO DAILY 10/23/2309/15 atorvastatin 80 mg tablet 80 mg PO QPM 01/31/25 levothyroxine 125 mcg tablet 125 mcg PO DAILY 01/31/25 01/31/25 potassium chloride 10 mEq 10 meq PO DAILY 01/31/2509/15 tablet,extended release rosuvastatin 20 mg tablet 20 mg PO DAILY 01/31/2501/20 umeclidinium 62.5 mcg-vilanterol 1 inh inhalation BOUCHRA Y 01/31/25 01/31/25 25 mcg/actuation powdr for inhalation (Anoro Ellipta) Previous Rx's ?Medication ?Instructions ?Recorded albuterol sulfate 2.5 mg/0.5 mL 5 mg inhalation Q6H IA N shortness 10/10/23 solution for nebulization of breath or wheezing #30 ea nitroglycerin 0.4 mg sublingual 0.4 mg sublingual Q5M PRN Pain #25 02/09/24 tablet (Nitrostat) tabs albuterol sulfate 90 mcg/actuation 2 puff inhalation Q ID PRN 08/11/24 aerosol inhaler shortness of breath or wheez ing #8.5 grams clopidogrel 75 mg tablet 75 mg PO DAILY #90 tabs 05/16 metoprolol tartrate 25 mg tablet 12.5 mg (1/2 x 25 mg) PO DAILY #45 09/29/24 tabs warfarin 2 mg tablet See Rx Instructions .Route 0 09/29/24 .COMPLEX #60 tabs cholecalciferol (vitamin D3) 1,250 50,000 unit PO .wee kly #12 caps 11/03/24 mcg (50,000 unit) capsule Allergies Allergy/AdvReac Type Severity Reaction Status Date / Time chlorhexidine (From AdvReac ADR-Itching Verified 12/07/24 15:28 ChloraPrep Clear) isopropyl alcohol (From AdvReac ADR-Itching Verified 12/07/24 15:28 ChloraPrep Clear)
--- NOTE | 2025-01-31 14:50 | CT_ITS ---
WS: [id number] CT HEAD NONCONTRAST HISTORY: History of lung cancer headaches, confusion TECHNIQUE: Contiguous axial imaging performed through the brain. Bone and soft tissue windows. Sagittal and coronal reformats reviewed. All CT scans at [facility] use at least one of these dose optimization techniques: automated exposure control; mA and/or kV adjustment per patient size (includes targeted exams where dose is matched to clinical indication); or iterative reconstruction. DLP: 1079.88 mGy.cm COMPARISON: None available. No acute intracranial hemorrhage, midline shift or mass effect. Mild symmetric atrophy and small vessel disease. Small lacunar infarct RIGHT internal capsule. Moderate bilateral cerebellar atrophy. Ventricles: Ventricles are mildly dilated. No inferior displacement of the cerebellar tonsils. Empty sella turcica. Paranasal sinuses: As visualized are clear. Mastoid air cells: Well pneumatized. Calvarium and scalp: Skull is intact with no soft tissue edema or swelling. CT/CT head wo con* [id number] IMPRESSION: 1. No acute intracranial hemorrhage or edema. 2. Cerebral and cerebellar atrophy and small vessel disease. No acute infarct. 3. Mild ventriculomegaly, stable.
[2025-01-31 15:18] LABS: Basophils # 0.1 10^3/uL (0.0-0.1); Basophils % 0.6 %; Eosinophils # 0.1 10^3/uL (0.0-0.8); Eosinophils % 0.8 %; Hematocrit 45.7 % (37-53); Lymphocytes # 0.8 10^3/uL (0.8-4.8); Lymphocytes % 9.4 %; Mean Corpuscular HGB Conc 34.4 g/dL (30-55); Mean Corpuscular Volume 87.4 fl (82-101); Mean Platelet Volume 10.4 fL (7.4-10.4); Monocytes # 0.4 10^3/uL (0.2-0.9); Monocytes % 4.6 %; Neutrophils # 7.39 10^3/uL (1.8-7.7); Neutrophils % 84.1 %; Nucleated Red Blood Cells % 0 %; Platelet Count 200 10^3/cmm (157-399); Red Blood Count 5.23 10^6/uL (3.85-5.65); Red Cell Distribution Width 13.2 % (12.1-15.1); White Blood Count 8.77 10^3/uL (3.29-11.43)
[2025-01-31 15:28] LABS: Bilirubin Urine Negative (Negative); Blood Urine Negative (Negative); Glucose Urine UA Negative (Normal); Ketones Urine Negative (Negative); Leukocyte Esterase Urine Negative (Negative); Nitrate Urine Negative (Negative); Protein Urine 1+ (Negative); Specific Gravity, Urine 1.015 (1.005-1.030); Urine Appearance Clear (CLEAR); Urine Color Yellow (Yellow); pH Urine 7.5 (5-7)
[2025-01-31 15:33] LABS: Add Urine Microscopic? YES; Bacteria Urine None Seen /hpf; RBC Urine 0-2 /hpf (0-2); Squamous Epithelial Cell Urine 0-5 /hpf (0-5); WBC Urine 0-5 /hpf (0-5)
[2025-01-31 15:39] LABS: Add Urine Culture? No
[2025-01-31 15:42] LABS: Alanine Aminotransferase 20 U/L (0-41); Albumin Level 3.9 g/dL (3.5-5.2); Alkaline Phosphatase 101 U/L (40-130); Anion Gap 19.2 (5-19); Aspartate Amino Transferase 19 U/L (0-40); Blood Urea Nitrogen 17 mg/dL (8-23); Calcium 8.7 mg/dL (8.5-10.5); Carbon Dioxide 22 mmol/L (22-29); Chloride 103 mmol/L (98-107); Creatinine Clr Calc Pharmacy 63.5334; Globulin 3.2 g/dL (1.3-4.6); Glucose 93 mg/dL (65-115); Osmolality Calculated 291 mOsm/kg (285-295); Potassium 4.2 mmol/L (3.5-5.1); Sodium 140 mmol/L (136-145); Total Bilirubin 1.2 mg/dL (0.15-1.2); Total Protein 7.1 g/dL (6.6-8.7)
--- NOTE | 2025-01-31 15:44 | XRR_ITS ---
PROCEDURE INFORMATION: Exam: XR Chest Exam date and time: 01/31/2025 3:56 PM Age: 79 years old Clinical indication: Shortness of breath; Additional info: Weakness history of lung cancer TECHNIQUE: Imaging protocol: Radiologic exam of the chest. Views: 1 view. COMPARISON: CT chest kelechi w/*[id number] 03/29/2024 11:40 AM FINDINGS: Tubes, catheters and devices: Left subclavian Port-A-Cath with the tip near the superior cavoatrial junction. Surgical clips overlie the lower chest. Lungs: Mild streaky bibasilar opacities. No focal consolidation. Emphysematous changes of the lungs. Pleural spaces: Unremarkable. No pleural effusion. No pneumothorax. Heart/Mediastinum: Calcified mediastinal lymph nodes. Vasculature: Tortuous thoracic aorta with atherosclerotic calcifications. Bones/joints: Changes of median sternotomy. XR/XR chest 1V portable [id number] IMPRESSION: Mild bibasilar opacities favor atelectasis. Superimposed infiltrate not excluded in the correct clinical setting.
[2025-01-31] MEDS: sodium chloride 0.9% 1,000 ML 999 ML IV (16:15)
[2025-01-31 16:46] LABS: INR 2.06 (0.8-1.2)
== END 2025-01-31 17:43 | disposition home or self-care (01) ==
PROVIDERS: Emergency Provider Family Medicine; PCP Nurse Practitioner Family
DX: R53.1 Weakness (principal); Z79.01 Long term (current) use of anticoagulants; Z87.891 Personal history of nicotine dependence; J44.9 Chronic obstructive pulmonary disease, unspecified; I10 Essential (primary) hypertension; Z85.118 Personal history of other malignant neoplasm of bronchus and lung; E78.5 Hyperlipidemia, unspecified
CPT/HCPCS: 70450; 71045; 80053; 81001; 85025; 85610; 93005; 99285; 99291; J7030

== ENCOUNTER 2025-02-28 12:29 | Oncology outpatient (recurring) (ONCR) | payer MEDICARE, OTHER, SELFPAY ==
[2025-02-28 13:23] LABS: INR 2.12 (0.8-1.2)
== END 2025-03-21 23:59 | disposition home or self-care (01) ==
LOC: ONCMED 12:31
PROVIDERS: Internal Medicine Medical Oncology; PCP Nurse Practitioner Family; Visit Provider Psychiatry & Neurology Neurology
DX: I65.29 Occlusion and stenosis of unspecified carotid artery (principal)
CPT/HCPCS: 36591; 85610

== ENCOUNTER → 2025-03-29 14:12 | Outpatient (BNVA) | payer MEDICARE, OTHER, SELFPAY | PROVIDERS: PCP Nurse Practitioner Family; Visit Provider Psychiatry & Neurology Neurology | DX: R41.89 Other symptoms and signs involving cognitive functions and awareness (principal); R41.3 Other amnesia; E55.9 Vitamin D deficiency, unspecified; I65.29 Occlusion and stenosis of unspecified carotid artery | CPT/HCPCS: 36415; 82233; 82234; 82306; 82542; 82746; 83520; 86592; 99212 ==

== ENCOUNTER 2025-04-04 12:30 | Oncology outpatient (recurring) (ONCR) | payer MEDICARE, OTHER, SELFPAY ==
--- NOTE | 2025-03-28 12:15 | CTR_ITS ---
PROCEDURE INFORMATION: Exam: CT Chest With Contrast; Diagnostic Exam date and time: 03/28/2025 12:39 PM Age: 79 years old Clinical indication: Condition or disease; Other: Malignant neoplasm of lymph nodes; Prior surgery; Surgery date: 6+ months; Surgery type: Port, heart; HX of lung cancer TECHNIQUE: Imaging protocol: Diagnostic computed tomography of the chest with contrast. Radiation optimization: All CT scans at this facility use at least one of these dose optimization techniques: automated exposure control; mA and/or kV adjustment per patient size (includes targeted exams where dose is matched to clinical indication); or iterative reconstruction. Contrast material: OMNI 350; Contrast volume: 100 ml; Contrast route: INTRAVENOUS (IV); COMPARISON: CT chest abdpel w/*[id number] 03/29/2024 11:40 AM RADIATION DOSE METRICS: Total DLP (mGy-cm): 715.75 FINDINGS: Tubes, catheters and devices: A stable left subclavian central line is identified, extending to the apex of the right atrium. Lungs: Stable emphysematous COPD changes are noted diffusely throughout the lungs. A small , stable, soft tissue nodule is noted in the right posterolateral sulcus measuring 9.8 mm in diameter. Hilar and mediastinal granulomatous calcifications are seen. Pleural spaces: Unremarkable. No pneumothorax. No pleural effusion. Heart: Unremarkable. No cardiomegaly. No pericardial effusion. Esophagus: Suggestion of some distal esophageal wall thickening, stable from prior study. Lymph nodes: Unremarkable. No enlarged lymph nodes. Vasculature: Stable aortic calcifications are apparent. No aneurysm or dissection is noted. Bones/joints: Sternotomy hardware is evident. Prior CABG changes are noted. Stable T11 mild compression fracture. No acute skeletal pathology is evident. Soft tissues: Unremarkable. CT Chest at 6-12 months, then CT Chest at 18-24 months. (Reference: Mellisa) REFERENCES: Taylerhoberry H, et al. Guidelines for Management of Incidental Pulmonary Nodules Detected on CT Images: From the Fleischner Society 2017. Radiology. 2017;284(1):228-243. PROCEDURE INFORMATION: Exam: CT Abdomen And Pelvis With Contrast Exam date and time: 03/28/2025 12:39 PM Age: 79 years old Clinical indication: Condition or disease; Other: Malignant neoplasm of lymph nodes; Prior surgery; Surgery date: 6+ months; Surgery type: Port, heart; HX of lung cancer TECHNIQUE: Imaging protocol: Computed tomography of the abdomen and pelvis with contrast. Radiation optimization: All CT scans at this facility use at least one of these dose optimization techniques: automated exposure control; mA and/or kV adjustment per patient size (includes targeted exams where dose is matched to clinical indication); or iterative reconstruction. Contrast material: OMNI 350; Contrast volume: 100 ml; Contrast route: INTRAVENOUS (IV); COMPARISON: CT chest abdpel w/*[id number] 03/29/2024 11:40 AM RADIATION DOSE METRICS: Total DLP (mGy-cm): 715.75 FINDINGS: Liver: Stable medial right hepatic lobe cyst is demonstrated. Gallbladder and biliary ducts: Normal. No calcified stones. No ductal dilation. Pancreas: Normal. No ductal dilation. Spleen: Stable splenic granulomatous calcifications. Adrenal glands: Stable 11 mm left adrenal nodule (02/09). Kidneys and ureters: A stable left renal cortical cyst is identified, measuring up to 16 mm in diameter. The kidneys are otherwise unremarkable. Stomach and bowel: Sigmoid diverticulosis is seen without diverticulitis. No bowel inflammation or obstruction is noted. There are no visible bowel mass lesions. Appendix: A normal appendix is identified. Intraperitoneal space: Unremarkable. No free air. No significant fluid collection. Vasculature: Severe aortoiliac atherosclerotic calcifications are seen . Dolichoectasia of the abdominal aorta is seen with maximum AP diameter of 29 mm in the infrarenal abdominal aorta. Calcified and noncalcified atheromatous plaque is demonstrated. Calcifications extend into the iliac arteries. Proximal common iliac arteries show moderate stenosis. No interval change is appreciated. A right femoral arterial graft is noted, its distal extent not included on the field of view. Lymph nodes: Unremarkable. No enlarged lymph nodes. Urinary bladder: Unremarkable as visualized. Reproductive: Mild prostatomegaly with dystrophic calcifications are present. Reproductive organs are otherwise unremarkable. Bones/joints: No acute fractures are seen. Old compression injuries of T11, T12, and L1 are noted. Soft tissues: Unremarkable. CT/CT chest abdpel w/*[id number] IMPRESSION: Stable chest CT showing emphysematous changes, COPD, and a stable right posterolateral sulcus 9.8 mm soft tissue. For patients at low risk (minimal or absent history of smoking and of other known risk factors), recommend CT Chest at 6-12 months, then consider CT Chest at 18-24 months. For patients at high risk (history of smoking or of other known risk factors), recommend IMPRESSION: 1. Stable right hepatic lobe cyst. 2. Stable left adrenal nodule. 3. Stable infrarenal fusiform enlargement of the abdominal aorta with a maximum diameter of 29 mm. 4. Prior right femoral artery graft. 5. Stable left renal cortical cyst. 6. Sigmoid diverticulosis without diverticulitis.
[2025-03-28] MEDS: iohexol 350 mg/mL 500 mL Btl (per mL) PO (12:28)
[2025-03-28] MEDS: iohexol 350 mg/mL 500 mL Btl (per mL) IV (12:42)
[2025-04-04 13:07] LABS: Hematocrit 42.7 % (37-53); Hemoglobin 14.70 g/dL (11.27-16.99); Mean Corpuscular HGB Conc 34.4 g/dL (30-55); Mean Corpuscular Hemoglobin 30.0 pg (27-33); Mean Corpuscular Volume 87.1 fl (82-101); Nucleated Red Blood Cells % 0 %; Platelet Count 233 10^3/cmm (157-399); Red Blood Count 4.90 10^6/uL (3.85-5.65); White Blood Count 5.42 10^3/uL (3.29-11.43)
[2025-04-04 13:23] LABS: INR 1.63 (0.8-1.2); Prothrombin Time 20.30 SECONDS (12.1-14.9)
[2025-04-04 13:29] LABS: Alanine Aminotransferase 11 U/L (0-41); Albumin Level 3.8 g/dL (3.5-5.2); Alkaline Phosphatase 117 U/L (40-130); Anion Gap 16.1 (5-19); Aspartate Amino Transferase 14 U/L (0-40); Blood Urea Nitrogen 22 mg/dL (8-23); Calcium 8.9 mg/dL (8.5-10.5); Carbon Dioxide 25 mmol/L (22-29); Chloride 100 mmol/L (98-107); Creatinine Clr Calc Pharmacy 54.1076; Globulin 3.4 g/dL (1.3-4.6); Glucose 102 mg/dL (65-115); Osmolality Calculated 288 mOsm/kg (285-295); Potassium 4.1 mmol/L (3.5-5.1); Sodium 137 mmol/L (136-145); Total Protein 7.2 g/dL (6.6-8.7)
== END 2025-04-21 23:59 | disposition home or self-care (01) ==
PROVIDERS: Internal Medicine Medical Oncology; PCP Nurse Practitioner Family; Visit Provider Psychiatry & Neurology Neurology
DX: Z53.9 Procedure and treatment not carried out, unspecified reason (principal); Z08 Encounter for follow-up examination after completed treatment for malignant neoplasm; Z85.79 Personal history of other malignant neoplasms of lymphoid, hematopoietic and related tissues; D50.0 Iron deficiency anemia secondary to blood loss (chronic); I65.29 Occlusion and stenosis of unspecified carotid artery; Z87.891 Personal history of nicotine dependence; Z79.899 Other long term (current) drug therapy; Z92.3 Personal history of irradiation; Z92.21 Personal history of antineoplastic chemotherapy
CPT/HCPCS: 36591; 71260; 74177; 80053; 85025; 85610; 99214

== ENCOUNTER → 2025-05-05 13:12 | Outpatient (BNVA) | payer MEDICARE, OTHER, SELFPAY | PROVIDERS: PCP Nurse Practitioner Family; Visit Provider Nurse Practitioner Family | DX: I65.29 Occlusion and stenosis of unspecified carotid artery (principal) | CPT/HCPCS: 85610 ==

== ENCOUNTER 2025-05-09 12:53 | Oncology outpatient (recurring) (ONCR) | payer MEDICARE, OTHER, SELFPAY ==
--- NOTE | 2025-05-09 12:45 | USCV_ITS ---
Tru Quarles Age: 79 Gender: M : 1945 Exam Date: 05/09/2025 13:10 Ordering Phys: Baudilio Land M.D ([email or web address]) Technologist: [place]am [place] [facility] [place]ication: as BP: 130 / 80 HR: 56 Rhythm: Sinus Technical Quality: Adequate MEASUREMENTS (Male / Female) Normal Values 2D ECHO LV Diastolic Diameter PLAX 3.8 cm 4.2 - 5.9 / 3.9 - 5.3 cm IVS Diastolic Thickness 1.4 cm 0.6 - 1.0 / 0.6 - 0.9 cm IVS Systolic Thickness 1.9 cm LVPW Diastolic Thickness 1.5 cm 0.6 - 1.0 / 0.6 - 0.9 cm LVPW Systolic Thickness 1.9 cm LVOT Diameter 2.0 cm LV Ejection Fraction 2D Teich 53.7 % LV Ejection Fraction MOD 4C 60.3 % LV Ejection Fraction MOD 2C 51.7 % LV Ejection Fraction 2C AL 54.4 % LA Diameter 3.5 cm RA Systolic Volume 4C AL 41.8 ml RA Systolic Volume 4C MOD 40.8 ml Aorta at Sinotubular Diameter 2.6 cm IVC Diameter 1.6 cm M-MODE LA Ao Ratio MM 1.2 AV Cusp Separation MM 1.0 cm DOPPLER AV Peak Velocity 303.5 cm/s LVOT Peak Velocity 65.0 cm/s AV Area Cont Eq vti 1.0 cm squared AV Area Cont Eq pk 0.7 cm squared MV Peak Velocity 70.0 cm/s MV Area PHT 3.0 cm squared Mitral E to A Ratio 0.8 TV Peak Velocity 198.0 cm/s TR Peak Velocity 207.0 cm/s TR Peak Gradient 17.1 mmHg TV Peak E Velocity 58.0 cm/s FINDINGS Left Ventricle Normal left ventricular size, systolic function and wall thickness, with no regional wall motion abnormalities. Left ventricular ejection fraction is estimated at 60 %. Grade I/IV diastolic dysfunction (abnormal relaxation filling pattern), normal to mildly elevated filling pressures. Right Ventricle The right ventricle is normal in size and function. Right Atrium The right atrium is normal in size. Left Atrium Moderately increased left atrial size. Mitral Valve Moderately thickened mitral valve. Moderate mitral annular calcification. No mitral valve stenosis. Trace mitral valve regurgitation. Aortic Valve Severe aortic valve calcification. Moderate to severe aortic valve stenosis, mean gradient 14.8 mmHg, SANKET 0.96 cm squared. Trace aortic valve regurgitation. Tricuspid Valve Structurally normal tricuspid valve without significant stenosis or regurgitation. Pulmonary artery systolic pressure is normal. Pulmonic Valve Structurally normal pulmonic valve without significant stenosis. There is no pulmonic regurgitation. Pericardium Normal pericardium without effusion. Aorta Normal ascending aorta dimension. IVC The inferior vena cava appears normal. CONCLUSIONS Normal left ventricular size, systolic function and wall thickness, with no regional wall motion abnormalities. Left ventricular ejection fraction is estimated at 60 %. Grade I/IV diastolic dysfunction (abnormal relaxation filling pattern), normal to mildly elevated filling pressures. Severe aortic valve calcification. Moderate to severe aortic valve stenosis, mean gradient 14.8 mmHg, SANKET 0.96 cm squared. Trace aortic valve regurgitation. Moderately thickened mitral valve. Moderate mitral annular calcification. No mitral valve stenosis. Trace mitral valve regurgitation. There is no pericardial effusion. Right atrial pressure is around 5 mm of mercury. Aleksandra Moses MD (Electronically Signed) Final Date: 11 May 2025 13:06 S
== END 2025-05-22 23:59 | disposition home or self-care (01) ==
LOC: ONCMED 12:53 → RAD 12:54
PROVIDERS: PCP Nurse Practitioner Family; Visit Provider Psychiatry & Neurology Neurology
DX: R06.02 Shortness of breath; I35.0 Nonrheumatic aortic (valve) stenosis; R93.1 Abnormal findings on diagnostic imaging of heart and coronary circulation; I51.7 Cardiomegaly; I34.81 Nonrheumatic mitral (valve) annulus calcification; I35.8 Other nonrheumatic aortic valve disorders; Z53.9 Procedure and treatment not carried out, unspecified reason
CPT/HCPCS: 93306; 96523

== ENCOUNTER 2025-06-06 11:44 | Oncology outpatient (recurring) (ONCR) | payer MEDICARE, OTHER, SELFPAY ==
[2025-06-06 12:13] LABS: INR 1.90 (0.8-1.2); Prothrombin Time 22.90 SECONDS (12.1-14.9)
== END 2025-06-21 23:59 | disposition home or self-care (01) ==
PROVIDERS: PCP Nurse Practitioner Family; Visit Provider Psychiatry & Neurology Neurology
DX: I65.29 Occlusion and stenosis of unspecified carotid artery (principal)
CPT/HCPCS: 36591; 85610

== ENCOUNTER → 2025-06-14 14:54 | Outpatient (BNVA) | payer MEDICARE, OTHER, SELFPAY | PROVIDERS: PCP Nurse Practitioner Family; Visit Provider Internal Medicine | DX: I25.10 Atherosclerotic heart disease of native coronary artery without angina pectoris (principal); I10 Essential (primary) hypertension; I73.9 Peripheral vascular disease, unspecified; E78.5 Hyperlipidemia, unspecified; J44.9 Chronic obstructive pulmonary disease, unspecified; Z79.01 Long term (current) use of anticoagulants; Z95.1 Presence of aortocoronary bypass graft; Z86.718 Personal history of other venous thrombosis and embolism; Z87.891 Personal history of nicotine dependence; I35.0 Nonrheumatic aortic (valve) stenosis | CPT/HCPCS: 99214 ==

== ENCOUNTER → 2025-06-22 15:00 | Outpatient (BNVA) | payer MEDICARE, OTHER, SELFPAY | PROVIDERS: PCP Nurse Practitioner Family; Visit Provider Nurse Practitioner Family | DX: I65.29 Occlusion and stenosis of unspecified carotid artery (principal) | CPT/HCPCS: 85610 ==

== ENCOUNTER 2025-07-04 11:32 | Oncology outpatient (recurring) (ONCR) | payer MEDICARE, OTHER, SELFPAY ==
[2025-07-04 12:07] LABS: Hematocrit 44.0 % (37-53); Hemoglobin 15.10 g/dL (11.27-16.99); Mean Corpuscular HGB Conc 34.3 g/dL (30-55); Mean Corpuscular Hemoglobin 30.0 pg (27-33); Mean Corpuscular Volume 87.5 fl (82-101); Nucleated Red Blood Cells % 0 %; Platelet Count 202 10^3/cmm (157-399); Red Blood Count 5.03 10^6/uL (3.85-5.65); White Blood Count 5.63 10^3/uL (3.29-11.43)
[2025-07-04 12:23] LABS: Alanine Aminotransferase 19 U/L (0-41); Albumin Level 3.9 g/dL (3.5-5.2); Alkaline Phosphatase 102 U/L (40-130); Anion Gap 16.0 (5-19); Aspartate Amino Transferase 19 U/L (0-40); Blood Urea Nitrogen 20 mg/dL (8-23); Calcium 8.9 mg/dL (8.5-10.5); Carbon Dioxide 24 mmol/L (22-29); Chloride 102 mmol/L (98-107); Globulin 2.8 g/dL (1.3-4.6); Glucose 115 mg/dL (65-115); Osmolality Calculated 290 mOsm/kg (285-295); Potassium 4.0 mmol/L (3.5-5.1); Sodium 138 mmol/L (136-145); Total Protein 6.7 g/dL (6.6-8.7)
[2025-07-04 12:34] LABS: Prostate Specific Antigen 1.420 ng/mL (0-4)
== END 2025-07-22 23:59 | disposition home or self-care (01) ==
LOC: ONCMED 11:32
PROVIDERS: Nurse Practitioner Family; PCP Nurse Practitioner Family; Visit Provider Psychiatry & Neurology Neurology
DX: R97.20 Elevated prostate specific antigen [PSA] (principal); E78.5 Hyperlipidemia, unspecified
CPT/HCPCS: 36591; 80053; 84153; 85025

== ENCOUNTER → 2025-07-06 10:33 | Outpatient (BNVA) | payer MEDICARE, OTHER, SELFPAY | PROVIDERS: PCP Nurse Practitioner Family; Visit Provider Nurse Practitioner Family | DX: I82.409 Acute embolism and thrombosis of unspecified deep veins of unspecified lower extremity (principal) | CPT/HCPCS: 85610 ==

== ENCOUNTER → 2025-07-18 13:06 | Outpatient (BNVA) | payer MEDICARE, OTHER, SELFPAY | PROVIDERS: PCP Nurse Practitioner Family; Visit Provider Nurse Practitioner Family | DX: I65.29 Occlusion and stenosis of unspecified carotid artery (principal); I82.409 Acute embolism and thrombosis of unspecified deep veins of unspecified lower extremity | CPT/HCPCS: 85610 ==

== ENCOUNTER → 2025-07-27 14:28 | Outpatient (BNVA) | payer MEDICARE, OTHER, SELFPAY | PROVIDERS: PCP Nurse Practitioner Family; Visit Provider Nurse Practitioner Family | DX: I65.29 Occlusion and stenosis of unspecified carotid artery (principal) | CPT/HCPCS: 85610 ==

== ENCOUNTER 2025-08-01 11:30 | Oncology outpatient (recurring) (ONCR) | payer MEDICARE, OTHER, SELFPAY ==
[2025-08-01 12:06] LABS: INR 1.37 (0.8-1.2); Prothrombin Time 17.80 SECONDS (12.1-14.9)
[2025-08-01 12:23] LABS: Cholesterol 176 mg/dL (0-200); HDL Cholesterol 40 mg/dL (60-100); Thyroid Stimulating Hormone 0.91 uIU/mL (0.27-4.20); Triglycerides 188 mg/dL (0-150)
== END 2025-08-21 23:59 | disposition home or self-care (01) ==
PROVIDERS: PCP Nurse Practitioner Family; Visit Provider Psychiatry & Neurology Neurology
DX: I65.29 Occlusion and stenosis of unspecified carotid artery (principal); D64.9 Anemia, unspecified
CPT/HCPCS: 36591; 80061; 84443; 85610

== ENCOUNTER → 2025-08-02 08:51 | Outpatient (BNVA) | payer MEDICARE, OTHER, SELFPAY | PROVIDERS: PCP Nurse Practitioner Family; Visit Provider Dermatology | DX: L21.8 Other seborrheic dermatitis (principal); L57.8 Other skin changes due to chronic exposure to nonionizing radiation; D48.5 Neoplasm of uncertain behavior of skin | CPT/HCPCS: 11102; 99204 ==

== ENCOUNTER → 2025-08-11 10:08 | Outpatient (BNVA) | payer MEDICARE, OTHER, SELFPAY | PROVIDERS: PCP Nurse Practitioner Family; Visit Provider Nurse Practitioner Family | DX: I65.29 Occlusion and stenosis of unspecified carotid artery (principal) | CPT/HCPCS: 85610 ==

== ENCOUNTER → 2025-08-22 13:43 | Outpatient (BNVA) | payer MEDICARE, OTHER, SELFPAY | PROVIDERS: PCP Nurse Practitioner Family; Visit Provider Dermatology | DX: C44.629 Squamous cell carcinoma of skin of left upper limb, including shoulder (principal) | CPT/HCPCS: 12032; 17313 ==

== ENCOUNTER 2025-09-05 12:00 | Oncology outpatient (recurring) (ONCR) | payer MEDICARE, OTHER, SELFPAY ==
[2025-09-05 12:33] LABS: Hematocrit 41.0 % (37-53); Hemoglobin 13.80 g/dL (11.27-16.99); Mean Corpuscular HGB Conc 33.7 g/dL (30-55); Mean Corpuscular Hemoglobin 29.9 pg (27-33); Mean Corpuscular Volume 88.7 fl (82-101); Nucleated Red Blood Cells % 0 %; Platelet Count 189 10^3/cmm (157-399); Red Blood Count 4.62 10^6/uL (3.85-5.65); White Blood Count 5.62 10^3/uL (3.29-11.43)
[2025-09-05 12:50] LABS: INR 1.84 (0.8-1.2); Prothrombin Time 22.40 SECONDS (12.1-14.9)
[2025-09-05 12:54] LABS: Alanine Aminotransferase 21 U/L (0-41); Albumin Level 3.7 g/dL (3.5-5.2); Alkaline Phosphatase 93 U/L (40-130); Anion Gap 15.1 (5-19); Aspartate Amino Transferase 20 U/L (0-40); Blood Urea Nitrogen 21 mg/dL (8-23); Calcium 8.5 mg/dL (8.5-10.5); Carbon Dioxide 25 mmol/L (22-29); Chloride 107 mmol/L (98-107); Globulin 2.6 g/dL (1.3-4.6); Glucose 108 mg/dL (65-115); Osmolality Calculated 300 mOsm/kg (285-295); Potassium 4.1 mmol/L (3.5-5.1); Sodium 143 mmol/L (136-145); Total Protein 6.3 g/dL (6.6-8.7)
== END 2025-09-21 23:59 | disposition home or self-care (01) ==
PROVIDERS: Internal Medicine Medical Oncology; PCP Nurse Practitioner Family; Visit Provider Psychiatry & Neurology Neurology
DX: D64.9 Anemia, unspecified (principal); R79.1 Abnormal coagulation profile; Z92.29 Personal history of other drug therapy
CPT/HCPCS: 36591; 80053; 85025; 85610

== ENCOUNTER → 2025-09-20 14:26 | Outpatient (BNVA) | payer MEDICARE, OTHER, SELFPAY | PROVIDERS: PCP Nurse Practitioner Family; Visit Provider Nurse Practitioner Family | DX: I65.29 Occlusion and stenosis of unspecified carotid artery (principal) | CPT/HCPCS: 85610 ==